=== PATIENT | female | born 1970 | race Caucasian/White ===

== ENCOUNTER 2018-08-24 10:31 | Inpatient (IN) | payer MEDICAID ==
[~2018-08-24] VITALS: Ht 177.8 cm; Wt 90.9 kg
[2018-08-24] MEDS ORDERED: normal saline 1000ML IV soln IV ONE (11:25)
[2018-08-24 11:52] LABS: BASOPHILS # (AUTO) 0.1 X10'3 (0-0.2); BASOPHILS % (AUTO) 0.5 % (0-1); EOSINOPHILS # (AUTO) 0.3 X10'3 (0-0.9); EOSINOPHILS % (AUTO) 2.5 % (0-6); HEMATOCRIT 35.4 % (35.0-45.0); HEMOGLOBIN 12.3 g/dl (12.0-16.0); LYMPHOCYTES # (AUTO) 1.5 X10'3 (1.1-4.8); LYMPHOCYTES % (AUTO) 12.2 % (21-51); MEAN CORPUSCULAR HGB CONC 34.7 % (33.0-36.5); MEAN CORPUSCULAR VOLUME 86.4 FL (78-98); MEAN PLATELET VOLUME 7.4 FL (7.4-10.4); MONOCYTES # (AUTO) 0.9 X10'3 (0-0.9); MONOCYTES % (AUTO) 6.9 % (2-12); NEUTROPHILS # (AUTO) 9.7 X10'3 (1.8-7.7); NEUTROPHILS % (AUTO) 77.9 % (42-75); PLATELET COUNT 533 X10'3 (140-440); RED CELL DISTRIBUTION WIDTH 14.8 % (11.5-14.5); WHITE BLOOD COUNT 12.5 X10'3 (4.5-11.0)
[2018-08-24 12:00] LABS: PARTIAL THROMBOPLASTIN TIME 27 SECONDS (22-32); PROTHROMBIN TIME 10.2 SECONDS (9.0-12.0)
[2018-08-24 13:20] LABS: ALANINE AMINOTRANSFERASE 30 U/L (12-78); ALBUMIN 2.4 G/DL (3.4-5.0); ALBUMIN/GLOBULIN RATIO 0.5 (1.1-1.5); ALKALINE PHOSPHATASE 98 IU/L (46-116); ANION GAP 7 (8-16); ASPARTATE AMINO TRANSFERASE 24 U/L (10-37); BILIRUBIN,TOTAL 0.3 MG/DL (0.1-1.0); BLOOD UREA NITROGEN 6 MG/DL (7-18); BUN/CREATININE RATIO 7.7 (6.6-38.0); CALCIUM 7.9 MG/DL (8.5-10.1); CHLORIDE 100 MMOL/L (99-107); CREATININE 0.78 MG/DL (0.40-0.90); GLUCOSE 79 MG/DL (70-104); MAGNESIUM 2.1 MG/DL (1.5-2.4); POTASSIUM 4.5 MMOL/L (3.5-5.1); SODIUM 137 MMOL/L (135-145); TOTAL CARBON DIOXIDE 29.6 MMOL/L (24-32); TOTAL PROTEIN 7.5 G/DL (6.4-8.2); eGFR 78 ML/MIN
[2018-08-24 13:34] LABS: CLARITY,URINE SLIGHTLY CLOUDY (Clear); COLOR,URINE STRAW (Yellow); GLUCOSE, URINE NEGATIVE (Neg); KETONES,URINE NEGATIVE (Neg); LEUKOCYTE ESTERASE ,URINE NEGATIVE (Neg); NITRITES, URINE NEGATIVE (Neg); OCCULT BLOOD,URINE NEGATIVE (Neg); PROTEIN,URINE NEGATIVE (Neg); UROBILINOGEN,URINE 0.2 E.U/dL (0.2-1.0)
[2018-08-24 13:38] LABS: URINE HCG NEGATIVE (NEG)
[2018-08-24 13:43] LABS: SQUAMOUS EPITHELIAL CELL,UR MANY /LPF (FEW); UA COLLECTION TYPE CLN CATCH MIDSTREAM
[2018-08-24 13:44] LABS: BACTERIA,URINE FEW /HPF (Neg); MUCUS STRANDS NONE SEEN /LPF (Neg); RBC,URINE 0-2 /HPF (0-2); WBC,URINE 0-4 /HPF (0-4); YEAST FEW /HPF (NEGATIVE)
[2018-08-24] MEDS ORDERED: CefTRIAXone 2gm/D5W 50ml 50 ML IV ONE (14:10)
[2018-08-24] MEDS ORDERED: magnesium Cl slow-release 64mg tablet PO PRN (15:20)
[2018-08-24] MEDS ORDERED: potassium Cl 20 mEq SR tablet PO PRN ×2 (15:20)
[2018-08-24] MEDS ORDERED: HYDROcodone/acetaminophen 5mg/325mg tablet PO PRN (15:20)
[2018-08-24] MEDS ORDERED: morphine 2 MG/ML inj. syringe IV PRN (15:20)
[2018-08-24] MEDS ORDERED: bisacodyl 10mg suppository rectal RC PRN (15:20)
[2018-08-24] MEDS ORDERED: ondansetron/PF 4mg/2ml inj IV PRN (15:20)
[2018-08-24] MEDS ORDERED: acetaminophen 325mg tablet PO PRN (15:20)
[2018-08-24] MEDS ORDERED: magnesium 4gm in 100ml NS 100 ML IV PRN (15:20)
[2018-08-24] MEDS ORDERED: magnesium 1gm/100ml D5W IVPB 100 ML IV PRN (15:20)
[2018-08-24] MEDS ORDERED: mag hydrox/Alum hydrox/simeth 30ml oral suspension PO PRN (15:20)
[2018-08-24] MEDS ORDERED: potassium Cl 40MEQ/NS 500ml 500 ML IV PRN ×2 (15:20)
[2018-08-24] MEDS ORDERED: magnesium hydroxide 30ml (MOM) UD suspension PO PRN (15:20)
[2018-08-24] MEDS ORDERED: magnesium 2GM in 50ml NS 50 ML IV PRN (15:29)
[2018-08-24] MEDS: linezolid 600mg/300ml PREMIX 300 ML IV SCH (15:47)
[2018-08-24] MEDS: normal saline 1000ml 1,000 ML IV SCH ×2 (16:02→20:30)
[2018-08-24] MEDS: aspirin 325mg tablet, delayed-release (Ecotrin) PO SCH (16:12)
[2018-08-24 20:00] VITALS: BP 133/65
[2018-08-24] MEDS: HYDROcodone/acetaminophen 10/325mg tab PO PRN (20:28)
[2018-08-24] MEDS: docusate sod 100mg capsule PO SCH (20:28)
[2018-08-24] MEDS: heparin, porcine 5000 units/ml vial SQ SCH (20:29)
[2018-08-24] MEDS ORDERED: pregabalin 25mg capsule PO SCH (21:00)
[2018-08-24] MEDS ORDERED: nicotine 21mg patch - 24 hr TD ONE (21:25)
[2018-08-24] MEDS: QUEtiapine 25mg tablet PO SCH (21:43)
[2018-08-24 23:00] VITALS: BP 113/60
[2018-08-25] MEDS: linezolid 600mg/300ml PREMIX 300 ML IV SCH ×2 (03:35→08:16)
[2018-08-25 05:29] LABS: BASOPHILS # (AUTO) 0.1 X10'3 (0-0.2); BASOPHILS % (AUTO) 0.7 % (0-1); EOSINOPHILS # (AUTO) 0.3 X10'3 (0-0.9); EOSINOPHILS % (AUTO) 3.3 % (0-6); HEMATOCRIT 33.6 % (35.0-45.0); HEMOGLOBIN 11.5 g/dl (12.0-16.0); LYMPHOCYTES # (AUTO) 1.7 X10'3 (1.1-4.8); LYMPHOCYTES % (AUTO) 22.6 % (21-51); MEAN CORPUSCULAR HEMOGLOBIN 29.9 PG (27.0-31.0); MEAN CORPUSCULAR HGB CONC 34.1 % (33.0-36.5); MEAN CORPUSCULAR VOLUME 87.8 FL (78-98); MEAN PLATELET VOLUME 7.6 FL (7.4-10.4); MONOCYTES # (AUTO) 0.5 X10'3 (0-0.9); MONOCYTES % (AUTO) 6.9 % (2-12); NEUTROPHILS # (AUTO) 5.1 X10'3 (1.8-7.7); NEUTROPHILS % (AUTO) 66.5 % (42-75); PLATELET COUNT 461 X10'3 (140-440); RED BLOOD COUNT 3.83 X10'6 (4.20-5.60); WHITE BLOOD COUNT 7.7 X10'3 (4.5-11.0)
[2018-08-25 05:36] LABS: ALBUMIN 1.9 G/DL (3.4-5.0); ANION GAP 3 (8-16); BLOOD UREA NITROGEN 7 MG/DL (7-18); BUN/CREATININE RATIO 8.9 (6.6-38.0); CHLORIDE 104 MMOL/L (99-107); CREATININE 0.79 MG/DL (0.40-0.90); GLUCOSE 84 MG/DL (70-104); MAGNESIUM 2.2 MG/DL (1.5-2.4); POTASSIUM 3.8 MMOL/L (3.5-5.1); SODIUM 137 MMOL/L (135-145); TOTAL CARBON DIOXIDE 29.8 MMOL/L (24-32); eGFR 77 ML/MIN
[2018-08-25 07:00] VITALS: BP 139/76
[2018-08-25] MEDS: K and/or MAG REPLACEMENT MC SCH (08:00)
[2018-08-25] MEDS: aspirin 325mg tablet, delayed-release (Ecotrin) PO SCH (08:15)
[2018-08-25] MEDS: docusate sod 100mg capsule PO SCH ×2 (08:15→20:00)
[2018-08-25] MEDS: heparin, porcine 5000 units/ml vial SQ SCH ×2 (08:16→20:01)
[2018-08-25] MEDS: nicotine 21mg patch - 24 hr TD SCH (08:16)
[2018-08-25] MEDS: HYDROcodone/acetaminophen 10/325mg tab PO PRN ×3 (08:21→19:58)
[2018-08-25] MEDS: morphine 2 MG/ML inj. syringe IV PRN (10:42)
[2018-08-25 11:11] VITALS: BP 152/72
[2018-08-25] MEDS ORDERED: PREG100C PO (11:53)
[2018-08-25] MEDS: CefTRIAXone/D5W-Rocephin 1gm 50 ML IV SCH (12:25)
[2018-08-25] MEDS ORDERED: lactose-reduced food (Ensure High Protein) 237ml bottle PO SCH (13:00)
[2018-08-25] MEDS ORDERED: pregabalin 75mg capsule PO SCH ×2 (14:55→21:00)
[2018-08-25] MEDS: pregabalin 75mg capsule PO SCH ×2 (15:24→21:40)
[2018-08-25] MEDS: pregabalin 25mg capsule PO SCH ×2 (15:24→21:40)
[2018-08-25] MEDS: normal saline 1000ml 1,000 ML IV SCH (16:19)
[2018-08-25 19:00] VITALS: BP 168/83
[2018-08-25] MEDS: linezolid 600mg tablet PO SCH (19:59)
[2018-08-25] MEDS: lactobacillus rhamnosus 10,000 MMU CELLS/CAPSULE PO SCH (19:59)
[2018-08-25] MEDS ORDERED: pregabalin 25mg capsule PO SCH (21:00)
[2018-08-25] MEDS: QUEtiapine 25mg tablet PO SCH (21:40)
[2018-08-25 23:00] VITALS: BP 148/73
[2018-08-26 03:28] LABS: ALBUMIN 2.2 G/DL (3.4-5.0); ANION GAP 9 (8-16); BLOOD UREA NITROGEN 9 MG/DL (7-18); CALCIUM 8.8 MG/DL (8.5-10.1); CHLORIDE 100 MMOL/L (99-107); CREATININE 0.75 MG/DL (0.40-0.90); GLUCOSE 86 MG/DL (70-104); MAGNESIUM 2.3 MG/DL (1.5-2.4); POTASSIUM 3.8 MMOL/L (3.5-5.1); SODIUM 138 MMOL/L (135-145); TOTAL CARBON DIOXIDE 29.1 MMOL/L (24-32); eGFR 82 ML/MIN
[2018-08-26] MEDS: normal saline 1000ml 1,000 ML IV SCH ×2 (05:28→17:01)
[2018-08-26 07:00] VITALS: BP 127/65
[2018-08-26] MEDS: heparin, porcine 5000 units/ml vial SQ SCH ×2 (07:03→20:31)
[2018-08-26] MEDS: K and/or MAG REPLACEMENT MC SCH (07:04)
[2018-08-26] MEDS: pregabalin 75mg capsule PO SCH ×3 (08:10→20:30)
[2018-08-26] MEDS: docusate sod 100mg capsule PO SCH ×2 (08:10→20:29)
[2018-08-26] MEDS: aspirin 325mg tablet, delayed-release (Ecotrin) PO SCH (08:10)
[2018-08-26] MEDS: CefTRIAXone/D5W-Rocephin 1gm 50 ML IV SCH (08:10)
[2018-08-26] MEDS: linezolid 600mg tablet PO SCH ×2 (08:10→20:35)
[2018-08-26] MEDS: pregabalin 25mg capsule PO SCH ×3 (08:10→20:30)
[2018-08-26] MEDS: lactobacillus rhamnosus 10,000 MMU CELLS/CAPSULE PO SCH ×2 (08:10→20:29)
[2018-08-26] MEDS: nicotine 21mg patch - 24 hr TD SCH (08:11)
[2018-08-26] MEDS: morphine 2 MG/ML inj. syringe IV PRN (11:43)
[2018-08-26 12:00] VITALS: BP 156/79
[2018-08-26 20:00] VITALS: BP 154/80
[2018-08-26] MEDS: QUEtiapine 25mg tablet PO SCH (20:29)
[2018-08-26] MEDS: HYDROcodone/acetaminophen 10/325mg tab PO PRN (23:31)
[2018-08-27] VITALS: BP 128/62
[2018-08-27 05:03] LABS: BASOPHILS # (AUTO) 0.1 X10'3 (0-0.2); BASOPHILS % (AUTO) 0.7 % (0-1); EOSINOPHILS # (AUTO) 0.3 X10'3 (0-0.9); EOSINOPHILS % (AUTO) 3.7 % (0-6); HEMATOCRIT 36.7 % (35.0-45.0); HEMOGLOBIN 12.4 g/dl (12.0-16.0); LYMPHOCYTES % (AUTO) 24.7 % (21-51); MEAN CORPUSCULAR HEMOGLOBIN 29.5 PG (27.0-31.0); MEAN CORPUSCULAR VOLUME 86.8 FL (78-98); MEAN PLATELET VOLUME 7.3 FL (7.4-10.4); MONOCYTES # (AUTO) 0.5 X10'3 (0-0.9); MONOCYTES % (AUTO) 6.7 % (2-12); NEUTROPHILS # (AUTO) 5.1 X10'3 (1.8-7.7); NEUTROPHILS % (AUTO) 64.2 % (42-75); PLATELET COUNT 548 X10'3 (140-440); RED BLOOD COUNT 4.22 X10'6 (4.20-5.60); RED CELL DISTRIBUTION WIDTH 14.8 % (11.5-14.5); WHITE BLOOD COUNT 7.9 X10'3 (4.5-11.0)
[2018-08-27] MEDS: normal saline 1000ml 1,000 ML IV SCH (05:11)
[2018-08-27 05:34] LABS: ALBUMIN 2.3 G/DL (3.4-5.0); ANION GAP 9 (8-16); BLOOD UREA NITROGEN 10 MG/DL (7-18); BUN/CREATININE RATIO 12.7 (6.6-38.0); CALCIUM 9.2 MG/DL (8.5-10.1); CHLORIDE 101 MMOL/L (99-107); CREATININE 0.79 MG/DL (0.40-0.90); GLUCOSE 76 MG/DL (70-104); MAGNESIUM 2.3 MG/DL (1.5-2.4); POTASSIUM 3.9 MMOL/L (3.5-5.1); SODIUM 139 MMOL/L (135-145); TOTAL CARBON DIOXIDE 28.6 MMOL/L (24-32); eGFR 77 ML/MIN
[2018-08-27 06:59] VITALS: BP 133/88
[2018-08-27] MEDS: pregabalin 75mg capsule PO SCH ×3 (07:20→20:23)
[2018-08-27] MEDS: docusate sod 100mg capsule PO SCH ×2 (07:20→20:23)
[2018-08-27] MEDS: lactobacillus rhamnosus 10,000 MMU CELLS/CAPSULE PO SCH ×2 (07:20→20:23)
[2018-08-27] MEDS: aspirin 325mg tablet, delayed-release (Ecotrin) PO SCH (07:20)
[2018-08-27] MEDS: linezolid 600mg tablet PO SCH (07:20)
[2018-08-27] MEDS: pregabalin 25mg capsule PO SCH ×3 (07:20→20:23)
[2018-08-27] MEDS: CefTRIAXone/D5W-Rocephin 1gm 50 ML IV SCH (07:21)
[2018-08-27] MEDS: nicotine 21mg patch - 24 hr TD SCH (07:21)
[2018-08-27] MEDS: heparin, porcine 5000 units/ml vial SQ SCH ×2 (07:22→20:24)
[2018-08-27] MEDS: K and/or MAG REPLACEMENT MC SCH (07:23)
[2018-08-27] MEDS ORDERED: LIDOcaine 1% (10mg/ml)w/preservative injection 20ml MDV SQ ONE (08:30)
[2018-08-27] MEDS ORDERED: LIDOcaine 2% 5ml jelly TOP ONE (08:30)
[2018-08-27] MEDS ORDERED: LIDOcaine 1% (10mg/ml) 2ml vial SQ ONE (08:45)
[2018-08-27] MEDS: HYDROcodone/acetaminophen 10/325mg tab PO PRN ×2 (10:12→20:28)
[2018-08-27] MEDS: morphine 2 MG/ML inj. syringe IV PRN (10:55)
[2018-08-27 12:00] VITALS: BP 142/77
[2018-08-27] MEDS: lactose-reduced food (Ensure High Protein) 237ml bottle PO SCH ×2 (13:00→18:13)
[2018-08-27 13:23] LABS: C-REACTIVE PROTEIN 2.79 MG/DL (0.0-0.5)
[2018-08-27 13:33] LABS: HEMOGLOBIN A1C 6.1 % (4.5-6.2)
[2018-08-27 14:25] LABS: HIV ANTIBODY 1&2 RAPID NON-REACTIVE (Neg)
[2018-08-27] MEDS: Potassium Cl inj 10 MEQ in normal saline 1000ml 1,000 ML IV SCH (16:36)
[2018-08-27] MEDS ORDERED: LORA10TA7 PO (17:03)
[2018-08-27] MEDS ORDERED: CLOP75TA15 PO (17:03)
[2018-08-27] MEDS ORDERED: METH-360 PO (17:06)
[2018-08-27 20:00] VITALS: BP 143/64
[2018-08-27] MEDS: QUEtiapine 25mg tablet PO SCH (20:23)
[2018-08-28] VITALS: BP 143/61
[2018-08-28] MEDS ORDERED: NIAC500T23 (05:22)
[2018-08-28] MEDS ORDERED: OMEP-50 (05:22)
[2018-08-28] MEDS ORDERED: QUET25TA PO (05:22)
[2018-08-28] MEDS ORDERED: ALBU8HFA PO (05:22)
[2018-08-28] MEDS ORDERED: OMEG1CAP2 (05:22)
[2018-08-28] MEDS ORDERED: SIMV10TA2 PO (05:22)
[2018-08-28 05:29] LABS: ALBUMIN 2.5 G/DL (3.4-5.0); ANION GAP 9 (8-16); CALCIUM 8.8 MG/DL (8.5-10.1); CHLORIDE 102 MMOL/L (99-107); CREATININE 0.73 MG/DL (0.40-0.90); GLUCOSE 79 MG/DL (70-104); MAGNESIUM 2.3 MG/DL (1.5-2.4); SODIUM 138 MMOL/L (135-145); TOTAL CARBON DIOXIDE 27.4 MMOL/L (24-32); eGFR 85 ML/MIN
[2018-08-28] MEDS: HYDROcodone/acetaminophen 10/325mg tab PO PRN ×2 (05:47→20:28)
[2018-08-28] MEDS: Potassium Cl inj 10 MEQ in normal saline 1000ml 1,000 ML IV SCH ×2 (05:47→20:32)
[2018-08-28 05:48] LABS: BLOOD UREA NITROGEN 12 MG/DL (7-18); BUN/CREATININE RATIO 16.4 (6.6-38.0)
[2018-08-28 07:39] VITALS: BP 141/77
[2018-08-28] MEDS: K and/or MAG REPLACEMENT MC SCH (07:41)
[2018-08-28] MEDS: morphine 2 MG/ML inj. syringe IV PRN (07:55)
[2018-08-28] MEDS: heparin, porcine 5000 units/ml vial SQ SCH ×2 (08:00→20:29)
[2018-08-28] MEDS: lactobacillus rhamnosus 10,000 MMU CELLS/CAPSULE PO SCH ×2 (08:23→20:28)
[2018-08-28] MEDS: aspirin 325mg tablet, delayed-release (Ecotrin) PO SCH (08:23)
[2018-08-28] MEDS: pregabalin 25mg capsule PO SCH ×3 (08:24→20:27)
[2018-08-28] MEDS: docusate sod 100mg capsule PO SCH ×2 (08:24→20:27)
[2018-08-28] MEDS: pregabalin 75mg capsule PO SCH ×3 (08:24→20:27)
[2018-08-28] MEDS: nicotine 21mg patch - 24 hr TD SCH (08:26)
[2018-08-28] MEDS: CefTRIAXone 2gm/D5W 50ml 50 ML IV SCH (08:27)
[2018-08-28] MEDS: lactose-reduced food (Ensure High Protein) 237ml bottle PO SCH ×3 (08:34→18:38)
[2018-08-28 11:44] VITALS: BP 143/76
[2018-08-28 20:00] VITALS: BP 154/79
[2018-08-28] MEDS: QUEtiapine 25mg tablet PO SCH (20:28)
[2018-08-29] VITALS: BP 148/65
[2018-08-29 05:03] LABS: BASOPHILS # (AUTO) 0.1 X10'3 (0-0.2); BASOPHILS % (AUTO) 0.7 % (0-1); EOSINOPHILS # (AUTO) 0.3 X10'3 (0-0.9); EOSINOPHILS % (AUTO) 3.1 % (0-6); HEMATOCRIT 40.2 % (35.0-45.0); HEMOGLOBIN 13.6 g/dl (12.0-16.0); LYMPHOCYTES # (AUTO) 2.1 X10'3 (1.1-4.8); LYMPHOCYTES % (AUTO) 23.2 % (21-51); MEAN CORPUSCULAR HEMOGLOBIN 29.1 PG (27.0-31.0); MEAN CORPUSCULAR HGB CONC 33.7 % (33.0-36.5); MEAN CORPUSCULAR VOLUME 86.4 FL (78-98); MEAN PLATELET VOLUME 7.1 FL (7.4-10.4); MONOCYTES # (AUTO) 0.4 X10'3 (0-0.9); MONOCYTES % (AUTO) 4.8 % (2-12); NEUTROPHILS # (AUTO) 6.2 X10'3 (1.8-7.7); NEUTROPHILS % (AUTO) 68.2 % (42-75); PLATELET COUNT 585 X10'3 (140-440); RED BLOOD COUNT 4.66 X10'6 (4.20-5.60); RED CELL DISTRIBUTION WIDTH 15.2 % (11.5-14.5)
[2018-08-29 05:15] LABS: ALBUMIN 2.7 G/DL (3.4-5.0); ANION GAP 9 (8-16); BLOOD UREA NITROGEN 16 MG/DL (7-18); BUN/CREATININE RATIO 21.6 (6.6-38.0); CALCIUM 8.9 MG/DL (8.5-10.1); CHLORIDE 100 MMOL/L (99-107); CREATININE 0.74 MG/DL (0.40-0.90); GLUCOSE 86 MG/DL (70-104); MAGNESIUM 2.3 MG/DL (1.5-2.4); POTASSIUM 4.3 MMOL/L (3.5-5.1); SODIUM 136 MMOL/L (135-145); TOTAL CARBON DIOXIDE 27.1 MMOL/L (24-32); eGFR 83 ML/MIN
[2018-08-29] MEDS: HYDROcodone/acetaminophen 10/325mg tab PO PRN ×3 (06:01→17:44)
[2018-08-29] MEDS: aspirin 325mg tablet, delayed-release (Ecotrin) PO SCH (07:48)
[2018-08-29] MEDS: pregabalin 75mg capsule PO SCH ×3 (07:48→20:43)
[2018-08-29] MEDS: pregabalin 25mg capsule PO SCH ×3 (07:48→20:42)
[2018-08-29] MEDS: lactobacillus rhamnosus 10,000 MMU CELLS/CAPSULE PO SCH ×2 (07:48→20:42)
[2018-08-29] MEDS: CefTRIAXone 2gm/D5W 50ml 50 ML IV SCH (07:48)
[2018-08-29] MEDS: docusate sod 100mg capsule PO SCH ×2 (07:48→20:42)
[2018-08-29] MEDS: heparin, porcine 5000 units/ml vial SQ SCH ×2 (07:49→20:42)
[2018-08-29] MEDS: nicotine 21mg patch - 24 hr TD SCH (07:50)
[2018-08-29] MEDS: lactose-reduced food (Ensure High Protein) 237ml bottle PO SCH ×4 (07:58→18:27)
[2018-08-29] MEDS: K and/or MAG REPLACEMENT MC SCH (07:59)
[2018-08-29 08:00] VITALS: BP 123/65
[2018-08-29] MEDS: Potassium Cl inj 10 MEQ in normal saline 1000ml 1,000 ML IV SCH (10:33)
[2018-08-29 11:53] VITALS: BP 110/61
[2018-08-29 20:00] VITALS: BP 144/76
[2018-08-29] MEDS: QUEtiapine 25mg tablet PO SCH (20:43)
[2018-08-30] VITALS: BP 110/54
[2018-08-30 07:07] VITALS: BP 129/73
[2018-08-30] MEDS: pregabalin 75mg capsule PO SCH ×3 (07:52→20:11)
[2018-08-30] MEDS: aspirin 325mg tablet, delayed-release (Ecotrin) PO SCH (07:52)
[2018-08-30] MEDS: nicotine 21mg patch - 24 hr TD SCH (07:52)
[2018-08-30] MEDS: pregabalin 25mg capsule PO SCH ×3 (07:52→20:11)
[2018-08-30] MEDS: lactobacillus rhamnosus 10,000 MMU CELLS/CAPSULE PO SCH ×2 (07:52→20:11)
[2018-08-30] MEDS: heparin, porcine 5000 units/ml vial SQ SCH ×2 (07:53→11:22)
[2018-08-30] MEDS: CefTRIAXone 2gm/D5W 50ml 50 ML IV SCH (07:53)
[2018-08-30] MEDS: docusate sod 100mg capsule PO SCH ×2 (08:00→20:11)
[2018-08-30] MEDS: K and/or MAG REPLACEMENT MC SCH (08:00)
[2018-08-30] MEDS: lactose-reduced food (Ensure High Protein) 237ml bottle PO SCH ×3 (08:02→18:00)
[2018-08-30 08:06] LABS: ALBUMIN 2.9 G/DL (3.4-5.0); ANION GAP 10 (8-16); BLOOD UREA NITROGEN 16 MG/DL (7-18); BUN/CREATININE RATIO 22.9 (6.6-38.0); CALCIUM 9.4 MG/DL (8.5-10.1); CHLORIDE 100 MMOL/L (99-107); GLUCOSE 88 MG/DL (70-104); MAGNESIUM 2.3 MG/DL (1.5-2.4); POTASSIUM 4.2 MMOL/L (3.5-5.1); SODIUM 137 MMOL/L (135-145); TOTAL CARBON DIOXIDE 26.6 MMOL/L (24-32); eGFR 89 ML/MIN
[2018-08-30] MEDS: HYDROcodone/acetaminophen 10/325mg tab PO PRN ×2 (08:25→20:13)
[2018-08-30 11:54] VITALS: BP 122/64
[2018-08-30 13:43] LABS: BASOPHILS % (AUTO) 0.4 % (0-1); EOSINOPHILS # (AUTO) 0.2 X10'3 (0-0.9); EOSINOPHILS % (AUTO) 2.2 % (0-6); LYMPHOCYTES # (AUTO) 1.6 X10'3 (1.1-4.8); LYMPHOCYTES % (AUTO) 14.4 % (21-51); MEAN CORPUSCULAR HEMOGLOBIN 29.4 PG (27.0-31.0); MEAN CORPUSCULAR HGB CONC 33.8 % (33.0-36.5); MEAN CORPUSCULAR VOLUME 86.9 FL (78-98); MEAN PLATELET VOLUME 7.1 FL (7.4-10.4); MONOCYTES # (AUTO) 0.3 X10'3 (0-0.9); MONOCYTES % (AUTO) 3.2 % (2-12); NEUTROPHILS # (AUTO) 8.6 X10'3 (1.8-7.7); NEUTROPHILS % (AUTO) 79.8 % (42-75); PRE OP HEMATOCRIT 40.1 % (35.0-45.0); PRE OP HEMOGLOBIN 13.6 g/dL (12.0-16.0); PRE OP PLATELET COUNT 564 X10'3 (140-440); RED BLOOD COUNT 4.62 X10'6 (4.20-5.60); RED CELL DISTRIBUTION WIDTH 15.5 % (11.5-14.5)
[2018-08-30 16:26] LABS: PRE OP PROTIME 10.1 SECONDS (9.0-12.0)
[2018-08-30 18:40] VITALS: BP 145/75
[2018-08-30] MEDS: QUEtiapine 25mg tablet PO SCH (21:23)
[2018-08-31] VITALS (18 sets, daily range): BP systolic 99–122; BP diastolic 47–73
[2018-08-31 07:01] LABS: ALBUMIN 3.2 G/DL (3.4-5.0); ANION GAP 8 (8-16); BLOOD UREA NITROGEN 18 MG/DL (7-18); BUN/CREATININE RATIO 21.4 (6.6-38.0); CALCIUM 9.7 MG/DL (8.5-10.1); CHLORIDE 98 MMOL/L (99-107); CREATININE 0.84 MG/DL (0.40-0.90); GLUCOSE 84 MG/DL (70-104); MAGNESIUM 2.4 MG/DL (1.5-2.4); SODIUM 138 MMOL/L (135-145); TOTAL CARBON DIOXIDE 32.1 MMOL/L (24-32); eGFR 72 ML/MIN
[2018-08-31] MEDS: nicotine 21mg patch - 24 hr TD SCH (08:00)
[2018-08-31] MEDS: lactobacillus rhamnosus 10,000 MMU CELLS/CAPSULE PO SCH ×2 (08:00→21:03)
[2018-08-31] MEDS: lactose-reduced food (Ensure High Protein) 237ml bottle PO SCH ×3 (08:00→18:00)
[2018-08-31] MEDS: pregabalin 25mg capsule PO SCH ×3 (08:00→21:03)
[2018-08-31] MEDS: K and/or MAG REPLACEMENT MC SCH (08:00)
[2018-08-31] MEDS: CefTRIAXone 2gm/D5W 50ml 50 ML IV SCH (08:00)
[2018-08-31] MEDS: docusate sod 100mg capsule PO SCH ×2 (08:00→20:00)
[2018-08-31] MEDS: pregabalin 75mg capsule PO SCH ×3 (08:00→21:03)
[2018-08-31] MEDS: aspirin 325mg tablet, delayed-release (Ecotrin) PO SCH (08:00)
[2018-08-31] MEDS: heparin, porcine 5000 units/ml vial SQ SCH ×2 (09:21→21:01)
[2018-08-31] MEDS: HYDROcodone/acetaminophen 10/325mg tab PO PRN ×2 (09:22→22:08)
[2018-08-31] MEDS ORDERED: BUPIVAcaine/PF 2.5mg/ml (0.25%) 10ml vial ONE (10:28)
[2018-08-31] MEDS ORDERED: bacitracin 15gm ointment TP ONE (10:30)
[2018-08-31] MEDS ORDERED: fentaNYL/PF 50MCG/1 ML 2ML syringe ONE (11:00)
[2018-08-31] MEDS ORDERED: BUPIVAcaine/PF 2.5 mg/ml (0.25%) 30ml vial ONE (11:00)
[2018-08-31] MEDS ORDERED: BUPIVAcaine/PF 7.5mg/ml (0.75%) 10ml vial ONE (11:00)
[2018-08-31] MEDS ORDERED: MIDAZolam 5mg/5ml vial ONE (11:00)
[2018-08-31] MEDS ORDERED: LIDOcaine 1%/PF 5ML 10 MG/ML VIAL ONE (11:00)
[2018-08-31] MEDS ORDERED: propofol 10mg/ml 20ml vial IV ONE (11:00)
[2018-08-31] MEDS ORDERED: povidone-iodine 10% topical ointment 28.4gm TP ONE (11:38)
[2018-08-31] MEDS ORDERED: meperidine/PF 25mg/ml syringe ONE (12:41)
[2018-08-31] MEDS ORDERED: meperidine/PF 25mg/ml syringe IV PRN ×3 (13:25)
[2018-08-31] MEDS ORDERED: ondansetron/PF 4mg/2ml inj IV PRN (13:25)
[2018-08-31] MEDS ORDERED: proCHLORperazine 10 MG/2 ml inj IV PRN (13:25)
[2018-08-31] MEDS ORDERED: ringers solution, lacted 1,000 ML IV SCH (13:25)
[2018-08-31] MEDS ORDERED: morphine 4 MG/ML inj SYRINge IV PRN ×2 (13:25)
[2018-08-31] MEDS ORDERED: normal saline 1000ml 1,000 ML IV SCH (16:06)
[2018-08-31] MEDS: NYSTATIN CREAM - 30GM TUBE TP SCH (20:00)
[2018-08-31] MEDS: QUEtiapine 25mg tablet PO SCH (21:03)
[2018-09-01] VITALS: BP 102/59
[2018-09-01 05:12] LABS: BASOPHILS # (AUTO) 0.1 X10'3 (0-0.2); BASOPHILS % (AUTO) 0.5 % (0-1); EOSINOPHILS # (AUTO) 0.4 X10'3 (0-0.9); HEMATOCRIT 34.2 % (35.0-45.0); HEMOGLOBIN 11.8 g/dl (12.0-16.0); LYMPHOCYTES # (AUTO) 1.4 X10'3 (1.1-4.8); LYMPHOCYTES % (AUTO) 11.8 % (21-51); MEAN CORPUSCULAR HEMOGLOBIN 29.9 PG (27.0-31.0); MEAN CORPUSCULAR HGB CONC 34.3 % (33.0-36.5); MEAN CORPUSCULAR VOLUME 87.2 FL (78-98); MEAN PLATELET VOLUME 7.3 FL (7.4-10.4); MONOCYTES # (AUTO) 0.8 X10'3 (0-0.9); MONOCYTES % (AUTO) 6.5 % (2-12); NEUTROPHILS # (AUTO) 9.5 X10'3 (1.8-7.7); NEUTROPHILS % (AUTO) 78.2 % (42-75); PLATELET COUNT 450 X10'3 (140-440); RED BLOOD COUNT 3.93 X10'6 (4.20-5.60); RED CELL DISTRIBUTION WIDTH 15.2 % (11.5-14.5); WHITE BLOOD COUNT 12.1 X10'3 (4.5-11.0)
[2018-09-01 05:32] LABS: ALBUMIN 2.8 G/DL (3.4-5.0); ANION GAP 11 (8-16); BLOOD UREA NITROGEN 19 MG/DL (7-18); BUN/CREATININE RATIO 22.4 (6.6-38.0); CALCIUM 9.3 MG/DL (8.5-10.1); CHLORIDE 97 MMOL/L (99-107); CREATININE 0.85 MG/DL (0.40-0.90); GLUCOSE 86 MG/DL (70-104); POTASSIUM 4.3 MMOL/L (3.5-5.1); SODIUM 135 MMOL/L (135-145); TOTAL CARBON DIOXIDE 27.5 MMOL/L (24-32); eGFR 71 ML/MIN
[2018-09-01 07:07] VITALS: BP 106/60
[2018-09-01] MEDS: CefTRIAXone 2gm/D5W 50ml 50 ML IV SCH (07:34)
[2018-09-01] MEDS: lactobacillus rhamnosus 10,000 MMU CELLS/CAPSULE PO SCH ×2 (07:34→19:08)
[2018-09-01] MEDS: pregabalin 25mg capsule PO SCH ×3 (07:34→21:13)
[2018-09-01] MEDS: aspirin 325mg tablet, delayed-release (Ecotrin) PO SCH (07:34)
[2018-09-01] MEDS: pregabalin 75mg capsule PO SCH ×3 (07:34→21:14)
[2018-09-01] MEDS: docusate sod 100mg capsule PO SCH ×2 (07:35→19:08)
[2018-09-01] MEDS: HYDROcodone/acetaminophen 10/325mg tab PO PRN ×3 (07:35→21:14)
[2018-09-01] MEDS: lactose-reduced food (Ensure High Protein) 237ml bottle PO SCH ×3 (07:36→18:00)
[2018-09-01] MEDS: nicotine 21mg patch - 24 hr TD SCH (07:36)
[2018-09-01] MEDS: K and/or MAG REPLACEMENT MC SCH (08:00)
[2018-09-01] MEDS: NYSTATIN CREAM - 30GM TUBE TP SCH (08:00)
[2018-09-01 12:12] VITALS: BP 99/64
[2018-09-01] MEDS: heparin, porcine 5000 units/ml vial SQ SCH (19:09)
[2018-09-01] MEDS: morphine 2 MG/ML inj. syringe IV PRN (19:09)
[2018-09-01 20:00] VITALS: BP 105/59
[2018-09-01] MEDS: QUEtiapine 25mg tablet PO SCH (21:14)
[2018-09-01] MEDS: clotrimazole 1% vaginal cream 45gm VG SCH (21:15)
[2018-09-02] VITALS: BP 99/58
[2018-09-02 04:53] LABS: ALBUMIN 2.7 G/DL (3.4-5.0); ANION GAP 8 (8-16); BLOOD UREA NITROGEN 17 MG/DL (7-18); BUN/CREATININE RATIO 22.7 (6.6-38.0); CALCIUM 9.1 MG/DL (8.5-10.1); CHLORIDE 99 MMOL/L (99-107); CREATININE 0.75 MG/DL (0.40-0.90); GLUCOSE 85 MG/DL (70-104); POTASSIUM 3.9 MMOL/L (3.5-5.1); SODIUM 136 MMOL/L (135-145); TOTAL CARBON DIOXIDE 28.6 MMOL/L (24-32); eGFR 82 ML/MIN
[2018-09-02 07:15] VITALS: BP 100/66
[2018-09-02] MEDS: CefTRIAXone 2gm/D5W 50ml 50 ML IV SCH (07:36)
[2018-09-02] MEDS: pregabalin 25mg capsule PO SCH ×3 (07:37→20:56)
[2018-09-02] MEDS: pregabalin 75mg capsule PO SCH ×3 (07:37→20:57)
[2018-09-02] MEDS: heparin, porcine 5000 units/ml vial SQ SCH ×2 (07:37→19:14)
[2018-09-02] MEDS: aspirin 325mg tablet, delayed-release (Ecotrin) PO SCH (07:37)
[2018-09-02] MEDS: HYDROcodone/acetaminophen 10/325mg tab PO PRN ×3 (07:38→20:57)
[2018-09-02] MEDS: lactobacillus rhamnosus 10,000 MMU CELLS/CAPSULE PO SCH ×2 (07:38→19:14)
[2018-09-02] MEDS: docusate sod 100mg capsule PO SCH ×2 (07:38→19:14)
[2018-09-02] MEDS: nicotine 21mg patch - 24 hr TD SCH (07:39)
[2018-09-02] MEDS: K and/or MAG REPLACEMENT MC SCH (08:00)
[2018-09-02] MEDS: lactose-reduced food (Ensure High Protein) 237ml bottle PO SCH ×3 (08:14→18:00)
[2018-09-02 10:56] VITALS: BP 84/59
[2018-09-02 18:00] VITALS: BP 120/58
[2018-09-02] MEDS: QUEtiapine 25mg tablet PO SCH (20:57)
[2018-09-02] MEDS: clotrimazole 1% vaginal cream 45gm VG SCH (20:58)
[2018-09-03] VITALS: BP 105/59
[2018-09-03] MEDS: HYDROcodone/acetaminophen 10/325mg tab PO PRN ×2 (01:24→12:49)
[2018-09-03 05:57] LABS: ALBUMIN 2.7 G/DL (3.4-5.0); ANION GAP 7 (8-16); BLOOD UREA NITROGEN 16 MG/DL (7-18); BUN/CREATININE RATIO 22.9 (6.6-38.0); CALCIUM 8.9 MG/DL (8.5-10.1); CHLORIDE 101 MMOL/L (99-107); GLUCOSE 80 MG/DL (70-104); POTASSIUM 4.1 MMOL/L (3.5-5.1); SODIUM 139 MMOL/L (135-145); TOTAL CARBON DIOXIDE 31.1 MMOL/L (24-32); eGFR 89 ML/MIN
[2018-09-03 07:00] VITALS: BP 112/58
[2018-09-03] MEDS: docusate sod 100mg capsule PO SCH ×2 (08:00→20:20)
[2018-09-03] MEDS: K and/or MAG REPLACEMENT MC SCH (08:00)
[2018-09-03] MEDS: heparin, porcine 5000 units/ml vial SQ SCH ×2 (08:09→20:21)
[2018-09-03] MEDS: aspirin 325mg tablet, delayed-release (Ecotrin) PO SCH (08:09)
[2018-09-03] MEDS: pregabalin 75mg capsule PO SCH ×3 (08:09→20:19)
[2018-09-03] MEDS: pregabalin 25mg capsule PO SCH ×3 (08:09→20:19)
[2018-09-03] MEDS: lactobacillus rhamnosus 10,000 MMU CELLS/CAPSULE PO SCH ×2 (08:09→20:20)
[2018-09-03] MEDS: nicotine 21mg patch - 24 hr TD SCH (08:10)
[2018-09-03] MEDS: CefTRIAXone 2gm/D5W 50ml 50 ML IV SCH (08:10)
[2018-09-03] MEDS: lactose-reduced food (Ensure High Protein) 237ml bottle PO SCH ×3 (08:11→18:08)
[2018-09-03 11:00] VITALS: BP 122/68
[2018-09-03 18:00] VITALS: BP 117/60
[2018-09-03] MEDS: QUEtiapine 25mg tablet PO SCH (20:20)
[2018-09-03] MEDS: clotrimazole 1% vaginal cream 45gm VG SCH (20:27)
[2018-09-04] VITALS: BP 103/53
[2018-09-04 05:47] LABS: BASOPHILS # (AUTO) 0.1 X10'3 (0-0.2); BASOPHILS % (AUTO) 0.9 % (0-1); EOSINOPHILS # (AUTO) 0.3 X10'3 (0-0.9); HEMATOCRIT 32.3 % (35.0-45.0); HEMOGLOBIN 11.4 g/dl (12.0-16.0); LYMPHOCYTES # (AUTO) 2.1 X10'3 (1.1-4.8); LYMPHOCYTES % (AUTO) 23.1 % (21-51); MEAN CORPUSCULAR HEMOGLOBIN 30.6 PG (27.0-31.0); MEAN CORPUSCULAR HGB CONC 35.2 % (33.0-36.5); MEAN CORPUSCULAR VOLUME 87.1 FL (78-98); MEAN PLATELET VOLUME 8.6 FL (7.4-10.4); MONOCYTES # (AUTO) 0.7 X10'3 (0-0.9); MONOCYTES % (AUTO) 7.4 % (2-12); NEUTROPHILS # (AUTO) 5.9 X10'3 (1.8-7.7); NEUTROPHILS % (AUTO) 65.6 % (42-75); PLATELET COUNT 386 X10'3 (140-440); RED CELL DISTRIBUTION WIDTH 15.3 % (11.5-14.5); WHITE BLOOD COUNT 9.1 X10'3 (4.5-11.0)
[2018-09-04 05:59] LABS: ALANINE AMINOTRANSFERASE 50 U/L (12-78); ALBUMIN 2.7 G/DL (3.4-5.0); ALBUMIN/GLOBULIN RATIO 0.6 (1.1-1.5); ALKALINE PHOSPHATASE 75 IU/L (46-116); ANION GAP 9 (8-16); ASPARTATE AMINO TRANSFERASE 36 U/L (10-37); BILIRUBIN,TOTAL 0.2 MG/DL (0.1-1.0); BLOOD UREA NITROGEN 17 MG/DL (7-18); BUN/CREATININE RATIO 24.6 (6.6-38.0); CALCIUM 8.8 MG/DL (8.5-10.1); CHLORIDE 99 MMOL/L (99-107); CREATININE 0.69 MG/DL (0.40-0.90); GLUCOSE 86 MG/DL (70-104); PHOSPHORUS 3.5 MG/DL (2.3-4.5); SODIUM 137 MMOL/L (135-145); TOTAL CARBON DIOXIDE 29.2 MMOL/L (24-32); TOTAL PROTEIN 7.5 G/DL (6.4-8.2); eGFR 90 ML/MIN
[2018-09-04 07:00] VITALS: BP 116/64
[2018-09-04] MEDS: lactose-reduced food (Ensure High Protein) 237ml bottle PO SCH ×3 (08:00→18:00)
[2018-09-04] MEDS: CefTRIAXone 2gm/D5W 50ml 50 ML IV SCH (08:00)
[2018-09-04] MEDS: heparin, porcine 5000 units/ml vial SQ SCH ×2 (08:00→20:21)
[2018-09-04] MEDS: pregabalin 75mg capsule PO SCH ×3 (08:00→20:21)
[2018-09-04] MEDS: nicotine 21mg patch - 24 hr TD SCH (08:00)
[2018-09-04] MEDS: aspirin 325mg tablet, delayed-release (Ecotrin) PO SCH (08:00)
[2018-09-04] MEDS: lactobacillus rhamnosus 10,000 MMU CELLS/CAPSULE PO SCH ×2 (08:00→20:21)
[2018-09-04] MEDS: pregabalin 25mg capsule PO SCH ×3 (08:00→20:22)
[2018-09-04] MEDS: docusate sod 100mg capsule PO SCH ×2 (08:00→20:21)
[2018-09-04] MEDS: K and/or MAG REPLACEMENT MC SCH (08:00)
[2018-09-04] MEDS: HYDROcodone/acetaminophen 10/325mg tab PO PRN ×2 (11:04→20:22)
[2018-09-04 11:57] VITALS: BP 97/64
[2018-09-04 20:00] VITALS: BP 130/62
[2018-09-04] MEDS: clotrimazole 1% vaginal cream 45gm VG SCH (20:22)
[2018-09-04] MEDS: QUEtiapine 25mg tablet PO SCH (20:22)
[2018-09-05] VITALS: BP 122/82
[2018-09-05 04:09] LABS: BASOPHILS # (AUTO) 0.1 X10'3 (0-0.2); EOSINOPHILS # (AUTO) 0.3 X10'3 (0-0.9); MONOCYTES # (AUTO) 0.7 X10'3 (0-0.9); NEUTROPHILS # (AUTO) 5.6 X10'3 (1.8-7.7)
[2018-09-05 04:12] LABS: ALANINE AMINOTRANSFERASE 52 U/L (12-78); ALBUMIN 2.8 G/DL (3.4-5.0); ALBUMIN/GLOBULIN RATIO 0.6 (1.1-1.5); ALKALINE PHOSPHATASE 73 IU/L (46-116); ANION GAP 7 (8-16); ASPARTATE AMINO TRANSFERASE 31 U/L (10-37); BILIRUBIN,TOTAL 0.2 MG/DL (0.1-1.0); BLOOD UREA NITROGEN 18 MG/DL (7-18); BUN/CREATININE RATIO 23.4 (6.6-38.0); CHLORIDE 98 MMOL/L (99-107); CREATININE 0.77 MG/DL (0.40-0.90); GLUCOSE 103 MG/DL (70-104); PHOSPHORUS 3.9 MG/DL (2.3-4.5); POTASSIUM 3.8 MMOL/L (3.5-5.1); SODIUM 136 MMOL/L (135-145); TOTAL CARBON DIOXIDE 30.6 MMOL/L (24-32); TOTAL PROTEIN 7.5 G/DL (6.4-8.2); eGFR 80 ML/MIN
[2018-09-05 04:21] LABS: BASOPHILS % (AUTO) 0.9 % (0-1); HEMATOCRIT 32.1 % (35.0-45.0); HEMOGLOBIN 11.3 g/dl (12.0-16.0); LYMPHOCYTES # (AUTO) 2.7 X10'3 (1.1-4.8); LYMPHOCYTES % (AUTO) 28.2 % (21-51); MEAN CORPUSCULAR HEMOGLOBIN 30.6 PG (27.0-31.0); MEAN CORPUSCULAR HGB CONC 35.1 % (33.0-36.5); MEAN PLATELET VOLUME 8.4 FL (7.4-10.4); MONOCYTES % (AUTO) 7.3 % (2-12); NEUTROPHILS % (AUTO) 60.6 % (42-75); PLATELET COUNT 412 X10'3 (140-440); RED BLOOD COUNT 3.69 X10'6 (4.20-5.60); RED CELL DISTRIBUTION WIDTH 15.2 % (11.5-14.5); WHITE BLOOD COUNT 9.4 X10'3 (4.5-11.0)
[2018-09-05 08:00] VITALS: BP 102/64
[2018-09-05] MEDS: lactobacillus rhamnosus 10,000 MMU CELLS/CAPSULE PO SCH ×2 (08:17→19:34)
[2018-09-05] MEDS: pregabalin 75mg capsule PO SCH ×3 (08:18→19:35)
[2018-09-05] MEDS: pregabalin 25mg capsule PO SCH ×3 (08:18→19:35)
[2018-09-05] MEDS: aspirin 325mg tablet, delayed-release (Ecotrin) PO SCH (08:18)
[2018-09-05] MEDS: nicotine 21mg patch - 24 hr TD SCH (08:19)
[2018-09-05] MEDS: CefTRIAXone 2gm/D5W 50ml 50 ML IV SCH (08:21)
[2018-09-05] MEDS: heparin, porcine 5000 units/ml vial SQ SCH ×2 (08:21→19:35)
[2018-09-05] MEDS: docusate sod 100mg capsule PO SCH ×2 (08:22→19:34)
[2018-09-05] MEDS: HYDROcodone/acetaminophen 10/325mg tab PO PRN ×3 (08:42→23:55)
[2018-09-05] MEDS: lactose-reduced food (Ensure High Protein) 237ml bottle PO SCH ×3 (08:44→17:43)
[2018-09-05] MEDS: K and/or MAG REPLACEMENT MC SCH (08:48)
[2018-09-05 12:21] VITALS: BP 94/76
[2018-09-05 19:35] VITALS: BP 137/83
[2018-09-05] MEDS: clotrimazole 1% vaginal cream 45gm VG SCH (19:36)
[2018-09-05] MEDS: QUEtiapine 25mg tablet PO SCH (19:45)
[2018-09-06] VITALS: BP 109/58
[2018-09-06] MEDS: HYDROcodone/acetaminophen 10/325mg tab PO PRN ×3 (05:00→19:55)
[2018-09-06 05:25] LABS: ALANINE AMINOTRANSFERASE 65 U/L (12-78); ALBUMIN 2.9 G/DL (3.4-5.0); ALBUMIN/GLOBULIN RATIO 0.6 (1.1-1.5); ALKALINE PHOSPHATASE 81 IU/L (46-116); ANION GAP 5 (8-16); ASPARTATE AMINO TRANSFERASE 34 U/L (10-37); BILIRUBIN,TOTAL 0.2 MG/DL (0.1-1.0); BLOOD UREA NITROGEN 17 MG/DL (7-18); BUN/CREATININE RATIO 28.3 (6.6-38.0); CALCIUM 9.1 MG/DL (8.5-10.1); CHLORIDE 98 MMOL/L (99-107); GLUCOSE 103 MG/DL (70-104); MAGNESIUM 2.1 MG/DL (1.5-2.4); PHOSPHORUS 3.9 MG/DL (2.3-4.5); POTASSIUM 4.2 MMOL/L (3.5-5.1); SODIUM 136 MMOL/L (135-145); TOTAL CARBON DIOXIDE 32.8 MMOL/L (24-32); TOTAL PROTEIN 7.8 G/DL (6.4-8.2); eGFR > 90 ML/MIN
[2018-09-06 05:49] LABS: BASOPHILS # (AUTO) 0.1 X10'3 (0-0.2); EOSINOPHILS # (AUTO) 0.3 X10'3 (0-0.9); EOSINOPHILS % (AUTO) 3.5 % (0-6); HEMATOCRIT 33.5 % (35.0-45.0); HEMOGLOBIN 11.9 g/dl (12.0-16.0); LYMPHOCYTES # (AUTO) 2.4 X10'3 (1.1-4.8); LYMPHOCYTES % (AUTO) 28.6 % (21-51); MEAN CORPUSCULAR HEMOGLOBIN 30.8 PG (27.0-31.0); MEAN CORPUSCULAR HGB CONC 35.4 % (33.0-36.5); MEAN CORPUSCULAR VOLUME 86.9 FL (78-98); MEAN PLATELET VOLUME 8.4 FL (7.4-10.4); MONOCYTES # (AUTO) 0.7 X10'3 (0-0.9); NEUTROPHILS # (AUTO) 4.8 X10'3 (1.8-7.7); NEUTROPHILS % (AUTO) 58.9 % (42-75); PLATELET COUNT 393 X10'3 (140-440); RED BLOOD COUNT 3.86 X10'6 (4.20-5.60); RED CELL DISTRIBUTION WIDTH 14.9 % (11.5-14.5); WHITE BLOOD COUNT 8.3 X10'3 (4.5-11.0)
[2018-09-06 07:10] VITALS: BP 102/63
[2018-09-06] MEDS: lactose-reduced food (Ensure High Protein) 237ml bottle PO SCH ×3 (08:00→18:21)
[2018-09-06] MEDS: K and/or MAG REPLACEMENT MC SCH (08:00)
[2018-09-06] MEDS: heparin, porcine 5000 units/ml vial SQ SCH ×2 (09:09→19:54)
[2018-09-06] MEDS: pregabalin 25mg capsule PO SCH ×3 (09:10→21:37)
[2018-09-06] MEDS: nicotine 21mg patch - 24 hr TD SCH (09:10)
[2018-09-06] MEDS: lactobacillus rhamnosus 10,000 MMU CELLS/CAPSULE PO SCH ×2 (09:11→19:55)
[2018-09-06] MEDS: aspirin 325mg tablet, delayed-release (Ecotrin) PO SCH (09:11)
[2018-09-06] MEDS: pregabalin 75mg capsule PO SCH ×3 (09:11→21:37)
[2018-09-06] MEDS: docusate sod 100mg capsule PO SCH ×2 (09:12→19:55)
[2018-09-06 11:13] VITALS: BP 112/67
[2018-09-06] MEDS ORDERED: CefTRIAXone 2gm/D5W 50ml 50 ML IV ONE (12:55)
[2018-09-06] MEDS ORDERED: albuterol 2.5 MG/3 ML nebule NEB PRN (15:55)
[2018-09-06] MEDS ORDERED: pregabalin 25mg capsule PO SCH (16:00)
[2018-09-06] MEDS: clopidogrel 75mg tablet PO SCH (16:23)
[2018-09-06] MEDS: cyclobenzaprine 10mg tablet PO SCH (16:23)
[2018-09-06 20:00] VITALS: BP 122/59
[2018-09-06] MEDS: QUEtiapine 25mg tablet PO SCH (21:00)
[2018-09-06] MEDS ORDERED: QUEtiapine 25mg tablet PO SCH (21:00)
[2018-09-06] MEDS: clotrimazole 1% vaginal cream 45gm VG SCH (21:00)
[2018-09-06] MEDS ORDERED: atorvastatin 10mg tablet PO SCH (21:00)
[2018-09-07 00:07] VITALS: BP 88/51
[2018-09-07] MEDS: cyclobenzaprine 10mg tablet PO SCH ×2 (00:19→07:26)
[2018-09-07 05:19] LABS: BASOPHILS # (AUTO) 0.1 X10'3 (0-0.2); EOSINOPHILS # (AUTO) 0.3 X10'3 (0-0.9); EOSINOPHILS % (AUTO) 3.3 % (0-6); HEMOGLOBIN 11.1 g/dl (12.0-16.0); LYMPHOCYTES # (AUTO) 2.3 X10'3 (1.1-4.8); LYMPHOCYTES % (AUTO) 27.6 % (21-51); MEAN CORPUSCULAR HEMOGLOBIN 31.1 PG (27.0-31.0); MEAN CORPUSCULAR HGB CONC 35.7 % (33.0-36.5); MEAN CORPUSCULAR VOLUME 87.1 FL (78-98); MEAN PLATELET VOLUME 8.1 FL (7.4-10.4); MONOCYTES # (AUTO) 0.7 X10'3 (0-0.9); MONOCYTES % (AUTO) 8.6 % (2-12); NEUTROPHILS # (AUTO) 4.9 X10'3 (1.8-7.7); NEUTROPHILS % (AUTO) 59.5 % (42-75); PLATELET COUNT 367 X10'3 (140-440); RED BLOOD COUNT 3.56 X10'6 (4.20-5.60); WHITE BLOOD COUNT 8.3 X10'3 (4.5-11.0)
[2018-09-07 05:26] LABS: ALANINE AMINOTRANSFERASE 53 U/L (12-78); ALBUMIN 2.8 G/DL (3.4-5.0); ALBUMIN/GLOBULIN RATIO 0.6 (1.1-1.5); ALKALINE PHOSPHATASE 80 IU/L (46-116); ANION GAP 4 (8-16); ASPARTATE AMINO TRANSFERASE 24 U/L (10-37); BILIRUBIN,TOTAL 0.2 MG/DL (0.1-1.0); BLOOD UREA NITROGEN 18 MG/DL (7-18); BUN/CREATININE RATIO 23.7 (6.6-38.0); CALCIUM 8.9 MG/DL (8.5-10.1); CHLORIDE 98 MMOL/L (99-107); CREATININE 0.76 MG/DL (0.40-0.90); GLUCOSE 97 MG/DL (70-104); PHOSPHORUS 3.8 MG/DL (2.3-4.5); POTASSIUM 4.2 MMOL/L (3.5-5.1); SODIUM 136 MMOL/L (135-145); TOTAL PROTEIN 7.4 G/DL (6.4-8.2); eGFR 81 ML/MIN
[2018-09-07] MEDS: docusate sod 100mg capsule PO SCH (07:26)
[2018-09-07] MEDS: aspirin 325mg tablet, delayed-release (Ecotrin) PO SCH (07:26)
[2018-09-07] MEDS: pregabalin 75mg capsule PO SCH ×2 (07:26→13:34)
[2018-09-07] MEDS: lactobacillus rhamnosus 10,000 MMU CELLS/CAPSULE PO SCH (07:26)
[2018-09-07] MEDS: clopidogrel 75mg tablet PO SCH (07:26)
[2018-09-07] MEDS: pregabalin 25mg capsule PO SCH ×2 (07:26→13:34)
[2018-09-07] MEDS: nicotine 21mg patch - 24 hr TD SCH (07:29)
[2018-09-07] MEDS: heparin, porcine 5000 units/ml vial SQ SCH (07:30)
[2018-09-07] MEDS: K and/or MAG REPLACEMENT MC SCH (07:42)
[2018-09-07 07:50] VITALS: BP 93/51
[2018-09-07] MEDS ORDERED: loratadine 10mg tablet PO SCH (08:00)
[2018-09-07] MEDS ORDERED: CefTRIAXone 2gm/D5W 50ml 50 ML IV SCH (08:00)
[2018-09-07] MEDS: lactose-reduced food (Ensure High Protein) 237ml bottle PO SCH ×2 (08:33→13:34)
[2018-09-07 11:30] VITALS: BP 106/66
[2018-09-07] MEDS ORDERED: LACT1CAP26 PO (12:18)
[2018-09-07] MEDS ORDERED: COL100C PO (12:18)
[2018-09-07] MEDS ORDERED: NICO-687 TD (12:18)
[2018-09-07] MEDS ORDERED: CLOT45CR8 VG (12:18)
[2018-09-07] MEDS ORDERED: ASPI-1265 PO (12:18)
[2018-09-07] MEDS ORDERED: LACT-228 PO (12:18)
[2018-09-18] MEDS ORDERED: CEFP100T7 PO (11:50)
[2018-09-18] MEDS ORDERED: METR500T4 PO (11:50)
== END 2018-09-07 13:30 | disposition home or self-care (01) | DRG 305 ==
LOC: ER 10:31 → ED HOLD 15:19 → SUR 3N 18:51
PROVIDERS: ADMIT Internal Medicine; ATTEND Internal Medicine
PROC: 0JBR0ZZ Excision of Left Foot Subcutaneous Tissue and Fascia, Open Approach (ICD-10-PCS; 2018-08-24)
PROC: 0JBQ0ZZ Excision of Right Foot Subcutaneous Tissue and Fascia, Open Approach (ICD-10-PCS; 2018-08-24)
PROC: 0Y6M0Z9 Detachment at Right Foot, Partial 1st Ray, Open Approach (ICD-10-PCS; principal; 2018-08-31 10:58)
DX: T87.44 Infection of amputation stump, left lower extremity (principal); G61.0 Guillain-Barre syndrome; L89.894 Pressure ulcer of other site, stage 4; L03.116 Cellulitis of left lower limb; M86.8X8 Other osteomyelitis, other site; I73.9 Peripheral vascular disease, unspecified; I77.1 Stricture of artery; F32.9 Major depressive disorder, single episode, unspecified; F41.9 Anxiety disorder, unspecified; F17.210 Nicotine dependence, cigarettes, uncomplicated; D72.829 Elevated white blood cell count, unspecified; B95.61 Methicillin susceptible Staphylococcus aureus infection as the cause of diseases classified elsewhere; L02.611 Cutaneous abscess of right foot; Z59.0 Homelessness; Z87.442 Personal history of urinary calculi; Z88.8 Allergy status to other drugs, medicaments and biological substances; Z88.0 Allergy status to penicillin; Z99.3 Dependence on wheelchair; Z79.82 Long term (current) use of aspirin; Z71.6 Tobacco abuse counseling; Z89.422 Acquired absence of other left toe(s); Z89.421 Acquired absence of other right toe(s)
CPT/HCPCS: 36415; 71045; 73718; 80048; 80053; 81001; 81025; 83036; 83605; 83735; 84100; 84145; 85025; 85610; 85651; 85730; 86140; 86703; 87040; 87070; 87075; 87077; 87102; 87186; 93005; 93922; 93925; 96361; 96365; 97110; 97116; 97161; 97530; 99285; A6196; A6209; A6212; A6213; A6253; A6266; A6446; A6449; A7000; G0378; J0696; J1644; J2001; J2020; J2175; J2250; J2270; J2704; J3010; J3480; J3490; J7030; J7120

== ENCOUNTER 2018-09-10 09:28 | Day surgery (SDC) | payer MEDICAID ==
[~2018-09-10 09:28] MED LIST: ALBU8HFA PO; ASPI-1265 PO; CLOP75TA15 PO; CLOT45CR8 VG; COL100C PO; LACT-228 PO; LACT1CAP26 PO; LORA10TA7 PO; METH-360 PO; NICO-687 TD; OMEG1CAP2; OMEP-50; PREG100C PO; QUET25TA PO; SIMV10TA2 PO
[2018-09-10] MEDS ORDERED: LIDOcaine/PRILOcaine 5gm cream TP ONE ×2 (11:29→13:00)
[2018-09-10] MEDS ORDERED: LIDOcaine 1%/PF 5ML 10 MG/ML VIAL ONE (11:52)
== END 2018-09-10 13:15 | disposition home or self-care (01) ==
LOC: WOUND CARE 09:28
PROVIDERS: ATTEND Surgery
DX: T87.89 Other complications of amputation stump (principal); L97.511 Non-pressure chronic ulcer of other part of right foot limited to breakdown of skin; L97.521 Non-pressure chronic ulcer of other part of left foot limited to breakdown of skin; Y83.5 Amputation of limb(s) as the cause of abnormal reaction of the patient, or of later complication, without mention of misadventure at the time of the procedure
CPT/HCPCS: 11042; 97597; A6209; A6266; A6446; J2001

== ENCOUNTER 2018-09-14 09:20 | Day surgery (SDC) | payer MEDICAID ==
[~2018-09-14 09:20] MED LIST changes: -NICO-687 TD
== END 2018-09-14 11:48 | disposition home or self-care (01) ==
LOC: WOUND CARE 09:20
PROVIDERS: ATTEND Surgery
DX: T87.89 Other complications of amputation stump (principal); L97.522 Non-pressure chronic ulcer of other part of left foot with fat layer exposed; L97.512 Non-pressure chronic ulcer of other part of right foot with fat layer exposed; Y83.5 Amputation of limb(s) as the cause of abnormal reaction of the patient, or of later complication, without mention of misadventure at the time of the procedure
CPT/HCPCS: 11042; 97597; A6266; A6446; A6449

== ENCOUNTER 2018-09-23 08:37 | Day surgery (SDC) | payer MEDICAID ==
[~2018-09-23 08:37] MED LIST changes: +CEFP100T7 PO; -CLOT45CR8 VG; -COL100C PO; +METR500T4 PO
== END 2018-09-23 11:01 | disposition home or self-care (01) ==
LOC: WOUND CARE 08:37
PROVIDERS: ATTEND Surgery
DX: T87.89 Other complications of amputation stump (principal); L97.522 Non-pressure chronic ulcer of other part of left foot with fat layer exposed; L97.512 Non-pressure chronic ulcer of other part of right foot with fat layer exposed; E78.5 Hyperlipidemia, unspecified; E66.9 Obesity, unspecified; G62.9 Polyneuropathy, unspecified; F41.9 Anxiety disorder, unspecified; F32.9 Major depressive disorder, single episode, unspecified; F17.210 Nicotine dependence, cigarettes, uncomplicated; Z68.30 Body mass index [BMI] 30.0-30.9, adult; Z79.02 Long term (current) use of antithrombotics/antiplatelets; Z79.82 Long term (current) use of aspirin; Z79.899 Other long term (current) drug therapy; Z87.440 Personal history of urinary (tract) infections; Z87.442 Personal history of urinary calculi; Y83.5 Amputation of limb(s) as the cause of abnormal reaction of the patient, or of later complication, without mention of misadventure at the time of the procedure
CPT/HCPCS: 11042; 97597; A6209; A6266; A6446

== ENCOUNTER 2018-09-25 08:57 | Day surgery (SDC) | payer MEDICAID ==
[~2018-09-25 08:57] MED LIST changes: +CLOT45CR8 VG; +COL100C PO; +NIAC500T23; +NICO-687 TD
== END 2018-09-25 10:55 | disposition home or self-care (01) ==
LOC: WOUND CARE 08:57
PROVIDERS: ATTEND Surgery
DX: T87.89 Other complications of amputation stump (principal); L97.522 Non-pressure chronic ulcer of other part of left foot with fat layer exposed; L97.514 Non-pressure chronic ulcer of other part of right foot with necrosis of bone; E78.5 Hyperlipidemia, unspecified; E66.9 Obesity, unspecified; G62.9 Polyneuropathy, unspecified; F41.9 Anxiety disorder, unspecified; F32.9 Major depressive disorder, single episode, unspecified; F17.210 Nicotine dependence, cigarettes, uncomplicated; Z68.30 Body mass index [BMI] 30.0-30.9, adult; Z79.02 Long term (current) use of antithrombotics/antiplatelets; Z79.82 Long term (current) use of aspirin; Z79.899 Other long term (current) drug therapy; Z87.440 Personal history of urinary (tract) infections; Z87.442 Personal history of urinary calculi; Y83.5 Amputation of limb(s) as the cause of abnormal reaction of the patient, or of later complication, without mention of misadventure at the time of the procedure
CPT/HCPCS: 11042; 97597; A6209; A6266

== ENCOUNTER 2018-09-28 08:37 | Outpatient (CLI) | payer MEDICAID ==
[~2018-09-28 08:37] MED LIST changes: -CLOT45CR8 VG; -COL100C PO; +LIDOcaine/PRILOcaine 5gm cream TP ONE; -NIAC500T23; -NICO-687 TD
== END 2018-09-28 11:11 | disposition home or self-care (01) ==
LOC: WOUND CARE 08:37 → EDSTATUS 09:00 → WOUND CARE 11:11
PROVIDERS: ATTEND Surgery
DX: T87.89 Other complications of amputation stump (principal); L97.522 Non-pressure chronic ulcer of other part of left foot with fat layer exposed; L97.514 Non-pressure chronic ulcer of other part of right foot with necrosis of bone; E78.5 Hyperlipidemia, unspecified; E66.9 Obesity, unspecified; G62.9 Polyneuropathy, unspecified; F41.9 Anxiety disorder, unspecified; F32.9 Major depressive disorder, single episode, unspecified; F17.210 Nicotine dependence, cigarettes, uncomplicated; Z68.30 Body mass index [BMI] 30.0-30.9, adult; Z79.02 Long term (current) use of antithrombotics/antiplatelets; Z79.82 Long term (current) use of aspirin; Z79.899 Other long term (current) drug therapy; Z87.440 Personal history of urinary (tract) infections; Z87.442 Personal history of urinary calculi; Y83.5 Amputation of limb(s) as the cause of abnormal reaction of the patient, or of later complication, without mention of misadventure at the time of the procedure
CPT/HCPCS: 99211; A6209; A6266; A6446

== ENCOUNTER 2018-10-05 08:45 | Day surgery (SDC) | payer MEDICAID ==
[2018-10-05] MEDS ORDERED: LIDOcaine/PRILOcaine 5gm cream TP ONE (11:08)
== END 2018-10-05 12:15 | disposition home or self-care (01) ==
LOC: WOUND CARE 08:45
PROVIDERS: ATTEND Surgery
DX: T87.89 Other complications of amputation stump (principal); L97.522 Non-pressure chronic ulcer of other part of left foot with fat layer exposed; L97.514 Non-pressure chronic ulcer of other part of right foot with necrosis of bone; E78.5 Hyperlipidemia, unspecified; E66.9 Obesity, unspecified; G62.9 Polyneuropathy, unspecified; F41.9 Anxiety disorder, unspecified; F32.9 Major depressive disorder, single episode, unspecified; F17.210 Nicotine dependence, cigarettes, uncomplicated; Z68.30 Body mass index [BMI] 30.0-30.9, adult; Z79.02 Long term (current) use of antithrombotics/antiplatelets; Z79.82 Long term (current) use of aspirin; Z79.899 Other long term (current) drug therapy; Z87.440 Personal history of urinary (tract) infections; Z87.442 Personal history of urinary calculi; Y83.5 Amputation of limb(s) as the cause of abnormal reaction of the patient, or of later complication, without mention of misadventure at the time of the procedure
CPT/HCPCS: A6021; A6206; A6212

== ENCOUNTER 2018-10-14 09:57 | Day surgery (SDC) | payer MEDICAID ==
[~2018-10-14 09:57] MED LIST changes: -ASPI-1265 PO; -LIDOcaine/PRILOcaine 5gm cream TP ONE; -METR500T4 PO
== END 2018-10-14 11:55 | disposition home or self-care (01) ==
LOC: WOUND CARE 09:57
PROVIDERS: ATTEND Surgery
DX: T81.89XD Other complications of procedures, not elsewhere classified, subsequent encounter (principal); L97.522 Non-pressure chronic ulcer of other part of left foot with fat layer exposed; L97.514 Non-pressure chronic ulcer of other part of right foot with necrosis of bone; E78.5 Hyperlipidemia, unspecified; E66.9 Obesity, unspecified; G62.9 Polyneuropathy, unspecified; F41.9 Anxiety disorder, unspecified; F32.9 Major depressive disorder, single episode, unspecified; F17.210 Nicotine dependence, cigarettes, uncomplicated; Z68.30 Body mass index [BMI] 30.0-30.9, adult; Z79.02 Long term (current) use of antithrombotics/antiplatelets; Z79.82 Long term (current) use of aspirin; Z79.899 Other long term (current) drug therapy; Z87.440 Personal history of urinary (tract) infections; Z87.442 Personal history of urinary calculi; Z89.422 Acquired absence of other left toe(s); Z89.421 Acquired absence of other right toe(s); Y83.8 Other surgical procedures as the cause of abnormal reaction of the patient, or of later complication, without mention of misadventure at the time of the procedure
CPT/HCPCS: 97597; A6209; A6206; A6446

== ENCOUNTER 2018-10-26 09:20 | Day surgery (SDC) | payer MEDICAID ==
[2018-10-26] MEDS ORDERED: LEVO750T21 PO (15:25)
== END 2018-10-26 12:22 | disposition home or self-care (01) ==
LOC: WOUND CARE 09:20
PROVIDERS: ATTEND Surgery
DX: T81.89XD Other complications of procedures, not elsewhere classified, subsequent encounter (principal); L97.522 Non-pressure chronic ulcer of other part of left foot with fat layer exposed; L97.514 Non-pressure chronic ulcer of other part of right foot with necrosis of bone; E78.5 Hyperlipidemia, unspecified; E66.9 Obesity, unspecified; G62.9 Polyneuropathy, unspecified; F41.9 Anxiety disorder, unspecified; F32.9 Major depressive disorder, single episode, unspecified; F17.210 Nicotine dependence, cigarettes, uncomplicated; Z68.30 Body mass index [BMI] 30.0-30.9, adult; Z79.02 Long term (current) use of antithrombotics/antiplatelets; Z79.82 Long term (current) use of aspirin; Z79.899 Other long term (current) drug therapy; Z87.440 Personal history of urinary (tract) infections; Z87.442 Personal history of urinary calculi; Z89.422 Acquired absence of other left toe(s); Z89.421 Acquired absence of other right toe(s); Y83.8 Other surgical procedures as the cause of abnormal reaction of the patient, or of later complication, without mention of misadventure at the time of the procedure
CPT/HCPCS: 11042; 87070; 87075; 87102; 87186; 97597; A6209; A6266; 87077; A6021; A6206; A6446

== ENCOUNTER 2018-10-29 09:27 | Outpatient (CLI) | payer MEDICAID ==
[~2018-10-29 09:27] MED LIST changes: +LEVO750T21 PO
== END 2018-10-29 11:58 | disposition home or self-care (01) ==
LOC: WOUND CARE 09:27 → EDSTATUS 10:00 → WOUND CARE 11:58
PROVIDERS: ATTEND Surgery
DX: T81.89XD Other complications of procedures, not elsewhere classified, subsequent encounter (principal); L97.522 Non-pressure chronic ulcer of other part of left foot with fat layer exposed; L97.514 Non-pressure chronic ulcer of other part of right foot with necrosis of bone; E78.5 Hyperlipidemia, unspecified; E66.9 Obesity, unspecified; G62.9 Polyneuropathy, unspecified; F41.9 Anxiety disorder, unspecified; F32.9 Major depressive disorder, single episode, unspecified; F17.210 Nicotine dependence, cigarettes, uncomplicated; Z68.30 Body mass index [BMI] 30.0-30.9, adult; Z79.02 Long term (current) use of antithrombotics/antiplatelets; Z79.82 Long term (current) use of aspirin; Z79.899 Other long term (current) drug therapy; Z87.440 Personal history of urinary (tract) infections; Z87.442 Personal history of urinary calculi; Z89.422 Acquired absence of other left toe(s); Z89.421 Acquired absence of other right toe(s); Y83.8 Other surgical procedures as the cause of abnormal reaction of the patient, or of later complication, without mention of misadventure at the time of the procedure
CPT/HCPCS: 99215; A6209; A6266; A6021; A6206; A6446

== ENCOUNTER 2018-11-02 07:22 | Emergency (ER) | payer MEDICAID ==
[~2018-11-02] VITALS: Ht 177.8 cm; Wt 90.7 kg
[2018-11-02] MEDS ORDERED: normal saline 1000ML IV soln IV ONE (07:55)
[2018-11-02] MEDS ORDERED: levoFLOXACIN-Levaquin 750MG/D5 150 ML IV ONE (07:55)
[2018-11-02] MEDS ORDERED: normal saline 1000ML IV soln IVB ONE (08:35)
[2018-11-02 08:41] LABS: BASOPHILS # (AUTO) 0.1 X10'3 (0-0.2); BASOPHILS % (AUTO) 0.7 % (0-1); EOSINOPHILS % (AUTO) 0.3 % (0-6); HEMATOCRIT 32.9 % (35.0-45.0); LYMPHOCYTES # (AUTO) 1.1 X10'3 (1.1-4.8); LYMPHOCYTES % (AUTO) 10.1 % (21-51); MEAN CORPUSCULAR HEMOGLOBIN 27.3 PG (27.0-31.0); MEAN CORPUSCULAR HGB CONC 33.4 % (33.0-36.5); MEAN CORPUSCULAR VOLUME 81.7 FL (78-98); MEAN PLATELET VOLUME 7.6 FL (7.4-10.4); MONOCYTES # (AUTO) 0.8 X10'3 (0-0.9); MONOCYTES % (AUTO) 7.6 % (2-12); NEUTROPHILS # (AUTO) 8.9 X10'3 (1.8-7.7); NEUTROPHILS % (AUTO) 81.3 % (42-75); PLATELET COUNT 610 X10'3 (140-440); RED BLOOD COUNT 4.03 X10'6 (4.20-5.60); RED CELL DISTRIBUTION WIDTH 16.1 % (11.5-14.5)
[2018-11-02 09:05] LABS: ALANINE AMINOTRANSFERASE 21 U/L (12-78); ALBUMIN/GLOBULIN RATIO 0.6 (1.1-1.5); ALKALINE PHOSPHATASE 114 IU/L (46-116); ANION GAP 11 (8-16); ASPARTATE AMINO TRANSFERASE 17 U/L (10-37); BILIRUBIN,TOTAL 0.4 MG/DL (0.1-1.0); BLOOD UREA NITROGEN 5 MG/DL (7-18); BUN/CREATININE RATIO 5.3 (6.6-38.0); CALCIUM 9.3 MG/DL (8.5-10.1); CHLORIDE 94 MMOL/L (99-107); CREATININE 0.94 MG/DL (0.40-0.90); GLUCOSE 114 MG/DL (70-104); MAGNESIUM 1.9 MG/DL (1.5-2.4); SODIUM 131 MMOL/L (135-145); TOTAL CARBON DIOXIDE 26.2 MMOL/L (24-32); TOTAL PROTEIN 8.3 G/DL (6.4-8.2); eGFR 63 ML/MIN
[2018-11-02 09:21] LABS: CLARITY,URINE CLEAR (Clear); COLOR,URINE YELLOW (Yellow); GLUCOSE, URINE NEGATIVE (Neg); KETONES,URINE NEGATIVE (Neg); LEUKOCYTE ESTERASE ,URINE NEGATIVE (Neg); NITRITES, URINE NEGATIVE (Neg); OCCULT BLOOD,URINE NEGATIVE (Neg); PH,URINE 6.5 (4.8-8.0); PROTEIN,URINE NEGATIVE (Neg); UROBILINOGEN,URINE 0.2 E.U/dL (0.2-1.0)
[2018-11-02 09:22] LABS: UA COLLECTION TYPE CLN CATCH MIDSTREAM
[2018-11-02] MEDS ORDERED: HYDR-4353 PO (09:44)
[2018-11-02] MEDS ORDERED: LEVO750T21 PO (09:44)
[2018-11-02 10:21] VITALS: BP 129/67
== END 2018-11-02 10:23 | disposition home or self-care (01) ==
LOC: ER 07:23
DX: L03.116 Cellulitis of left lower limb (principal); T81.49XA Infection following a procedure, other surgical site, initial encounter; Z87.891 Personal history of nicotine dependence; Z86.718 Personal history of other venous thrombosis and embolism; Z98.890 Other specified postprocedural states; Z88.0 Allergy status to penicillin; Z88.2 Allergy status to sulfonamides; Z88.1 Allergy status to other antibiotic agents; Z79.899 Other long term (current) drug therapy; Z89.432 Acquired absence of left foot; Y92.9 Unspecified place or not applicable
CPT/HCPCS: 36415; 71045; 80053; 81003; 83605; 83735; 84145; 85025; 87040; 93005; 96365; 99284; J1956; J7030

== ENCOUNTER 2018-11-20 08:49 | Day surgery (SDC) | payer MEDICAID ==
[~2018-11-20 08:49] MED LIST changes: +HYDR-4353 PO
[2018-11-20] MEDS ORDERED: LIDOcaine 2% 5ml jelly MM ONE (14:10)
== END 2018-11-20 10:19 | disposition home or self-care (01) ==
LOC: WOUND CARE 08:49
PROVIDERS: ATTEND Surgery
DX: T81.89XD Other complications of procedures, not elsewhere classified, subsequent encounter (principal); L97.522 Non-pressure chronic ulcer of other part of left foot with fat layer exposed; L97.514 Non-pressure chronic ulcer of other part of right foot with necrosis of bone; E78.5 Hyperlipidemia, unspecified; E66.9 Obesity, unspecified; G62.9 Polyneuropathy, unspecified; F41.9 Anxiety disorder, unspecified; F32.9 Major depressive disorder, single episode, unspecified; F17.210 Nicotine dependence, cigarettes, uncomplicated; Z68.30 Body mass index [BMI] 30.0-30.9, adult; Z79.02 Long term (current) use of antithrombotics/antiplatelets; Z79.82 Long term (current) use of aspirin; Z79.899 Other long term (current) drug therapy; Z87.440 Personal history of urinary (tract) infections; Z87.442 Personal history of urinary calculi; Z89.422 Acquired absence of other left toe(s); Z89.421 Acquired absence of other right toe(s); Y83.8 Other surgical procedures as the cause of abnormal reaction of the patient, or of later complication, without mention of misadventure at the time of the procedure
CPT/HCPCS: 11042; A6209; A6021; A6206; A6446

== ENCOUNTER 2018-11-27 08:56 | Day surgery (SDC) | payer MEDICAID ==
--- NOTE | 2018-11-27 13:56 | NUR ---
0900 Patient brought safely into [facility] via W/C by [employer]. Patient admitted to outpatient wound care clinic for follow-up visit with physician. Dressing removed, wound cleansed. Patient assessed for changes in conditions, medications and medical history. Patient showed no s/s of distress at time of assessment. 1030 at bedside accompanied by RN. Wounds assessed, time out performed and debridement done today as detailed in the physician progress/procedure note. Plan of care discussed with patient. Primary Dressings placed by MD. Dressings placed as ordered. Patient instructed on the signs and symptoms of infection and to call the Wound Center if any occur or to go to the ED if we are closed: Increased pain in wound Increase in drainage from the wound Redness in the skin surrounding the wound Bleeding from the wound Temperature of 101 or greater Patient instructed that the weight of their body puts a large amount of pressure on their wounds. This pressure keeps the new tissue from growing and inhibits new blood vessels from forming. Explained that, if they continue to bear weight on a body part that has a wound, the time it takes to heal the wound increases, the wound may get worse or the wound may not heal at all. Patient verbalized understanding of all discharge instructions and plan of care. Patient ambulated independently out to [facility] and is in stable condition with no sign or symptom of distress at time of discharge.
== END 2018-11-27 11:03 | disposition home or self-care (01) ==
LOC: WOUND CARE 08:56
PROVIDERS: ATTEND Surgery
DX: T81.89XD Other complications of procedures, not elsewhere classified, subsequent encounter (principal); L97.522 Non-pressure chronic ulcer of other part of left foot with fat layer exposed; E78.5 Hyperlipidemia, unspecified; E66.9 Obesity, unspecified; G62.9 Polyneuropathy, unspecified; F41.9 Anxiety disorder, unspecified; F32.9 Major depressive disorder, single episode, unspecified; F17.210 Nicotine dependence, cigarettes, uncomplicated; Z68.30 Body mass index [BMI] 30.0-30.9, adult; Z79.02 Long term (current) use of antithrombotics/antiplatelets; Z79.82 Long term (current) use of aspirin; Z79.899 Other long term (current) drug therapy; Z87.440 Personal history of urinary (tract) infections; Z87.442 Personal history of urinary calculi; Z89.422 Acquired absence of other left toe(s); Z89.421 Acquired absence of other right toe(s); Y83.8 Other surgical procedures as the cause of abnormal reaction of the patient, or of later complication, without mention of misadventure at the time of the procedure
CPT/HCPCS: 11042; A6209; A6222; A6021; A6446

== ENCOUNTER 2018-12-09 09:54 | Day surgery (SDC) | payer MEDICAID ==
[~2018-12-09 09:54] MED LIST changes: -HYDR-4353 PO
--- NOTE | 2018-12-09 12:14 | NUR ---
Patient ambulated independently from [facility] and was admitted to outpatient wound care for physician visit. Dressing removed, wound cleansed and lidocaine applied per order. Patient assessed for changes in conditions, medications and medical history. Dr. Carrillo at bedside accompanied by RN. Wound assessed, time out performed by MD/RN. Wound debrided as detailed in the physician progress/procedure note. Plan of care discussed with patient. Dressings placed per MD orders. Patient instructed on the signs and symptoms of infection and to call the Wound Center if any occur or to go to the ED if we are closed: Increased pain in wound Increase in drainage from the wound Redness in the skin surrounding the wound Bleeding from the wound Temperature of 101 or greater Patient instructed that the weight of their body puts a large amount of pressure on their wounds. This pressure keeps the new tissue from growing and inhibits new blood vessels from forming. Explained that, if they continue to bear weight on a body part that has a wound, the time it takes to heal the wound increases, the wound may get worse or the wound may not heal at all. Patient verbalized understanding of all discharge instructions and plan of care and ambulated independently out to [facility] in stable condition with no sign or symptom of distress at time of discharge. Addendum: 12/09/18 at 1215 by Ana Francisco RN Amended: Links added.
[2018-12-09] MEDS ORDERED: LIDOcaine 2% 5ml jelly MM ONE (12:15)
== END 2018-12-09 10:56 | disposition home or self-care (01) ==
LOC: WOUND CARE 09:54
PROVIDERS: ATTEND Surgery
DX: T81.89XD Other complications of procedures, not elsewhere classified, subsequent encounter (principal); L97.522 Non-pressure chronic ulcer of other part of left foot with fat layer exposed; E78.5 Hyperlipidemia, unspecified; G62.9 Polyneuropathy, unspecified; E66.9 Obesity, unspecified; F41.9 Anxiety disorder, unspecified; F32.9 Major depressive disorder, single episode, unspecified; F17.210 Nicotine dependence, cigarettes, uncomplicated; Z68.30 Body mass index [BMI] 30.0-30.9, adult; Z79.02 Long term (current) use of antithrombotics/antiplatelets; Z79.82 Long term (current) use of aspirin; Z79.899 Other long term (current) drug therapy; Z87.440 Personal history of urinary (tract) infections; Z87.442 Personal history of urinary calculi; Z89.422 Acquired absence of other left toe(s); Z89.421 Acquired absence of other right toe(s); Y83.8 Other surgical procedures as the cause of abnormal reaction of the patient, or of later complication, without mention of misadventure at the time of the procedure
CPT/HCPCS: 11042; A6209; A6021; A6206; A6446

== ENCOUNTER 2021-01-23 06:46 | Inpatient (IN) | payer MEDICAID ==
[~2021-01-23] VITALS: Ht 175.3 cm; Wt 109.1 kg
[~2021-01-23 06:46] MED LIST changes: -OMEG1CAP2; +OMEG1CAP2 PO; -OMEP-50; +OMEP-50 PO
[2021-01-23] MEDS ORDERED: dexamethasone sod phosphate 10mg/ml inj IV STA (06:53)
[2021-01-23] MEDS ORDERED: normal saline 1000ML IV soln IV ONE (07:00)
--- NOTE | 2021-01-23 08:37 | NUR ---
Pt's daughter called seeking update, which was provided after pt gave verbal consent. Addendum: 01/23/21 at 0838 by LETICIA Donna Ashford, daughter (&CG),
[2021-01-23 08:38] LABS: ABG BASE EXCESS 2.8 mmol/L (-2.0-2.0); ABG OXYGEN SATURATION 95.7 % (94-97); ABG PCO2 (T) 35.5 mmHg (32.0-45.0); ABG PO2 (T) 79.2 mmHg (75.0-100.0); ALLEN'S TEST POSITIVE; FCOHb 1.5 % (0.0-3.9); FLOW 5 L/min; FMetHb 0.4 % (0.0-1.5); FO2Hb 93.9 % (94-97); TOTAL HEMOGLOBIN 12.7 G/dl (12.0-16.0)
[2021-01-23 08:54] LABS: ALANINE AMINOTRANSFERASE 27 U/L (12-78); ALBUMIN 2.2 G/DL (3.4-5.0); ALBUMIN/GLOBULIN RATIO 0.4 (1.1-1.5); ALKALINE PHOSPHATASE 74 IU/L (46-116); ANION GAP 8 (8-16); ASPARTATE AMINO TRANSFERASE 52 U/L (10-37); BILIRUBIN,TOTAL 0.6 MG/DL (0.1-1.0); BLOOD UREA NITROGEN 24 MG/DL (7-18); BUN/CREATININE RATIO 15.8 (6.6-38.0); C-REACTIVE PROTEIN 21.48 MG/DL (0.0-0.5); CALCIUM 8.6 MG/DL (8.5-10.1); CHLORIDE 92 MMOL/L (99-107); CREATININE 1.52 MG/DL (0.40-0.90); FERRITIN 411 NG/ML (8-252); GLUCOSE 111 MG/DL (70-104); LACTATE DEHYDROGENASE 224 U/L (81-234); SODIUM 130 MMOL/L (135-145); TOTAL CARBON DIOXIDE 29.6 MMOL/L (24-32); TOTAL PROTEIN 7.1 G/DL (6.4-8.2); eGFR 36 ML/MIN
[2021-01-23 08:55] LABS: POTASSIUM 2.4 MMOL/L (3.5-5.1)
[2021-01-23] MEDS ORDERED: potassium Cl 20 mEq SR tablet PO ONE (09:10)
[2021-01-23 09:24] LABS: BASOPHILS % (AUTO) 0.2 % (0-1); EOSINOPHILS % (AUTO) 0.3 % (0-6); HEMATOCRIT 32.4 % (35.0-45.0); HEMOGLOBIN 10.8 g/dl (12.0-16.0); LYMPHOCYTES % (AUTO) 6.2 % (21-51); MEAN CORPUSCULAR HEMOGLOBIN 28.5 PG (27.0-31.0); MEAN CORPUSCULAR HGB CONC 33.4 g/dL (33.0-36.5); MEAN CORPUSCULAR VOLUME 85.5 FL (78-98); MEAN PLATELET VOLUME 8.3 FL (7.4-10.4); MONOCYTES % (AUTO) 5.9 % (2-12); NEUTROPHILS # (AUTO) 14.4 X10'3 (1.8-7.7); NEUTROPHILS % (AUTO) 87.4 % (42-75); PLATELET COUNT 253 X10'3 (140-440); RED BLOOD COUNT 3.79 X10'6 (4.20-5.60); RED CELL DISTRIBUTION WIDTH 16.2 % (11.5-14.5); WHITE BLOOD COUNT 16.5 X10'3 (4.5-11.0)
[2021-01-23 09:45] LABS: D-DIMER 5.18 MG/L FEU (0-0.50)
[2021-01-23] MEDS: magnesium 2GM in 50ml NS 50 ML IV SCH ×2 (09:45→10:49)
[2021-01-23] MEDS: potassium Cl 10 mEq/100mL bag IV SCH ×2 (09:45→11:02)
[2021-01-23 09:57] LABS: TOTAL CELLS COUNTED 100
[2021-01-23 09:59] LABS: TOXIC VACUOLATION 1+
[2021-01-23 10:00] LABS: TOXIC GRANULATION 2+
[2021-01-23 10:02] LABS: PLATELET ESTIMATE NORMAL
[2021-01-23 10:04] LABS: ANISOCYTOSIS 1+
[2021-01-23 10:06] LABS: LARGE PLATELETS FEW
[2021-01-23 10:10] LABS: CLARITY,URINE SLIGHTLY CLOUDY (Clear); COLOR,URINE YELLOW (Yellow); GLUCOSE, URINE NEGATIVE (Neg); KETONES,URINE NEGATIVE (Neg); LEUKOCYTE ESTERASE ,URINE NEGATIVE (Neg); OCCULT BLOOD,URINE SMALL (Neg); PROTEIN,URINE TRACE mg/dl (Neg); UROBILINOGEN,URINE 0.2 E.U/dL (0.2-1.0)
[2021-01-23 10:15] LABS: UA COLLECTION TYPE FOLEY CATH
[2021-01-23 10:16] LABS: NITRITES, URINE NEGATIVE (Neg)
[2021-01-23 10:18] LABS: BACTERIA,URINE 4+ /HPF (Neg); MUCUS STRANDS NONE SEEN /LPF (Neg); RBC,URINE 0-2 /HPF (0-2); SQUAMOUS EPITHELIAL CELL,UR FEW /LPF (FEW); WBC,URINE 50-100 /HPF (0-4)
[2021-01-23] MEDS ORDERED: enoxaparin 100mg/ml syringe SUBCUT ONE (10:20)
[2021-01-23] MEDS ORDERED: CefTRIAXone 2gm/D5W 50ml BAG 50 ML IV ONE (10:20)
[2021-01-23] MEDS ORDERED: magnesium hydroxide 30ml (MOM) UD suspension PO PRN (11:30)
[2021-01-23] MEDS ORDERED: ondansetron/PF 4mg/2ml inj IV PRN (11:30)
[2021-01-23] MEDS ORDERED: acetaminophen 325mg tablet PO PRN (11:30)
[2021-01-23] MEDS ORDERED: mag hydrox/Alum hydrox/simeth 30ml oral suspension PO PRN (11:30)
[2021-01-23] MEDS ORDERED: iohexol 300mg/ml 100ml inj. ONE (11:57)
[2021-01-23] MEDS ORDERED: iohexol 350MG/ML 100ml bottle IV ONE (12:00)
[2021-01-23] MEDS ORDERED: SIMV-45 PO (12:18)
[2021-01-23] MEDS ORDERED: PREG150C46 PO (12:18)
[2021-01-23] MEDS ORDERED: BACL20TA2 PO (12:18)
[2021-01-23] MEDS ORDERED: LISI1TAB29 PO (12:18)
[2021-01-23] MEDS ORDERED: METF-950 PO (12:18)
[2021-01-23] MEDS ORDERED: METH-798 PO (12:18)
[2021-01-23] MEDS ORDERED: QUET200T30 PO (12:28)
[2021-01-23] MEDS: normal saline 1000ml 1,000 ML IV SCH ×3 (13:18→23:05)
[2021-01-23] MEDS ORDERED: albuterol 2.5 MG/3 ML nebule NEB PRN (14:00)
[2021-01-23] MEDS ORDERED: ALBUTEROL INHALER 1 PUFF/90 MCG INHALER IH PRN (14:00)
[2021-01-23] MEDS: dexamethasone inj 6 MG in normal saline 50ml IV soln 50 ML IV SCH ×2 (14:46→21:37)
[2021-01-23] MEDS: ceFAZolin/D5W- 1GM premix 50 ML IV SCH ×2 (17:29→23:06)
--- NOTE | 2021-01-23 19:46 | NUR ---
Received report from STORY TELLERGARIMA James. Patient to follow shortly.
--- NOTE | 2021-01-23 20:00 | NUR ---
Patient arrived to floor from Er . Charge nurse settled patient in.
[2021-01-23] MEDS ORDERED: dextrose ORAL solution 15 GM/59 ML bottle PO PRN ×2 (21:25)
[2021-01-23] MEDS ORDERED: glucagon, human recombinant 1mg kit SUBCUT PRN (21:25)
[2021-01-23] MEDS ORDERED: MESSAGE TO PHARMACY PO ONE (21:25)
[2021-01-23] MEDS ORDERED: dextrose 50%-water 50ml dispensing syringe IV PRN ×2 (21:25)
[2021-01-23] MEDS: enoxaparin 80mg/0.8ml syringe SUBCUT SCH (21:46)
[2021-01-23] MEDS: enoxaparin 30mg/0.3ml syringe SUBCUT SCH (21:47)
[2021-01-23] MEDS: quetiapine 100mg tablet PO SCH (21:48)
[2021-01-23] MEDS: pregabalin 75mg capsule PO SCH (21:48)
[2021-01-23 23:21] VITALS: BP 122/65
[2021-01-24] MEDS: HYDROcodone/acetaminophen 5mg/325mg tablet PO PRN ×5 (00:18→17:38)
[2021-01-24 04:00] VITALS: BP 127/61
[2021-01-24 06:26] LABS: ALANINE AMINOTRANSFERASE 29 U/L (12-78); ALBUMIN 2.1 G/DL (3.4-5.0); ALBUMIN/GLOBULIN RATIO 0.4 (1.1-1.5); ALKALINE PHOSPHATASE 79 IU/L (46-116); ANION GAP 9 (8-16); ASPARTATE AMINO TRANSFERASE 58 U/L (10-37); BILIRUBIN,TOTAL 0.4 MG/DL (0.1-1.0); BLOOD UREA NITROGEN 18 MG/DL (7-18); BUN/CREATININE RATIO 21.4 (6.6-38.0); CALCIUM 8.5 MG/DL (8.5-10.1); CHLORIDE 95 MMOL/L (99-107); CREATININE 0.84 MG/DL (0.40-0.90); GLUCOSE 147 MG/DL (70-104); SODIUM 133 MMOL/L (135-145); TOTAL CARBON DIOXIDE 28.8 MMOL/L (24-32); TOTAL PROTEIN 7.2 G/DL (6.4-8.2); eGFR 71 ML/MIN
[2021-01-24 06:28] LABS: POTASSIUM 2.9 MMOL/L (3.5-5.1)
[2021-01-24] MEDS ORDERED: magnesium 2GM in 50ml NS 50 ML IV PRN (06:30)
[2021-01-24] MEDS ORDERED: magnesium 4gm in 100ml NS 100 ML IV PRN (06:30)
[2021-01-24] MEDS ORDERED: potassium Cl 20 mEq SR tablet PO PRN (06:30)
[2021-01-24] MEDS ORDERED: potassium CL 10mEq/100ml bag 100 ML IV PRN (06:30)
[2021-01-24] MEDS ORDERED: potassium Cl 20mEq/100mL bag 100 ML IV PRN (06:30)
[2021-01-24] MEDS ORDERED: potassium Cl 40MEQ/1/2NS 520ml 520 ML IV PRN (06:30)
[2021-01-24 06:35] LABS: BASOPHILS % (AUTO) 0.1 % (0-1); EOSINOPHILS % (AUTO) 0 % (0-6); HEMATOCRIT 32.8 % (35.0-45.0); LYMPHOCYTES # (AUTO) 1.1 X10'3 (1.1-4.8); LYMPHOCYTES % (AUTO) 5.3 % (21-51); MEAN CORPUSCULAR HEMOGLOBIN 28.4 PG (27.0-31.0); MEAN CORPUSCULAR HGB CONC 33.6 g/dL (33.0-36.5); MEAN CORPUSCULAR VOLUME 84.6 FL (78-98); MEAN PLATELET VOLUME 8.8 FL (7.4-10.4); MONOCYTES # (AUTO) 0.8 X10'3 (0-0.9); MONOCYTES % (AUTO) 3.8 % (2-12); NEUTROPHILS % (AUTO) 90.8 % (42-75); PLATELET COUNT 312 X10'3 (140-440); RED BLOOD COUNT 3.88 X10'6 (4.20-5.60); RED CELL DISTRIBUTION WIDTH 15.9 % (11.5-14.5); WHITE BLOOD COUNT 19.9 X10'3 (4.5-11.0)
--- NOTE | 2021-01-24 06:53 | NUR ---
Patient in room PCU 3019. I have received report from GARIMA Velez and had the opportunity to ask questions and assume patient care.
--- NOTE | 2021-01-24 06:53 | NUR ---
5Problems reprioritized. Patient report given, questions answered & plan of care reviewed with Leti PAINTING.
[2021-01-24 07:00] VITALS: BP 132/75
[2021-01-24 07:55] LABS: TOTAL CELLS COUNTED 100
[2021-01-24 07:56] LABS: ANISOCYTOSIS 1+; PLATELET ESTIMATE NORMAL
[2021-01-24 07:57] LABS: TOXIC GRANULATION 2+
--- NOTE | 2021-01-24 09:03 | NUR ---
Paged Dr Tovar regarding positive blood cultures PAGER ID: [phone] MESSAGE: Seble Dowling Rm 3019 Gram Positive cocci & clusters blood culture from central line at 22.40hrs. Please advise. Thank you Nasima Vargas [phone]
[2021-01-24] MEDS: dexamethasone inj 6 MG in normal saline 50ml IV soln 50 ML IV SCH (09:18)
[2021-01-24] MEDS: ceFAZolin/D5W- 1GM premix 50 ML IV SCH (09:19)
[2021-01-24] MEDS: pregabalin 75mg capsule PO SCH ×3 (09:19→22:05)
[2021-01-24] MEDS: lisinopril 20mg tablet PO SCH (09:21)
[2021-01-24] MEDS: HYDROchlorothiazide 25mg tablet PO SCH (09:22)
[2021-01-24] MEDS: atorvastatin 20mg tablet PO SCH (09:22)
[2021-01-24] MEDS: loratadine 10mg tablet PO SCH (09:22)
[2021-01-24] MEDS: clopidogrel 75mg tablet PO SCH (09:22)
[2021-01-24] MEDS: potassium Cl 20 mEq SR tablet PO PRN ×3 (09:23→17:37)
[2021-01-24] MEDS: enoxaparin 80mg/0.8ml syringe SUBCUT SCH (09:24)
[2021-01-24] MEDS: enoxaparin 30mg/0.3ml syringe SUBCUT SCH ×2 (09:24→22:06)
[2021-01-24] MEDS: pantoprazole 40mg Tablet.DR PO SCH (09:30)
[2021-01-24] MEDS ORDERED: linezolid 600mg/300ml PREMIX 300 ML IV SCH (10:05)
--- NOTE | 2021-01-24 10:07 | NUR ---
Relieving primary nurse. Orders for zyvox put in per Dr. Tovar and D/C vancomycin per Dr. Tovar.
[2021-01-24 11:00] VITALS: BP 149/70
[2021-01-24] MEDS ORDERED: albuterol 2.5 MG/3 ML nebule NEB PRN (13:05)
[2021-01-24] MEDS: CefTRIAXone 2gm/D5W 50ml BAG 50 ML IV SCH (13:11)
[2021-01-24] MEDS: insulin Lispro (HumaLOG) vial - multi-dose SQ SCH (13:12)
[2021-01-24 15:00] VITALS: BP 136/74
--- NOTE | 2021-01-24 15:43 | NUR ---
Initial: Pt c/o SOB prior to ED. Pt presented with bilateral pneumonia, cellulitis of R leg and sepsis with hypotension per MD notes. Noted, pt currently on covid19 precautions d/t suspicions of covid19 infection. Pt has R anterior leg venous ulcer, L plantar foot diabetic ulcer,and R lower calf wound per [facility] notes. Pt consumed 100% of breakfast today, receiving carb-controlled diet. Pt may benefit from receiving double eggs for breakfast and double meat with meals LD to promote wound healing, d/w dietary. Pt last bm 01/23, pt receiving bowel care as needed. Will continue to monitor for further nutrition intervention. Recs: 1. Continue carb-controlled diet 2. Double eggs for breakfast double meat with LD, d/w dietary 2. Bowel care as needed 3. Scaled weight per rx Addendum: 01/24/21 at 1543 by Zhao [address]IC INTERN RD Amended: Links added. Addendum: 01/24/21 at [address] RD agree with copywriting intern note
[2021-01-24] MEDS: CLINDAMYCIN/D5W 900mg/50ml 50 ML IV SCH (17:37)
[2021-01-24 18:00] VITALS: BP 136/70
--- NOTE | 2021-01-24 18:28 | NUR ---
Problems reprioritized. Patient report given, questions answered & plan of care reviewed with GARIMA Marin.
[2021-01-24] MEDS: lactobacillus rhamnosus 10,000 MMU CELLS/CAPSULE PO SCH (20:00)
[2021-01-24 22:00] VITALS: BP 142/68
[2021-01-24] MEDS: quetiapine 100mg tablet PO SCH (22:05)
[2021-01-24] MEDS: normal saline 1000ml 1,000 ML IV SCH (22:07)
[2021-01-24] MEDS: insulin glargine (Lantus) pen - multi-dose SQ SCH (22:52)
[2021-01-25] MEDS: CLINDAMYCIN/D5W 900mg/50ml 50 ML IV SCH ×2 (01:37→10:06)
[2021-01-25 02:00] VITALS: BP 138/74
--- NOTE | 2021-01-25 06:34 | NUR ---
Patient in room PCU 3019. I have received report from Tomas PAINTING and had the opportunity to ask questions and assume patient care.
[2021-01-25 07:00] VITALS: BP 165/77
[2021-01-25] MEDS: enoxaparin 30mg/0.3ml syringe SUBCUT SCH ×2 (08:33→20:00)
[2021-01-25] MEDS: CefTRIAXone 2gm/D5W 50ml BAG 50 ML IV SCH (08:33)
[2021-01-25] MEDS: lactobacillus rhamnosus 10,000 MMU CELLS/CAPSULE PO SCH ×2 (08:34→22:08)
[2021-01-25] MEDS: lisinopril 20mg tablet PO SCH (08:34)
[2021-01-25] MEDS: HYDROchlorothiazide 25mg tablet PO SCH (08:34)
[2021-01-25] MEDS: atorvastatin 20mg tablet PO SCH (08:34)
[2021-01-25] MEDS: pantoprazole 40mg Tablet.DR PO SCH (08:35)
[2021-01-25] MEDS: clopidogrel 75mg tablet PO SCH (08:35)
[2021-01-25] MEDS: loratadine 10mg tablet PO SCH (08:35)
[2021-01-25] MEDS: pregabalin 75mg capsule PO SCH ×3 (08:35→22:08)
[2021-01-25 08:58] LABS: BASOPHILS # (AUTO) 0.1 X10'3 (0-0.2); BASOPHILS % (AUTO) 0.4 % (0-1); EOSINOPHILS % (AUTO) 0 % (0-6); HEMATOCRIT 36.4 % (35.0-45.0); HEMOGLOBIN 12.2 g/dl (12.0-16.0); LYMPHOCYTES # (AUTO) 1.5 X10'3 (1.1-4.8); LYMPHOCYTES % (AUTO) 7.5 % (21-51); MEAN CORPUSCULAR HEMOGLOBIN 28.6 PG (27.0-31.0); MEAN CORPUSCULAR HGB CONC 33.5 g/dL (33.0-36.5); MEAN CORPUSCULAR VOLUME 85.5 FL (78-98); MEAN PLATELET VOLUME 8.3 FL (7.4-10.4); MONOCYTES # (AUTO) 1.1 X10'3 (0-0.9); MONOCYTES % (AUTO) 5.2 % (2-12); NEUTROPHILS # (AUTO) 17.8 X10'3 (1.8-7.7); NEUTROPHILS % (AUTO) 86.9 % (42-75); PLATELET COUNT 423 X10'3 (140-440); RED BLOOD COUNT 4.25 X10'6 (4.20-5.60); RED CELL DISTRIBUTION WIDTH 16.1 % (11.5-14.5); WHITE BLOOD COUNT 20.5 X10'3 (4.5-11.0)
[2021-01-25 09:25] LABS: ALANINE AMINOTRANSFERASE 33 U/L (12-78); ALBUMIN 2.2 G/DL (3.4-5.0); ALBUMIN/GLOBULIN RATIO 0.4 (1.1-1.5); ALKALINE PHOSPHATASE 75 IU/L (46-116); ANION GAP 5 (8-16); ASPARTATE AMINO TRANSFERASE 44 U/L (10-37); BILIRUBIN,TOTAL 0.3 MG/DL (0.1-1.0); BLOOD UREA NITROGEN 14 MG/DL (7-18); BUN/CREATININE RATIO 18.2 (6.6-38.0); CALCIUM 9.1 MG/DL (8.5-10.1); CHLORIDE 99 MMOL/L (99-107); CREATININE 0.77 MG/DL (0.40-0.90); GLUCOSE 114 MG/DL (70-104); SODIUM 134 MMOL/L (135-145); TOTAL CARBON DIOXIDE 29.6 MMOL/L (24-32); TOTAL PROTEIN 7.4 G/DL (6.4-8.2); eGFR 79 ML/MIN
[2021-01-25] MEDS ORDERED: NORMAL SALINE IV SCH (10:15)
[2021-01-25] MEDS ORDERED: DAPTOMYCIN IV SCH (10:15)
[2021-01-25 11:00] VITALS: BP 150/75
[2021-01-25 11:09] LABS: TOTAL CELLS COUNTED 100
[2021-01-25 11:17] LABS: ANISOCYTOSIS 1+; LARGE PLATELETS FEW; PLATELET ESTIMATE NORMAL
[2021-01-25 11:27] LABS: TOXIC GRANULATION 1+
[2021-01-25] MEDS: normal saline 1000ml 1,000 ML IV SCH (13:26)
[2021-01-25 15:00] VITALS: BP 136/66
[2021-01-25 18:00] VITALS: BP 174/83
--- NOTE | 2021-01-25 18:17 | NUR ---
Problems reprioritized. Patient report given, questions answered & plan of care reviewed with Nesha PAINTING.
--- NOTE | 2021-01-25 18:21 | NUR ---
Problems reprioritized. Patient report given, questions answered & plan of care reviewed with Tomas PAINTING.
[2021-01-25] MEDS: HYDROcodone/acetaminophen 5mg/325mg tablet PO PRN (18:40)
[2021-01-25 22:00] VITALS: BP 136/66
[2021-01-25] MEDS: quetiapine 100mg tablet PO SCH (22:09)
[2021-01-25] MEDS: insulin glargine (Lantus) pen - multi-dose SQ SCH (22:22)
[2021-01-26] MEDS: normal saline 1000ml 1,000 ML IV SCH (05:48)
--- NOTE | 2021-01-26 06:40 | NUR ---
Problems reprioritized. Patient report given, questions answered & plan of care reviewed with Bruce.
[2021-01-26 07:00] VITALS: BP 130/55
--- NOTE | 2021-01-26 07:12 | NUR ---
Patient in room PCU 3019. I have received report from Sandor PAINTING and had the opportunity to ask questions and assume patient care.
[2021-01-26 07:21] LABS: BASOPHILS # (AUTO) 0.1 X10'3 (0-0.2); BASOPHILS % (AUTO) 0.7 % (0-1); EOSINOPHILS # (AUTO) 0.2 X10'3 (0-0.9); EOSINOPHILS % (AUTO) 1.3 % (0-6); HEMOGLOBIN 12.1 g/dl (12.0-16.0); LYMPHOCYTES # (AUTO) 2.5 X10'3 (1.1-4.8); MEAN CORPUSCULAR HEMOGLOBIN 28.5 PG (27.0-31.0); MEAN CORPUSCULAR HGB CONC 33.5 g/dL (33.0-36.5); MEAN CORPUSCULAR VOLUME 85.1 FL (78-98); MONOCYTES # (AUTO) 0.9 X10'3 (0-0.9); MONOCYTES % (AUTO) 5.4 % (2-12); NEUTROPHILS # (AUTO) 12.1 X10'3 (1.8-7.7); NEUTROPHILS % (AUTO) 76.6 % (42-75); PLATELET COUNT 436 X10'3 (140-440); RED BLOOD COUNT 4.24 X10'6 (4.20-5.60); RED CELL DISTRIBUTION WIDTH 16.6 % (11.5-14.5); WHITE BLOOD COUNT 15.8 X10'3 (4.5-11.0)
[2021-01-26 07:58] LABS: ALANINE AMINOTRANSFERASE 35 U/L (12-78); ALBUMIN 2.2 G/DL (3.4-5.0); ALBUMIN/GLOBULIN RATIO 0.4 (1.1-1.5); ALKALINE PHOSPHATASE 72 IU/L (46-116); ANION GAP 6 (8-16); ASPARTATE AMINO TRANSFERASE 48 U/L (10-37); BILIRUBIN,TOTAL 0.3 MG/DL (0.1-1.0); BLOOD UREA NITROGEN 15 MG/DL (7-18); BUN/CREATININE RATIO 20.3 (6.6-38.0); CHLORIDE 98 MMOL/L (99-107); CREATININE 0.74 MG/DL (0.40-0.90); GLUCOSE 98 MG/DL (70-104); POTASSIUM 4.1 MMOL/L (3.5-5.1); SODIUM 134 MMOL/L (135-145); TOTAL PROTEIN 7.3 G/DL (6.4-8.2); eGFR 83 ML/MIN
[2021-01-26 08:19] LABS: ANISOCYTOSIS 1+; NUCLEATED RED BLOOD CELLS 1 /100WBC (0-0); PLATELET ESTIMATE NORMAL; TOTAL CELLS COUNTED 100; TOXIC GRANULATION 3+; TOXIC VACUOLATION 1+
[2021-01-26] MEDS: lactobacillus rhamnosus 10,000 MMU CELLS/CAPSULE PO SCH ×2 (08:25→20:30)
[2021-01-26] MEDS: enoxaparin 30mg/0.3ml syringe SUBCUT SCH ×2 (08:25→20:32)
[2021-01-26] MEDS: atorvastatin 20mg tablet PO SCH (08:25)
[2021-01-26] MEDS: HYDROcodone/acetaminophen 5mg/325mg tablet PO PRN ×2 (08:26→20:31)
[2021-01-26] MEDS: lisinopril 20mg tablet PO SCH (08:26)
[2021-01-26] MEDS: HYDROchlorothiazide 25mg tablet PO SCH (08:26)
[2021-01-26] MEDS: pregabalin 75mg capsule PO SCH ×3 (08:27→20:30)
[2021-01-26] MEDS: pantoprazole 40mg Tablet.DR PO SCH (08:27)
[2021-01-26] MEDS: loratadine 10mg tablet PO SCH (08:27)
[2021-01-26] MEDS: clopidogrel 75mg tablet PO SCH (08:27)
[2021-01-26] MEDS: insulin Lispro (HumaLOG) vial - multi-dose SQ SCH ×2 (08:43→13:50)
[2021-01-26 11:00] VITALS: BP 152/80
[2021-01-26] MEDS: CefTRIAXone 2gm/D5W 50ml BAG 50 ML IV SCH (11:22)
[2021-01-26 15:50] VITALS: BP 148/83
[2021-01-26 18:00] VITALS: BP 152/72
--- NOTE | 2021-01-26 18:11 | NUR ---
Problems reprioritized. Patient report given, questions answered & plan of care reviewed with Sandor PAINTING.
[2021-01-26] MEDS: quetiapine 100mg tablet PO SCH (20:30)
[2021-01-26] MEDS: insulin glargine (Lantus) pen - multi-dose SQ SCH (21:00)
[2021-01-26 22:00] VITALS: BP 110/66
[2021-01-27] VITALS (7 sets, daily range): BP systolic 104–179; BP diastolic 43–96
[2021-01-27] MEDS: normal saline 1000ml 1,000 ML IV SCH
--- NOTE | 2021-01-27 06:13 | NUR ---
Problems reprioritized. Patient report given, questions answered & plan of care reviewed with Roberta.
--- NOTE | 2021-01-27 06:16 | NUR ---
Problems reprioritized. Patient report given, questions answered & plan of care reviewed with Marlon.
--- NOTE | 2021-01-27 06:54 | NUR ---
Patient in room PCU 3019. I have received report from Sandor PAINTING and had the opportunity to ask questions and assume patient care.
[2021-01-27] MEDS: CefTRIAXone 2gm/D5W 50ml BAG 50 ML IV SCH (08:24)
[2021-01-27] MEDS: clopidogrel 75mg tablet PO SCH (08:25)
[2021-01-27] MEDS: atorvastatin 20mg tablet PO SCH (08:25)
[2021-01-27] MEDS: lactobacillus rhamnosus 10,000 MMU CELLS/CAPSULE PO SCH ×2 (08:25→21:09)
[2021-01-27] MEDS: HYDROchlorothiazide 25mg tablet PO SCH (08:25)
[2021-01-27] MEDS: enoxaparin 30mg/0.3ml syringe SUBCUT SCH ×2 (08:25→21:09)
[2021-01-27] MEDS: loratadine 10mg tablet PO SCH (08:26)
[2021-01-27] MEDS: lisinopril 20mg tablet PO SCH (08:26)
[2021-01-27] MEDS: pantoprazole 40mg Tablet.DR PO SCH (08:26)
[2021-01-27] MEDS: pregabalin 75mg capsule PO SCH ×3 (08:26→21:08)
[2021-01-27] MEDS: insulin Lispro (HumaLOG) vial - multi-dose SQ SCH ×2 (08:36→13:14)
[2021-01-27 09:13] LABS: BASOPHILS # (AUTO) 0.1 X10'3 (0-0.2); BASOPHILS % (AUTO) 0.4 % (0-1); EOSINOPHILS # (AUTO) 0.1 X10'3 (0-0.9); EOSINOPHILS % (AUTO) 0.7 % (0-6); HEMATOCRIT 36.6 % (35.0-45.0); HEMOGLOBIN 12.5 g/dl (12.0-16.0); LYMPHOCYTES # (AUTO) 2.2 X10'3 (1.1-4.8); LYMPHOCYTES % (AUTO) 13.5 % (21-51); MEAN CORPUSCULAR HEMOGLOBIN 29.1 PG (27.0-31.0); MEAN CORPUSCULAR HGB CONC 34.2 g/dL (33.0-36.5); MEAN CORPUSCULAR VOLUME 85.2 FL (78-98); MEAN PLATELET VOLUME 7.9 FL (7.4-10.4); MONOCYTES # (AUTO) 0.6 X10'3 (0-0.9); MONOCYTES % (AUTO) 3.9 % (2-12); NEUTROPHILS # (AUTO) 13.5 X10'3 (1.8-7.7); NEUTROPHILS % (AUTO) 81.5 % (42-75); PLATELET COUNT 428 X10'3 (140-440); RED BLOOD COUNT 4.29 X10'6 (4.20-5.60); RED CELL DISTRIBUTION WIDTH 17.1 % (11.5-14.5); WHITE BLOOD COUNT 16.5 X10'3 (4.5-11.0)
[2021-01-27 09:28] LABS: ALANINE AMINOTRANSFERASE 29 U/L (12-78); ALBUMIN 2.3 G/DL (3.4-5.0); ALBUMIN/GLOBULIN RATIO 0.4 (1.1-1.5); ALKALINE PHOSPHATASE 73 IU/L (46-116); ANION GAP 5 (8-16); ASPARTATE AMINO TRANSFERASE 34 U/L (10-37); BILIRUBIN,TOTAL 0.4 MG/DL (0.1-1.0); BLOOD UREA NITROGEN 13 MG/DL (7-18); BUN/CREATININE RATIO 17.3 (6.6-38.0); CALCIUM 8.7 MG/DL (8.5-10.1); CHLORIDE 97 MMOL/L (99-107); CREATININE 0.75 MG/DL (0.40-0.90); GLUCOSE 169 MG/DL (70-104); POTASSIUM 4.6 MMOL/L (3.5-5.1); SODIUM 133 MMOL/L (135-145); TOTAL CARBON DIOXIDE 31.4 MMOL/L (24-32); TOTAL PROTEIN 7.5 G/DL (6.4-8.2); eGFR 81 ML/MIN
[2021-01-27 10:04] LABS: ANISOCYTOSIS 1+; NUCLEATED RED BLOOD CELLS 2 /100WBC (0-0); PLATELET ESTIMATE NORMAL; TOTAL CELLS COUNTED 100
[2021-01-27 10:05] LABS: TOXIC GRANULATION 2+; TOXIC VACUOLATION 1+
--- NOTE | 2021-01-27 18:23 | NUR ---
Problems reprioritized. Patient report given, questions answered & plan of care reviewed with Sandor PAINTING.
[2021-01-27] MEDS: insulin glargine (Lantus) pen - multi-dose SQ SCH (21:00)
[2021-01-27] MEDS: HYDROcodone/acetaminophen 5mg/325mg tablet PO PRN (21:08)
[2021-01-27] MEDS: quetiapine 100mg tablet PO SCH (21:09)
[2021-01-28 02:00] VITALS: BP 105/58
[2021-01-28 04:47] LABS: ALANINE AMINOTRANSFERASE 26 U/L (12-78); ALBUMIN 2.4 G/DL (3.4-5.0); ALBUMIN/GLOBULIN RATIO 0.5 (1.1-1.5); ALKALINE PHOSPHATASE 72 IU/L (46-116); ANION GAP 7 (8-16); ASPARTATE AMINO TRANSFERASE 27 U/L (10-37); BILIRUBIN,TOTAL 0.3 MG/DL (0.1-1.0); BLOOD UREA NITROGEN 15 MG/DL (7-18); BUN/CREATININE RATIO 18.8 (6.6-38.0); CHLORIDE 97 MMOL/L (99-107); GLUCOSE 102 MG/DL (70-104); POTASSIUM 4.4 MMOL/L (3.5-5.1); SODIUM 134 MMOL/L (135-145); TOTAL CARBON DIOXIDE 30.2 MMOL/L (24-32); TOTAL PROTEIN 7.6 G/DL (6.4-8.2); eGFR 76 ML/MIN
[2021-01-28 05:17] LABS: BASOPHILS # (AUTO) 0.1 X10'3 (0-0.2); BASOPHILS % (AUTO) 0.7 % (0-1); EOSINOPHILS # (AUTO) 0.1 X10'3 (0-0.9); EOSINOPHILS % (AUTO) 0.9 % (0-6); HEMATOCRIT 36.4 % (35.0-45.0); HEMOGLOBIN 12.2 g/dl (12.0-16.0); LYMPHOCYTES # (AUTO) 2.2 X10'3 (1.1-4.8); LYMPHOCYTES % (AUTO) 14.1 % (21-51); MEAN CORPUSCULAR HEMOGLOBIN 28.8 PG (27.0-31.0); MEAN CORPUSCULAR HGB CONC 33.5 g/dL (33.0-36.5); MONOCYTES # (AUTO) 0.6 X10'3 (0-0.9); MONOCYTES % (AUTO) 3.7 % (2-12); NEUTROPHILS # (AUTO) 12.4 X10'3 (1.8-7.7); NEUTROPHILS % (AUTO) 80.6 % (42-75); PLATELET COUNT 423 X10'3 (140-440); RED BLOOD COUNT 4.24 X10'6 (4.20-5.60); RED CELL DISTRIBUTION WIDTH 16.5 % (11.5-14.5); WHITE BLOOD COUNT 15.4 X10'3 (4.5-11.0)
[2021-01-28 06:00] VITALS: BP 115/57
--- NOTE | 2021-01-28 06:59 | NUR ---
Patient in room PCU 3019. I have received report from Sandor PAINTING and had the opportunity to ask questions and assume patient care.
[2021-01-28] MEDS: enoxaparin 30mg/0.3ml syringe SUBCUT SCH ×2 (08:49→20:23)
[2021-01-28] MEDS: CefTRIAXone 2gm/D5W 50ml BAG 50 ML IV SCH (08:49)
[2021-01-28] MEDS: clopidogrel 75mg tablet PO SCH (08:50)
[2021-01-28] MEDS: lactobacillus rhamnosus 10,000 MMU CELLS/CAPSULE PO SCH ×2 (08:50→20:22)
[2021-01-28] MEDS: pantoprazole 40mg Tablet.DR PO SCH (08:50)
[2021-01-28] MEDS: lisinopril 20mg tablet PO SCH (08:50)
[2021-01-28] MEDS: HYDROchlorothiazide 25mg tablet PO SCH (08:50)
[2021-01-28] MEDS: atorvastatin 20mg tablet PO SCH (08:50)
[2021-01-28] MEDS: loratadine 10mg tablet PO SCH (08:50)
[2021-01-28] MEDS: pregabalin 75mg capsule PO SCH ×3 (08:50→20:22)
[2021-01-28 11:00] VITALS: BP 121/58
[2021-01-28 15:00] VITALS: BP 121/63
--- NOTE | 2021-01-28 18:03 | NUR ---
Problems reprioritized. Patient report given, questions answered & plan of care reviewed with Franki.
--- NOTE | 2021-01-28 18:17 | NUR ---
Problems reprioritized. Patient report given, questions answered & plan of care reviewed with Constance PAINTING.
[2021-01-28 19:16] VITALS: BP 141/76
[2021-01-28] MEDS: quetiapine 100mg tablet PO SCH (20:22)
[2021-01-28] MEDS: insulin glargine (Lantus) pen - multi-dose SQ SCH (20:24)
[2021-01-28 22:00] VITALS: BP 135/83
[2021-01-29 02:00] VITALS: BP 131/67
--- NOTE | 2021-01-29 06:13 | NUR ---
Problems reprioritized. Patient report given, questions answered & plan of care reviewed with Misti.
[2021-01-29 07:36] VITALS: BP 131/72
[2021-01-29] MEDS: atorvastatin 20mg tablet PO SCH (08:02)
[2021-01-29] MEDS: clopidogrel 75mg tablet PO SCH (08:04)
[2021-01-29] MEDS: lisinopril 20mg tablet PO SCH (08:04)
[2021-01-29] MEDS: lactobacillus rhamnosus 10,000 MMU CELLS/CAPSULE PO SCH (08:05)
[2021-01-29] MEDS: enoxaparin 30mg/0.3ml syringe SUBCUT SCH (08:05)
[2021-01-29] MEDS: CefTRIAXone 2gm/D5W 50ml BAG 50 ML IV SCH (08:06)
[2021-01-29] MEDS: HYDROchlorothiazide 25mg tablet PO SCH (08:06)
[2021-01-29] MEDS: loratadine 10mg tablet PO SCH (08:10)
[2021-01-29] MEDS: pantoprazole 40mg Tablet.DR PO SCH (08:11)
[2021-01-29] MEDS: pregabalin 75mg capsule PO SCH ×2 (08:11→13:12)
[2021-01-29 08:16] LABS: BASOPHILS # (AUTO) 0.1 X10'3 (0-0.2); BASOPHILS % (AUTO) 0.4 % (0-1); EOSINOPHILS # (AUTO) 0.1 X10'3 (0-0.9); EOSINOPHILS % (AUTO) 0.6 % (0-6); HEMATOCRIT 39.6 % (35.0-45.0); HEMOGLOBIN 13.2 g/dl (12.0-16.0); LYMPHOCYTES # (AUTO) 1.9 X10'3 (1.1-4.8); LYMPHOCYTES % (AUTO) 11.9 % (21-51); MEAN CORPUSCULAR HEMOGLOBIN 28.7 PG (27.0-31.0); MEAN CORPUSCULAR HGB CONC 33.3 g/dL (33.0-36.5); MEAN CORPUSCULAR VOLUME 86.3 FL (78-98); MEAN PLATELET VOLUME 7.9 FL (7.4-10.4); MONOCYTES # (AUTO) 0.8 X10'3 (0-0.9); MONOCYTES % (AUTO) 5.3 % (2-12); NEUTROPHILS # (AUTO) 12.9 X10'3 (1.8-7.7); NEUTROPHILS % (AUTO) 81.8 % (42-75); PLATELET COUNT 466 X10'3 (140-440); RED BLOOD COUNT 4.59 X10'6 (4.20-5.60); RED CELL DISTRIBUTION WIDTH 16.8 % (11.5-14.5); WHITE BLOOD COUNT 15.8 X10'3 (4.5-11.0)
[2021-01-29 08:26] LABS: ALANINE AMINOTRANSFERASE 29 U/L (12-78); ALBUMIN 2.9 G/DL (3.4-5.0); ALBUMIN/GLOBULIN RATIO 0.5 (1.1-1.5); ALKALINE PHOSPHATASE 71 IU/L (46-116); ANION GAP 6 (8-16); ASPARTATE AMINO TRANSFERASE 26 U/L (10-37); BILIRUBIN,TOTAL 0.3 MG/DL (0.1-1.0); BLOOD UREA NITROGEN 17 MG/DL (7-18); BUN/CREATININE RATIO 21.5 (6.6-38.0); CALCIUM 9.6 MG/DL (8.5-10.1); CHLORIDE 95 MMOL/L (99-107); CREATININE 0.79 MG/DL (0.40-0.90); GLUCOSE 138 MG/DL (70-104); POTASSIUM 4.6 MMOL/L (3.5-5.1); SODIUM 131 MMOL/L (135-145); TOTAL PROTEIN 8.8 G/DL (6.4-8.2); eGFR 77 ML/MIN
[2021-01-29 11:00] VITALS: BP 136/78
[2021-01-29 15:00] VITALS: BP 136/82
--- NOTE | 2021-01-29 15:56 | NUR ---
Patient will be transfered to [facility] . Report called in to RN .
--- NOTE | 2021-01-29 17:24 | NUR ---
Patient was transferred at 1713 to [facility]. Patient was to have PIV remain. Patient belongings were sent with patient. Patient was transferred via [facility]an cargo, stable at transfer.
== END 2021-01-29 17:13 | DRG 720 ==
LOC: ER 06:46 → ED HOLD 11:26 → PCU 3S 20:00
PROVIDERS: ADMIT Family Medicine; ATTEND Family Medicine
PROC: 02HV33Z Insertion of Infusion Device into Superior Vena Cava, Percutaneous Approach (ICD-10-PCS; principal; 2021-01-23)
PROC: B548ZZA Ultrasonography of Superior Vena Cava, Guidance (ICD-10-PCS; 2021-01-23)
PROC: B32T1ZZ Computerized Tomography (CT Scan) of Left Pulmonary Artery using Low Osmolar Contrast (ICD-10-PCS; 2021-01-23)
PROC: B3201ZZ Computerized Tomography (CT Scan) of Thoracic Aorta using Low Osmolar Contrast (ICD-10-PCS; 2021-01-23)
PROC: B32S1ZZ Computerized Tomography (CT Scan) of Right Pulmonary Artery using Low Osmolar Contrast (ICD-10-PCS; 2021-01-23)
DX: A41.9 Sepsis, unspecified organism (principal); N17.9 Acute kidney failure, unspecified; J18.9 Pneumonia, unspecified organism; E11.51 Type 2 diabetes mellitus with diabetic peripheral angiopathy without gangrene; E11.621 Type 2 diabetes mellitus with foot ulcer; E78.00 Pure hypercholesterolemia, unspecified; E78.5 Hyperlipidemia, unspecified; E87.1 Hypo-osmolality and hyponatremia; E87.6 Hypokalemia; F17.210 Nicotine dependence, cigarettes, uncomplicated; G89.4 Chronic pain syndrome; I10 Essential (primary) hypertension; L03.115 Cellulitis of right lower limb; F32.9 Major depressive disorder, single episode, unspecified; Z20.822 Contact with and (suspected) exposure to COVID-19; F41.9 Anxiety disorder, unspecified; G61.0 Guillain-Barre syndrome; N39.0 Urinary tract infection, site not specified; I95.9 Hypotension, unspecified; R06.03 Acute respiratory distress; L97.529 Non-pressure chronic ulcer of other part of left foot with unspecified severity; L97.919 Non-pressure chronic ulcer of unspecified part of right lower leg with unspecified severity; Z86.718 Personal history of other venous thrombosis and embolism; Z87.442 Personal history of urinary calculi; Z88.0 Allergy status to penicillin; Z88.2 Allergy status to sulfonamides; Z88.8 Allergy status to other drugs, medicaments and biological substances; Z71.6 Tobacco abuse counseling
CPT/HCPCS: 36415; 36600; 71045; 71275; 80053; 81001; 82728; 82803; 82948; 83036; 83605; 83615; 83880; 84145; 84484; 85007; 85018; 85025; 85379; 85384; 86140; 87040; 87077; 87081; 87088; 87186; 87502; 87503; 87635; 93005; 93306; 93970; 94640; 94760; 96361; 96365; 96366; 96368; 96372; 96375; 97110; 97112; 97116; 97161; 97530; 97535; 99291; C9803; G0378; J0690; J0696; J0878; J1100; J1650; J1815; J2020; J3475; J3480; J3490; J7030; Q9967

== ENCOUNTER 2022-08-21 08:07 | Inpatient (IN) | payer MEDICAID ==
[~2022-08-21] VITALS: Ht 177.8 cm; Wt 115.0 kg
[~2022-08-21 08:07] MED LIST changes: +BACL20TA2 PO; -CEFP100T7 PO; -LACT-228 PO; -LACT1CAP26 PO; -LEVO750T21 PO; +LISI1TAB53 PO; +METF-1203 PO; -METH-360 PO; +METH-798 PO; -OMEG1CAP2 PO; -OMEP-50 PO; +OMEP20CA16 PO; -PREG100C PO; +PREG150C46 PO; +QUET200T31 PO; -QUET25TA PO; +SIMV-45 PO; -SIMV10TA2 PO
[2022-08-21 09:11] LABS: BASOPHILS # (AUTO) 0.1 X10'3 (0-0.2); BASOPHILS % (AUTO) 0.4 % (0-1); EOSINOPHILS % (AUTO) 0.2 % (0-6); HEMATOCRIT 35.4 % (35.0-45.0); HEMOGLOBIN 12.4 g/dl (12.0-16.0); LYMPHOCYTES # (AUTO) 0.8 X10'3 (1.1-4.8); LYMPHOCYTES % (AUTO) 5.2 % (21-51); MEAN CORPUSCULAR VOLUME 85.6 FL (78-98); MEAN PLATELET VOLUME 7.2 FL (7.4-10.4); MONOCYTES # (AUTO) 1.2 X10'3 (0-0.9); MONOCYTES % (AUTO) 7.8 % (2-12); NEUTROPHILS # (AUTO) 13.1 X10'3 (1.8-7.7); NEUTROPHILS % (AUTO) 86.4 % (42-75); PLATELET COUNT 390 X10'3 (140-440); RED BLOOD COUNT 4.14 X10'6 (4.20-5.60); RED CELL DISTRIBUTION WIDTH 14.9 % (11.5-14.5); WHITE BLOOD COUNT 15.1 X10'3 (4.5-11.0)
[2022-08-21 09:23] LABS: ALANINE AMINOTRANSFERASE 40 U/L (12-78); ALBUMIN 3.2 G/DL (3.4-5.0); ALBUMIN/GLOBULIN RATIO 0.6 (1.1-1.5); ALKALINE PHOSPHATASE 110 IU/L (46-116); ANION GAP 7 (8-16); ASPARTATE AMINO TRANSFERASE 35 U/L (10-37); BILIRUBIN,TOTAL 0.8 MG/DL (0.1-1.0); BLOOD UREA NITROGEN 10 MG/DL (7-18); BUN/CREATININE RATIO 8.5 (6.6-38.0); CHLORIDE 86 MMOL/L (99-107); CREATININE 1.18 MG/DL (0.40-0.90); GLUCOSE 139 MG/DL (70-104); POTASSIUM 3.4 MMOL/L (3.5-5.1); SODIUM 124 MMOL/L (135-145); TOTAL CARBON DIOXIDE 31.4 MMOL/L (24-32); TOTAL PROTEIN 8.6 G/DL (6.4-8.2); eGFR 48 ML/MIN
[2022-08-21] MEDS ORDERED: levoFLOXACIN-Levaquin 750MG/D5 150 ML IV ONE (09:40)
[2022-08-21] MEDS ORDERED: HYDROcodone/acetaminophen 10/325mg tab PO ONE (11:00)
[2022-08-21 11:25] LABS: GLUCOSE, URINE NEGATIVE (Neg); KETONES,URINE NEGATIVE (Neg); LEUKOCYTE ESTERASE ,URINE LARGE (Neg); NITRITES, URINE POSITIVE (Neg); OCCULT BLOOD,URINE TRACE-INTACT (Neg); PH,URINE 6.5 (4.8-8.0); PROTEIN,URINE TRACE mg/dl (Neg)
[2022-08-21 11:56] LABS: CLARITY,URINE CLOUDY (Clear); COLOR,URINE AMBER (Yellow); UA COLLECTION TYPE CLN CATCH MIDSTREAM
[2022-08-21 11:59] LABS: WBC,URINE TNTC /HPF (0-4)
[2022-08-21 12:00] LABS: BACTERIA,URINE 4+ /HPF (Neg); SQUAMOUS EPITHELIAL CELL,UR FEW /LPF (FEW)
[2022-08-21] MEDS ORDERED: MESSAGE TO PHARMACY PO ONE (12:05)
[2022-08-21] MEDS ORDERED: linezolid 600mg/300ml PREMIX 300 ML IV SCH ×2 (12:05→23:37)
[2022-08-21] MEDS ORDERED: DEXTROSE 15 GM of carb/4 tabs (each vial/BOTTLE has 4 tablets) PO PRN ×2 (12:05)
[2022-08-21] MEDS ORDERED: diphenhydrAMINE 25mg capsule PO PRN (12:05)
[2022-08-21] MEDS ORDERED: magnesium Cl slow-release 64mg tablet PO PRN (12:05)
[2022-08-21] MEDS ORDERED: ondansetron/PF 4mg/2ml inj IV PRN (12:05)
[2022-08-21] MEDS ORDERED: magnesium 4gm in 100ml NS 100 ML IV PRN (12:05)
[2022-08-21] MEDS ORDERED: glucagon, human recombinant 1mg kit SUBCUT PRN (12:05)
[2022-08-21] MEDS ORDERED: dextrose 50%-water 50ml dispensing syringe IV PRN ×2 (12:05)
[2022-08-21] MEDS ORDERED: magnesium hydroxide 30ml (MOM) UD suspension PO PRN (12:05)
[2022-08-21] MEDS ORDERED: morphine 2 MG/ML inj. syringe IV PRN (12:05)
[2022-08-21] MEDS ORDERED: acetaminophen 325mg tablet PO PRN ×2 (12:05)
[2022-08-21] MEDS ORDERED: insulin Lispro (HumaLOG) vial - multi-dose SQ SCH (12:05)
[2022-08-21] MEDS ORDERED: potassium CL 10mEq/100ml bag 100 ML IV PRN (12:05)
[2022-08-21] MEDS ORDERED: POTASSIUM BICARB 20meq eff tab 20 MEQ TABLET.EFF PO PRN (12:05)
[2022-08-21] MEDS ORDERED: acetaminophen 650mg rectal suppository RC PRN (12:05)
[2022-08-21] MEDS ORDERED: bisacodyl 10mg suppository rectal RC PRN (12:05)
[2022-08-21] MEDS ORDERED: HYDROcodone/acetaminophen 5mg/325mg tablet PO PRN (12:05)
[2022-08-21] MEDS ORDERED: mag hydrox/Alum hydrox/simeth 30ml oral suspension PO PRN (12:05)
[2022-08-21] MEDS: normal saline 1000ml 1,000 ML IV SCH (12:05)
[2022-08-21] MEDS ORDERED: magnesium 2GM in 50ml NS 50 ML IV PRN (12:05)
[2022-08-21 13:05] LABS: HEMOGLOBIN A1C 6.6 % (4.5-6.2)
--- NOTE | 2022-08-21 14:16 | NUR ---
Report given to GARIMA Rojas in PCU.
[2022-08-21] MEDS ORDERED: LISI1TAB51 PO (14:37)
[2022-08-21 15:33] VITALS: BP 113/58
--- NOTE | 2022-08-21 16:57 | NUR ---
patient oriented to room and call light - given IS and educated on use Qhr while awake
[2022-08-21 18:00] VITALS: BP 126/69
--- NOTE | 2022-08-21 18:24 | NUR ---
Problems reprioritized. Patient report given, questions answered & plan of care reviewed with Erna PAINTING. Patient resting in bed in no acute distress.
[2022-08-21] MEDS: HYDROcodone/acetaminophen 10/325mg tab PO PRN (19:49)
[2022-08-21] MEDS: POTASSIUM BICARB 20meq eff tab 20 MEQ TABLET.EFF PO PRN ×2 (19:49→23:26)
[2022-08-21] MEDS ORDERED: enoxaparin 40mg/0.4ml syringe SUBCUT ONE (20:00)
[2022-08-21] MEDS: K and/or MAG REPLACEMENT MC SCH (20:00)
[2022-08-21] MEDS: docusate sod 100mg capsule PO SCH (20:01)
[2022-08-21] MEDS: CefTRIAXone/D5W-Rocephin 1gm 50 ML IV SCH (20:02)
[2022-08-21] MEDS: insulin glargine (Lantus) pen - multi-dose SQ SCH (21:00)
[2022-08-22 02:00] VITALS: BP 132/64
[2022-08-22 06:00] VITALS: BP 149/79
[2022-08-22 06:08] LABS: BASOPHILS # (AUTO) 0.1 X10'3 (0-0.2); BASOPHILS % (AUTO) 0.7 % (0-1); EOSINOPHILS # (AUTO) 0.1 X10'3 (0-0.9); EOSINOPHILS % (AUTO) 1.2 % (0-6); HEMATOCRIT 32.5 % (35.0-45.0); HEMOGLOBIN 11.5 g/dl (12.0-16.0); LYMPHOCYTES # (AUTO) 1.1 X10'3 (1.1-4.8); MEAN CORPUSCULAR HEMOGLOBIN 29.9 PG (27.0-31.0); MEAN CORPUSCULAR HGB CONC 35.5 g/dL (33.0-36.5); MEAN CORPUSCULAR VOLUME 84.3 FL (78-98); MEAN PLATELET VOLUME 7.3 FL (7.4-10.4); MONOCYTES # (AUTO) 1.2 X10'3 (0-0.9); MONOCYTES % (AUTO) 11.5 % (2-12); NEUTROPHILS # (AUTO) 8.2 X10'3 (1.8-7.7); NEUTROPHILS % (AUTO) 76.6 % (42-75); PLATELET COUNT 372 X10'3 (140-440); RED BLOOD COUNT 3.85 X10'6 (4.20-5.60); RED CELL DISTRIBUTION WIDTH 14.6 % (11.5-14.5); WHITE BLOOD COUNT 10.7 X10'3 (4.5-11.0)
[2022-08-22] MEDS: normal saline 1000ml 1,000 ML IV SCH ×2 (06:17→14:45)
[2022-08-22 06:27] LABS: ALANINE AMINOTRANSFERASE 32 U/L (12-78); ALBUMIN 2.4 G/DL (3.4-5.0); ALBUMIN/GLOBULIN RATIO 0.5 (1.1-1.5); ALKALINE PHOSPHATASE 97 IU/L (46-116); ANION GAP 3 (8-16); ASPARTATE AMINO TRANSFERASE 39 U/L (10-37); BILIRUBIN,TOTAL 0.6 MG/DL (0.1-1.0); BLOOD UREA NITROGEN 8 MG/DL (7-18); BUN/CREATININE RATIO 10.8 (6.6-38.0); CHLORIDE 93 MMOL/L (99-107); CHOL/HDL RATIO 4.7 (0.00-4.99); CHOLESTEROL 103 MG/DL (0-200); CREATININE 0.74 MG/DL (0.40-0.90); GLUCOSE 142 MG/DL (70-104); HDL CHOLESTEROL 22 MG/DL (35-60); LDL CHOLESTEROL 59 MG/DL (50-100); MAGNESIUM 1.7 MG/DL (1.5-2.4); PHOSPHORUS 2.4 MG/DL (2.3-4.5); POTASSIUM 3.7 MMOL/L (3.5-5.1); SODIUM 127 MMOL/L (135-145); TOTAL CARBON DIOXIDE 30.8 MMOL/L (24-32); TOTAL PROTEIN 7.1 G/DL (6.4-8.2); TRIGLYCERIDES 124 MG/DL (20-135); eGFR 82 ML/MIN
[2022-08-22] MEDS: CefTRIAXone/D5W-Rocephin 1gm 50 ML IV SCH (07:59)
[2022-08-22] MEDS: enoxaparin 40mg/0.4ml syringe SUBCUT SCH (08:00)
[2022-08-22] MEDS: docusate sod 100mg capsule PO SCH ×2 (08:00→20:14)
[2022-08-22] MEDS: K and/or MAG REPLACEMENT MC SCH ×2 (08:00→20:00)
[2022-08-22] MEDS: HYDROcodone/acetaminophen 10/325mg tab PO PRN ×2 (10:48→19:52)
[2022-08-22 12:23] VITALS: BP 132/75
--- NOTE | 2022-08-22 13:47 | NUR ---
Initial: Pt admit for nonhealing diabetic foot wound with cellulitis. Per wound care note wound to left foot is full thickness. Noted pt receiving routine Zyvox. Pt seen at bedside for written and verbal high protein and low tyramine nutrition therapy educations. Pt reports appetite has been low since admit, currently documented with average 75% PO intake of first two meals however lunch tray present during RD visit and pt had hardly eaten any of it and stated she was done eating. Pt denies food preferences or difficulty swallowing though does report difficulty chewing and agrees to soft to chew chop all food, d/w dietary. Pt denies food allergies or constipation/diarrhea. Pt provided with RD contact information and encouraged to reach out if needed. Will continue to follow closely and monitor need for nutrition intervention pending trends in PO intake following texture modification. Recommendations: 1) Continue CHO controlled diet; liberalize to regular diet if PO intake is poor and/or BG levels are well controlled 2) Soft to chew chop all food per pt preference 3) Monitor need for ONS/additional protein 4) Routine bowel care 5) Scaled weight this admit; subsequent weekly scaled weights Addendum: 08/22/22 at [address] Amended: Links added.
[2022-08-22 15:00] VITALS: BP 135/77
[2022-08-22 18:00] VITALS: BP 137/74
[2022-08-22] MEDS: linezolid 600mg tablet PO SCH (20:14)
[2022-08-22] MEDS: insulin glargine (Lantus) pen - multi-dose SQ SCH (21:00)
--- NOTE | 2022-08-22 21:04 | NUR ---
I spoke with Dr. Fine the night hospitalist; and she gave me order for inhaler but not any of the other home Meds and wants the day shift to ask the admitting doctor to go over the list in the am.
[2022-08-22] MEDS ORDERED: ALBUTEROL INHALER 1 PUFF/90 MCG INHALation IH PRN (21:05)
[2022-08-22] MEDS: morphine 2 MG/ML inj. syringe IV PRN (21:36)
[2022-08-22 22:00] VITALS: BP 154/81
[2022-08-23] MEDS: HYDROcodone/acetaminophen 10/325mg tab PO PRN ×4 (00:07→20:24)
[2022-08-23 02:00] VITALS: BP 144/82
[2022-08-23] MEDS ORDERED: cyclobenzaprine 10mg tablet PO PRN (02:35)
[2022-08-23] MEDS ORDERED: albuterol 2.5 MG/3 ML nebule NEB PRN (02:35)
[2022-08-23] MEDS: normal saline 1000ml 1,000 ML IV SCH ×3 (04:05→08:27)
[2022-08-23] MEDS: morphine 2 MG/ML inj. syringe IV PRN ×2 (04:49→09:36)
--- NOTE | 2022-08-23 06:06 | NUR ---
1800 Report given to this RN by GARIMA Amos. Estuardo verified. Pt resting in bed. Pt having intermittent generalized pain. She got [place] and morphine. Dressing remains intact. Addendum: 08/23/22 at 0702 by Alise Mayen RN 0600 Report given to GARIMA Amos at bedside. Estuardo verified. Pt in no acute distress at time of handoff.
[2022-08-23 06:18] LABS: BASOPHILS % (AUTO) 0.3 % (0-1); EOSINOPHILS # (AUTO) 0.1 X10'3 (0-0.9); EOSINOPHILS % (AUTO) 0.9 % (0-6); HEMATOCRIT 36.7 % (35.0-45.0); HEMOGLOBIN 13.1 g/dl (12.0-16.0); LYMPHOCYTES # (AUTO) 0.7 X10'3 (1.1-4.8); LYMPHOCYTES % (AUTO) 6.6 % (21-51); MEAN CORPUSCULAR HEMOGLOBIN 30.3 PG (27.0-31.0); MEAN CORPUSCULAR HGB CONC 35.7 g/dL (33.0-36.5); MEAN PLATELET VOLUME 7.4 FL (7.4-10.4); MONOCYTES # (AUTO) 0.9 X10'3 (0-0.9); MONOCYTES % (AUTO) 7.8 % (2-12); NEUTROPHILS # (AUTO) 9.2 X10'3 (1.8-7.7); NEUTROPHILS % (AUTO) 84.4 % (42-75); PLATELET COUNT 451 X10'3 (140-440); RED BLOOD COUNT 4.32 X10'6 (4.20-5.60); RED CELL DISTRIBUTION WIDTH 14.5 % (11.5-14.5)
[2022-08-23 06:44] LABS: ALANINE AMINOTRANSFERASE 31 U/L (12-78); ALBUMIN 2.5 G/DL (3.4-5.0); ALBUMIN/GLOBULIN RATIO 0.5 (1.1-1.5); ALKALINE PHOSPHATASE 109 IU/L (46-116); ANION GAP 10 (8-16); ASPARTATE AMINO TRANSFERASE 28 U/L (10-37); BILIRUBIN,TOTAL 0.4 MG/DL (0.1-1.0); BLOOD UREA NITROGEN 6 MG/DL (7-18); BUN/CREATININE RATIO 9.1 (6.6-38.0); CALCIUM 9.1 MG/DL (8.5-10.1); CHLORIDE 92 MMOL/L (99-107); CREATININE 0.66 MG/DL (0.40-0.90); GLUCOSE 164 MG/DL (70-104); MAGNESIUM 1.8 MG/DL (1.5-2.4); PHOSPHORUS 2.9 MG/DL (2.3-4.5); POTASSIUM 3.8 MMOL/L (3.5-5.1); SODIUM 131 MMOL/L (135-145); TOTAL CARBON DIOXIDE 29.1 MMOL/L (24-32); TOTAL PROTEIN 7.8 G/DL (6.4-8.2); eGFR > 90 ML/MIN
[2022-08-23 07:24] VITALS: BP 173/94
[2022-08-23] MEDS ORDERED: non-formulary drug (Methocarbamol 2 TAB) PO SCH (08:00)
[2022-08-23] MEDS: K and/or MAG REPLACEMENT MC SCH ×2 (08:00→20:00)
[2022-08-23] MEDS: enoxaparin 40mg/0.4ml syringe SUBCUT SCH (08:05)
[2022-08-23] MEDS: lisinopril 20mg tablet PO SCH ×2 (08:05→20:22)
[2022-08-23] MEDS: docusate sod 100mg capsule PO SCH ×2 (08:06→20:24)
[2022-08-23] MEDS: clopidogrel 75mg tablet PO SCH (08:06)
[2022-08-23] MEDS: HYDROchlorothiazide 12.5mg capsule PO SCH ×2 (08:06→20:24)
[2022-08-23] MEDS: loratadine 10mg tablet PO SCH (08:06)
[2022-08-23] MEDS: pregabalin 75mg capsule PO SCH ×3 (08:06→20:24)
[2022-08-23] MEDS: linezolid 600mg tablet PO SCH ×2 (08:06→20:23)
[2022-08-23] MEDS ORDERED: metroNIDAZOLE-Flagyl 500mg/NS 100 ML IV SCH (08:25)
[2022-08-23] MEDS: CefTRIAXone/D5W-Rocephin 1gm 50 ML IV SCH (08:27)
[2022-08-23 12:13] VITALS: BP 140/78
[2022-08-23] MEDS: metroNIDAZOLE 500mg tablet PO SCH ×2 (13:00→20:23)
--- NOTE | 2022-08-23 14:05 | NUR ---
Called pharmacy about Flagyl. AM dose finished infusing @1030 new PO order due @1300. Pharmacist advised to skip 1300 dose adn resume schedule with 2100
[2022-08-23 15:00] VITALS: BP 145/78
[2022-08-23 18:00] VITALS: BP 131/65
--- NOTE | 2022-08-23 18:32 | NUR ---
Patient in room U 3028. I have received report from GARIMA GENAO and had the opportunity to ask questions and assume patient care. Addendum: 08/23/22 at 1834 by Shayna Breaux RN Amended: Links added.
[2022-08-23] MEDS: quetiapine 100mg tablet PO SCH (20:22)
[2022-08-23] MEDS: atorvastatin 20mg tablet PO SCH (20:30)
[2022-08-23] MEDS: insulin glargine (Lantus) pen - multi-dose SQ SCH (21:00)
[2022-08-23 22:00] VITALS: BP 90/41
--- NOTE | 2022-08-23 22:58 | NUR ---
incontinent skin care done complete lien change and bed. pure wick applied.
[2022-08-24 02:00] VITALS: BP 106/63
[2022-08-24] MEDS: normal saline 1000ml 1,000 ML IV SCH ×2 (03:20→20:54)
[2022-08-24 06:00] VITALS: BP 146/82
[2022-08-24 06:35] LABS: BASOPHILS # (AUTO) 0.1 X10'3 (0-0.2); BASOPHILS % (AUTO) 0.7 % (0-1); EOSINOPHILS # (AUTO) 0.1 X10'3 (0-0.9); EOSINOPHILS % (AUTO) 1.4 % (0-6); HEMATOCRIT 32.8 % (35.0-45.0); HEMOGLOBIN 11.3 g/dl (12.0-16.0); LYMPHOCYTES % (AUTO) 11.6 % (21-51); MEAN CORPUSCULAR HEMOGLOBIN 29.6 PG (27.0-31.0); MEAN CORPUSCULAR HGB CONC 34.5 g/dL (33.0-36.5); MEAN CORPUSCULAR VOLUME 85.9 FL (78-98); MEAN PLATELET VOLUME 7.1 FL (7.4-10.4); MONOCYTES # (AUTO) 0.8 X10'3 (0-0.9); MONOCYTES % (AUTO) 9.6 % (2-12); NEUTROPHILS # (AUTO) 6.7 X10'3 (1.8-7.7); NEUTROPHILS % (AUTO) 76.7 % (42-75); PLATELET COUNT 450 X10'3 (140-440); RED BLOOD COUNT 3.82 X10'6 (4.20-5.60); RED CELL DISTRIBUTION WIDTH 14.8 % (11.5-14.5); WHITE BLOOD COUNT 8.8 X10'3 (4.5-11.0)
--- NOTE | 2022-08-24 06:58 | NUR ---
Problems reprioritized. Patient report given, questions answered & plan of care reviewed with GARIMA CHÁVEZ. Addendum: 08/24/22 at 0659 by Shayna Breaux RN Amended: Links added.
[2022-08-24 07:01] LABS: ALANINE AMINOTRANSFERASE 27 U/L (12-78); ALBUMIN 2.2 G/DL (3.4-5.0); ALBUMIN/GLOBULIN RATIO 0.5 (1.1-1.5); ALKALINE PHOSPHATASE 96 IU/L (46-116); ANION GAP 9 (8-16); ASPARTATE AMINO TRANSFERASE 27 U/L (10-37); BILIRUBIN,TOTAL 0.4 MG/DL (0.1-1.0); BLOOD UREA NITROGEN 9 MG/DL (7-18); BUN/CREATININE RATIO 13.8 (6.6-38.0); CALCIUM 8.2 MG/DL (8.5-10.1); CHLORIDE 94 MMOL/L (99-107); CREATININE 0.65 MG/DL (0.40-0.90); GLUCOSE 129 MG/DL (70-104); MAGNESIUM 1.5 MG/DL (1.5-2.4); PHOSPHORUS 3.7 MG/DL (2.3-4.5); POTASSIUM 3.9 MMOL/L (3.5-5.1); SODIUM 131 MMOL/L (135-145); TOTAL CARBON DIOXIDE 28.3 MMOL/L (24-32); eGFR > 90 ML/MIN
--- NOTE | 2022-08-24 07:15 | NUR ---
Patient in room PCU 3028. I have received report from GARIMA Corral and had the opportunity to ask questions and assume patient care.
[2022-08-24] MEDS: K and/or MAG REPLACEMENT MC SCH ×2 (09:12→20:00)
[2022-08-24] MEDS: CefTRIAXone 2gm/D5W 50ml BAG 50 ML IV SCH (10:33)
[2022-08-24] MEDS ORDERED: ringers solution, lacted 1,000 ML IV ONE (10:35)
[2022-08-24] MEDS: clopidogrel 75mg tablet PO SCH ×2 (10:36→19:05)
[2022-08-24] MEDS: pregabalin 75mg capsule PO SCH ×3 (10:36→20:57)
[2022-08-24] MEDS: lisinopril 20mg tablet PO SCH ×2 (10:36→20:56)
[2022-08-24] MEDS: enoxaparin 40mg/0.4ml syringe SUBCUT SCH ×2 (10:36→19:06)
[2022-08-24] MEDS: docusate sod 100mg capsule PO SCH ×2 (10:36→20:57)
[2022-08-24] MEDS: loratadine 10mg tablet PO SCH (10:36)
[2022-08-24] MEDS: HYDROchlorothiazide 12.5mg capsule PO SCH ×2 (10:36→20:55)
[2022-08-24] MEDS: metroNIDAZOLE 500mg tablet PO SCH ×3 (10:37→20:56)
[2022-08-24] MEDS: linezolid 600mg tablet PO SCH ×2 (10:37→20:57)
[2022-08-24 11:00] VITALS: BP 154/70
[2022-08-24] MEDS: HYDROcodone/acetaminophen 10/325mg tab PO PRN ×2 (12:49→17:47)
[2022-08-24 15:00] VITALS: BP 141/78
[2022-08-24 18:00] VITALS: BP 137/67
--- NOTE | 2022-08-24 19:00 | NUR ---
Problems reprioritized. Patient report given, questions answered & plan of care reviewed with GARIMA Corral.
--- NOTE | 2022-08-24 19:19 | NUR ---
Patient in room U 3028. I have received report from GARIMA CHÁVEZ and had the opportunity to ask questions and assume patient care. Addendum: 08/24/22 at 1920 by Shayna Breaux RN Amended: Links added.
[2022-08-24] MEDS: atorvastatin 20mg tablet PO SCH (20:56)
[2022-08-24] MEDS: quetiapine 100mg tablet PO SCH (20:57)
[2022-08-24] MEDS: insulin glargine (Lantus) pen - multi-dose SQ SCH (21:00)
[2022-08-24 22:00] VITALS: BP 128/68
[2022-08-25] VITALS (18 sets, daily range): BP systolic 115–152; BP diastolic 59–80
--- NOTE | 2022-08-25 05:35 | NUR ---
WITH SMALL SIP OF WATER PRO OP PEPCID GIVEN ORDERED.
[2022-08-25] MEDS ORDERED: famotidine 20mg tablet PO ONE (06:00)
--- NOTE | 2022-08-25 06:50 | NUR ---
Patient in room PCU 3028. I have received report from GARIMA Corral and had the opportunity to ask questions and assume patient care.
--- NOTE | 2022-08-25 06:53 | NUR ---
Problems reprioritized. Patient report given, questions answered & plan of care reviewed with GARIMA CHÁVEZ. Addendum: 08/25/22 at 0653 by Shayna Breaux RN Amended: Links added.
[2022-08-25] MEDS ORDERED: sevoflurane 250ml liquid IH ONE (08:10)
[2022-08-25 08:14] LABS: BASOPHILS # (AUTO) 0.1 X10'3 (0-0.2); BASOPHILS % (AUTO) 0.9 % (0-1); EOSINOPHILS # (AUTO) 0.2 X10'3 (0-0.9); HEMATOCRIT 34.2 % (35.0-45.0); HEMOGLOBIN 11.9 g/dl (12.0-16.0); LYMPHOCYTES # (AUTO) 0.9 X10'3 (1.1-4.8); LYMPHOCYTES % (AUTO) 11.1 % (21-51); MEAN CORPUSCULAR HEMOGLOBIN 29.4 PG (27.0-31.0); MEAN CORPUSCULAR HGB CONC 34.8 g/dL (33.0-36.5); MEAN CORPUSCULAR VOLUME 84.7 FL (78-98); MEAN PLATELET VOLUME 6.7 FL (7.4-10.4); MONOCYTES # (AUTO) 0.6 X10'3 (0-0.9); MONOCYTES % (AUTO) 7.5 % (2-12); NEUTROPHILS # (AUTO) 6.5 X10'3 (1.8-7.7); NEUTROPHILS % (AUTO) 78.5 % (42-75); PLATELET COUNT 510 X10'3 (140-440); RED BLOOD COUNT 4.04 X10'6 (4.20-5.60); RED CELL DISTRIBUTION WIDTH 14.5 % (11.5-14.5); WHITE BLOOD COUNT 8.3 X10'3 (4.5-11.0)
[2022-08-25] MEDS: CefTRIAXone 2gm/D5W 50ml BAG 50 ML IV SCH ×2 (08:15→08:19)
[2022-08-25 08:28] LABS: ALANINE AMINOTRANSFERASE 24 U/L (12-78); ALBUMIN 2.3 G/DL (3.4-5.0); ALBUMIN/GLOBULIN RATIO 0.5 (1.1-1.5); ALKALINE PHOSPHATASE 91 IU/L (46-116); ANION GAP 6 (8-16); ASPARTATE AMINO TRANSFERASE 26 U/L (10-37); BILIRUBIN,TOTAL 0.3 MG/DL (0.1-1.0); BLOOD UREA NITROGEN 9 MG/DL (7-18); BUN/CREATININE RATIO 13.2 (6.6-38.0); CALCIUM 8.8 MG/DL (8.5-10.1); CHLORIDE 97 MMOL/L (99-107); CREATININE 0.68 MG/DL (0.40-0.90); GLUCOSE 114 MG/DL (70-104); MAGNESIUM 1.9 MG/DL (1.5-2.4); PHOSPHORUS 3.6 MG/DL (2.3-4.5); POTASSIUM 4.3 MMOL/L (3.5-5.1); SODIUM 131 MMOL/L (135-145); TOTAL CARBON DIOXIDE 27.8 MMOL/L (24-32); TOTAL PROTEIN 7.4 G/DL (6.4-8.2); eGFR > 90 ML/MIN
[2022-08-25] MEDS ORDERED: midazolam 1 mg/ML 2ml injection ONE (08:31)
[2022-08-25] MEDS ORDERED: fentaNYL/PF 50MCG/1 ML 2ML syringe ONE (08:31)
[2022-08-25] MEDS ORDERED: LIDOcaine 1%/PF 5ML 10 MG/ML VIAL ONE (08:38)
[2022-08-25] MEDS ORDERED: propofol inj 20 ML IV ONE (08:38)
[2022-08-25] MEDS ORDERED: proCHLORperazine 10 MG/2 ml inj IV PRN (08:55)
[2022-08-25] MEDS ORDERED: morphine 2 MG/ML inj. syringe IV PRN (08:55)
[2022-08-25] MEDS ORDERED: ringers solution, lacted 1,000 ML IV SCH (08:55)
[2022-08-25] MEDS ORDERED: morphine 4 MG/ML inj SYRINge IV PRN (08:55)
[2022-08-25] MEDS ORDERED: ondansetron/PF 4mg/2ml inj IV PRN (08:55)
[2022-08-25] MEDS ORDERED: meperidine/PF 25mg/ml syringe IV PRN ×3 (08:55)
--- NOTE | 2022-08-25 08:55 | NUR ---
Received from OR via HOSPITAL BED, accompanied by Anesthesiologist DR NOBLES and report given by Anesthesiolgist. PT IS GROGGY BUT RESPONDS TO VERBAL STIMULI. PT PLACED ON BEDSIDE MONITOR, VSS. PT IN SR WITH RATE IN 90'S. PT RECEIVING 8L O2 TO MASK AND TOLERATING WELL WITH O2 SAT > 95%. WILL TITRATE DOWN PT TOLERATES. PT HAS 22G PIV TO LEFT FA WITH LR INFUSING ORDERED. BLOOD SUGAR IS 152, MD AWARE. PT HAS GAUZE TO ANTERIOR FOOT THAT IS WRAPPED IN KAT WRAP. SANGUINEOUS DRAINAGE NOTED AND HAS BEEN MARKED. PT DENIES PAIN AT THIS TIME AND IS RESTING COMFORTABLY. WILL CONTINUE TO ASSESS.
[2022-08-25 09:10] LABS: PRE OP PARTIAL THROMB. TIME 30 SECONDS (22-32)
--- NOTE | 2022-08-25 09:29 | NUR ---
Reassessment; Pt continues on Carb control diet w/ avg intake 65% of meals since admit, though up to 100% last 2 meals. It pt continues w/ 100% intake of meals likely no nutrition intervention needed. Pt scheduled for I&D of foot today per MD note. LBM 08/20 receiving routine and PRN bowel care. Will continue to monitor. Recommendations: 1) Continue CHO controlled diet; liberalize to regular diet if PO intake is poor and/or BG levels are well controlled 2) Soft to chew chop all food per pt preference 3) Monitor need for ONS/additional protein 4) Routine bowel care 5) Scaled weight this admit; subsequent weekly scaled weights Addendum: 08/25/22 at [address] Amended: Links added.
--- NOTE | 2022-08-25 09:44 | NUR ---
PATIENT HAS MET ALL CRITERIA FOR TRANSFER TO THE PCU FLOOR. VSS. DRESSINGS INTACT. BED LOW, CALL LIGHT PRESENT AND 2 RAILS UP. RN PRESENT TO ACCEPT CARE OF PATIENT AND REPORT HAS BEEN CALLED TO SAIRA RN. ALL QUESTIONS ANSWERED TO ACCEPTING RN.
[2022-08-25] MEDS: K and/or MAG REPLACEMENT MC SCH ×2 (11:11→20:00)
[2022-08-25] MEDS: docusate sod 100mg capsule PO SCH ×2 (11:45→20:25)
[2022-08-25] MEDS: linezolid 600mg tablet PO SCH ×2 (11:45→20:25)
[2022-08-25] MEDS: loratadine 10mg tablet PO SCH (11:46)
[2022-08-25] MEDS: lisinopril 20mg tablet PO SCH ×2 (11:46→20:24)
[2022-08-25] MEDS: metroNIDAZOLE 500mg tablet PO SCH ×3 (11:46→20:25)
[2022-08-25] MEDS: pregabalin 75mg capsule PO SCH ×3 (11:46→20:22)
[2022-08-25] MEDS: HYDROchlorothiazide 12.5mg capsule PO SCH ×2 (11:46→20:22)
[2022-08-25] MEDS: HYDROcodone/acetaminophen 10/325mg tab PO PRN ×3 (11:47→20:47)
--- NOTE | 2022-08-25 18:40 | NUR ---
Patient in room U 3028. I have received report from GARIMA CHÁVEZ and had the opportunity to ask questions and assume patient care. Addendum: 08/25/22 at 1840 by Shayna Breaux RN Amended: Links added.
[2022-08-25] MEDS: normal saline 1000ml 1,000 ML IV SCH (18:45)
--- NOTE | 2022-08-25 18:50 | NUR ---
Problems reprioritized. Patient report given, questions answered & plan of care reviewed with GARIMA Corral.
[2022-08-25] MEDS: quetiapine 100mg tablet PO SCH (20:25)
[2022-08-25] MEDS: atorvastatin 20mg tablet PO SCH (20:25)
[2022-08-25] MEDS: insulin glargine (Lantus) pen - multi-dose SQ SCH (21:00)
[2022-08-26 02:00] VITALS: BP 120/67
[2022-08-26] MEDS: normal saline 1000ml 1,000 ML IV SCH ×2 (04:35→18:47)
--- NOTE | 2022-08-26 05:27 | NUR ---
awoke skin care done repositioning and scant amt urine in inc of. barrier crean to renetta area for protection. pt tolerated well. used is with encouragement.
[2022-08-26 06:00] VITALS: BP 138/80
--- NOTE | 2022-08-26 06:23 | NUR ---
Problems reprioritized. Patient report given, questions answered & plan of care reviewed with Christiano Loredo. Addendum: 08/26/22 at 0624 by Shayna Breaux RN Amended: Links added.
[2022-08-26 06:28] LABS: ALANINE AMINOTRANSFERASE 19 U/L (12-78); ALBUMIN 2.4 G/DL (3.4-5.0); ALBUMIN/GLOBULIN RATIO 0.5 (1.1-1.5); ALKALINE PHOSPHATASE 89 IU/L (46-116); ANION GAP 7 (8-16); ASPARTATE AMINO TRANSFERASE 20 U/L (10-37); BILIRUBIN,TOTAL 0.3 MG/DL (0.1-1.0); BLOOD UREA NITROGEN 11 MG/DL (7-18); BUN/CREATININE RATIO 16.7 (6.6-38.0); CHLORIDE 97 MMOL/L (99-107); CREATININE 0.66 MG/DL (0.40-0.90); GLUCOSE 101 MG/DL (70-104); MAGNESIUM 1.7 MG/DL (1.5-2.4); PHOSPHORUS 4.2 MG/DL (2.3-4.5); POTASSIUM 4.2 MMOL/L (3.5-5.1); SODIUM 132 MMOL/L (135-145); TOTAL CARBON DIOXIDE 28.4 MMOL/L (24-32); TOTAL PROTEIN 7.5 G/DL (6.4-8.2); eGFR > 90 ML/MIN
[2022-08-26 07:53] LABS: BASOPHILS # (AUTO) 0.1 X10'3 (0-0.2); EOSINOPHILS # (AUTO) 0.2 X10'3 (0-0.9); EOSINOPHILS % (AUTO) 2.1 % (0-6); HEMATOCRIT 34.1 % (35.0-45.0); HEMOGLOBIN 11.9 g/dl (12.0-16.0); LYMPHOCYTES % (AUTO) 11.5 % (21-51); MEAN CORPUSCULAR HEMOGLOBIN 29.9 PG (27.0-31.0); MEAN CORPUSCULAR HGB CONC 34.8 g/dL (33.0-36.5); MEAN CORPUSCULAR VOLUME 85.7 FL (78-98); MEAN PLATELET VOLUME 6.5 FL (7.4-10.4); MONOCYTES # (AUTO) 0.7 X10'3 (0-0.9); MONOCYTES % (AUTO) 7.7 % (2-12); NEUTROPHILS # (AUTO) 7.1 X10'3 (1.8-7.7); NEUTROPHILS % (AUTO) 77.7 % (42-75); PLATELET COUNT 526 X10'3 (140-440); RED BLOOD COUNT 3.98 X10'6 (4.20-5.60); RED CELL DISTRIBUTION WIDTH 14.8 % (11.5-14.5); WHITE BLOOD COUNT 9.1 X10'3 (4.5-11.0)
[2022-08-26] MEDS: K and/or MAG REPLACEMENT MC SCH ×2 (08:00→20:00)
[2022-08-26] MEDS: CefTRIAXone 2gm/D5W 50ml BAG 50 ML IV SCH (08:35)
[2022-08-26] MEDS: enoxaparin 40mg/0.4ml syringe SUBCUT SCH (08:36)
[2022-08-26] MEDS: clopidogrel 75mg tablet PO SCH (08:36)
[2022-08-26] MEDS: linezolid 600mg tablet PO SCH (08:37)
[2022-08-26] MEDS: loratadine 10mg tablet PO SCH (08:37)
[2022-08-26] MEDS: lisinopril 20mg tablet PO SCH ×2 (08:37→21:40)
[2022-08-26] MEDS: HYDROchlorothiazide 12.5mg capsule PO SCH ×2 (08:37→21:41)
[2022-08-26] MEDS: docusate sod 100mg capsule PO SCH ×2 (08:38→21:41)
[2022-08-26] MEDS: pregabalin 75mg capsule PO SCH ×3 (08:38→21:42)
[2022-08-26] MEDS: metroNIDAZOLE 500mg tablet PO SCH ×3 (08:38→21:41)
[2022-08-26] MEDS: HYDROcodone/acetaminophen 10/325mg tab PO PRN ×3 (08:39→18:47)
[2022-08-26 11:00] VITALS: BP 128/64
[2022-08-26] MEDS: DAPTOmycin inj. 700 MG in normal saline 100ml IV soln 100 ML IV SCH (14:26)
[2022-08-26 15:00] VITALS: BP 147/79
[2022-08-26 18:00] VITALS: BP 130/74
--- NOTE | 2022-08-26 18:50 | NUR ---
Patient in room U 3028. I have received report from GARIMA COLEMAN and had the opportunity to ask questions and assume patient care. Addendum: 08/26/22 at 1850 by Shayna Breaux RN Amended: Links added.
[2022-08-26] MEDS: insulin glargine (Lantus) pen - multi-dose SQ SCH (21:00)
[2022-08-26] MEDS: atorvastatin 20mg tablet PO SCH (21:41)
[2022-08-26] MEDS: quetiapine 100mg tablet PO SCH (21:41)
[2022-08-26 22:00] VITALS: BP 146/67
--- NOTE | 2022-08-27 | NUR ---
pt appears comfortable resting without s&S of distress at this time.
[2022-08-27 02:20] VITALS: BP 119/61
[2022-08-27] MEDS: normal saline 1000ml 1,000 ML IV SCH (04:16)
--- NOTE | 2022-08-27 06:15 | NUR ---
SATS 88% PT PUT ON1 LN/C ENCOURAGED COUGHING DEEP BREATHING AND IS USE.
--- NOTE | 2022-08-27 06:52 | NUR ---
Problems reprioritized. Patient report given, questions answered & plan of care reviewed with GARIMA LOREDO. Addendum: 08/27/22 at 0652 by Shayna Breaux RN Amended: Links added.
[2022-08-27 06:56] VITALS: BP 120/57
[2022-08-27] MEDS: K and/or MAG REPLACEMENT MC SCH (07:35)
[2022-08-27] MEDS: pregabalin 75mg capsule PO SCH ×2 (07:41→13:08)
[2022-08-27] MEDS: HYDROchlorothiazide 12.5mg capsule PO SCH (07:41)
[2022-08-27] MEDS: docusate sod 100mg capsule PO SCH (07:41)
[2022-08-27] MEDS: loratadine 10mg tablet PO SCH (07:41)
[2022-08-27] MEDS: clopidogrel 75mg tablet PO SCH (07:41)
[2022-08-27] MEDS: metroNIDAZOLE 500mg tablet PO SCH ×2 (07:41→13:07)
[2022-08-27] MEDS: DAPTOmycin inj. 700 MG in normal saline 100ml IV soln 100 ML IV SCH (07:41)
[2022-08-27] MEDS: lisinopril 20mg tablet PO SCH (07:41)
[2022-08-27] MEDS: enoxaparin 40mg/0.4ml syringe SUBCUT SCH (07:42)
[2022-08-27] MEDS: CefTRIAXone 2gm/D5W 50ml BAG 50 ML IV SCH (10:08)
[2022-08-27 13:00] VITALS: BP 151/80
[2022-08-27] MEDS: HYDROcodone/acetaminophen 10/325mg tab PO PRN (13:10)
--- NOTE | 2022-08-27 13:56 | NUR ---
DIABETIC FOOT CARE EDUCATION PROVIDED BY WOUND CARE * Wash your feet daily with lukewarm water and soap. * Dry your feet well, especially between the toes. * Keep the skin moisturized with lotion, but do not apply it between the toes. * Check your feet for blisters, cuts or sores. * Use an emery board to shape your toenails even with the ends of your toes. * Change daily into clean, soft socks or stockings, not too big or too small. * Keep your feet warm and dry. * Preferably wear special padded socks and shoes that fit well. * Never walk barefoot indoors or outdoors. * Examine your shoes everyday for cracks, araceli, nails or anything that could hurt your feet. * Tell your doctor if you find any of these problems or have any concerns after examining your feet. Addendum: 08/27/22 at 1403 by Pricilla Penn RN Amended: Links added.
--- NOTE | 2022-08-27 14:54 | NUR ---
PT DISCHARGED IN STABLE CONDITION. LEFT FACILITY VIA EMS. PICC R UPPER ARM. ALL BELONGINGS IN HAND. REPORT CALLED TO TANI AT [facility]. ALL QUESTIONS ANSWERED. Addendum: 08/27/22 at 1503 by Susan Polk RN Amended: Links added.
== END 2022-08-27 14:45 | DRG 720 ==
LOC: ER 08:07 → ED HOLD 12:08 → PCU 3S 16:35
PROVIDERS: ADMIT Family Medicine; ATTEND Family Medicine
PROC: 0JBR0ZZ Excision of Left Foot Subcutaneous Tissue and Fascia, Open Approach (ICD-10-PCS; principal; 2022-08-25 08:10)
PROC: 02HV33Z Insertion of Infusion Device into Superior Vena Cava, Percutaneous Approach (ICD-10-PCS; 2022-08-27)
PROC: B548ZZA Ultrasonography of Superior Vena Cava, Guidance (ICD-10-PCS; 2022-08-27)
DX: A41.9 Sepsis, unspecified organism (principal); G61.0 Guillain-Barre syndrome; E11.42 Type 2 diabetes mellitus with diabetic polyneuropathy; E87.1 Hypo-osmolality and hyponatremia; M86.172 Other acute osteomyelitis, left ankle and foot; N39.0 Urinary tract infection, site not specified; L97.529 Non-pressure chronic ulcer of other part of left foot with unspecified severity; B96.20 Unspecified Escherichia coli [E. coli] as the cause of diseases classified elsewhere; L03.116 Cellulitis of left lower limb; E11.51 Type 2 diabetes mellitus with diabetic peripheral angiopathy without gangrene; Z20.822 Contact with and (suspected) exposure to COVID-19; E11.621 Type 2 diabetes mellitus with foot ulcer; E11.65 Type 2 diabetes mellitus with hyperglycemia; E11.69 Type 2 diabetes mellitus with other specified complication; E78.00 Pure hypercholesterolemia, unspecified; F17.200 Nicotine dependence, unspecified, uncomplicated; F32.A Depression, unspecified; F41.9 Anxiety disorder, unspecified; E66.9 Obesity, unspecified; G89.4 Chronic pain syndrome; L02.612 Cutaneous abscess of left foot; I10 Essential (primary) hypertension; J44.9 Chronic obstructive pulmonary disease, unspecified; I25.10 Atherosclerotic heart disease of native coronary artery without angina pectoris; M86.672 Other chronic osteomyelitis, left ankle and foot; Z79.02 Long term (current) use of antithrombotics/antiplatelets; Z79.899 Other long term (current) drug therapy; Z83.3 Family history of diabetes mellitus; Z87.442 Personal history of urinary calculi; Z89.431 Acquired absence of right foot; Z89.432 Acquired absence of left foot; Z88.0 Allergy status to penicillin; Z88.2 Allergy status to sulfonamides; Z88.8 Allergy status to other drugs, medicaments and biological substances; Z86.718 Personal history of other venous thrombosis and embolism; Z68.36 Body mass index [BMI] 36.0-36.9, adult; Z71.6 Tobacco abuse counseling
CPT/HCPCS: 36415; 36569; 71045; 73600; 73700; 73720; 76942; 80053; 80061; 81001; 82948; 83036; 83605; 83735; 84100; 84145; 85025; 85610; 85651; 85730; 87040; 87070; 87075; 87077; 87081; 87088; 87186; 87635; 87811; 93005; 93926; 94760; 96365; 97110; 97161; 97530; 99285; A4615; A4618; A4649; A6222; A6253; A6260; A6266; A6446; A6449; A7000; C1751; G0378; J0696; J0878; J1650; J1815; J1956; J2020; J2250; J2270; J2704; J3010; J3490; J7030; J7120

== ENCOUNTER 2022-11-15 11:10 | Inpatient (IN) | payer MEDICAID ==
[~2022-11-15] VITALS: Ht 177.8 cm; Wt 100.0 kg
[~2022-11-15 11:10] MED LIST changes: +LISI1TAB51 PO; -LISI1TAB53 PO; -OMEP20CA16 PO
[2022-11-15 16:05] LABS: BASOPHILS # (AUTO) 0.1 X10'3 (0-0.2); BASOPHILS % (AUTO) 0.7 % (0-1); EOSINOPHILS # (AUTO) 0.1 X10'3 (0-0.9); EOSINOPHILS % (AUTO) 1.5 % (0-6); HEMATOCRIT 36.3 % (35.0-45.0); HEMOGLOBIN 12.7 g/dl (12.0-16.0); LYMPHOCYTES # (AUTO) 1.7 X10'3 (1.1-4.8); LYMPHOCYTES % (AUTO) 18.3 % (21-51); MEAN CORPUSCULAR HEMOGLOBIN 29.9 PG (27.0-31.0); MEAN CORPUSCULAR HGB CONC 34.9 g/dL (33.0-36.5); MEAN CORPUSCULAR VOLUME 85.5 FL (78-98); MEAN PLATELET VOLUME 7.7 FL (7.4-10.4); MONOCYTES # (AUTO) 0.6 X10'3 (0-0.9); MONOCYTES % (AUTO) 6.2 % (2-12); NEUTROPHILS # (AUTO) 6.9 X10'3 (1.8-7.7); NEUTROPHILS % (AUTO) 73.3 % (42-75); PLATELET COUNT 370 X10'3 (140-440); RED BLOOD COUNT 4.25 X10'6 (4.20-5.60); RED CELL DISTRIBUTION WIDTH 15.7 % (11.5-14.5); WHITE BLOOD COUNT 9.4 X10'3 (4.5-11.0)
[2022-11-15 16:21] LABS: ALANINE AMINOTRANSFERASE 16 U/L (12-78); ALBUMIN 3.3 G/DL (3.4-5.0); ALBUMIN/GLOBULIN RATIO 0.7 (1.1-1.5); ALKALINE PHOSPHATASE 109 IU/L (46-116); ANION GAP 5 (8-16); ASPARTATE AMINO TRANSFERASE 21 U/L (10-37); BILIRUBIN,TOTAL 0.4 MG/DL (0.1-1.0); BLOOD UREA NITROGEN 9 MG/DL (7-18); BUN/CREATININE RATIO 12.9 (6.6-38.0); CALCIUM 9.1 MG/DL (8.5-10.1); CHLORIDE 88 MMOL/L (99-107); GLUCOSE 79 MG/DL (70-104); POTASSIUM 3.9 MMOL/L (3.5-5.1); SODIUM 125 MMOL/L (135-145); TOTAL CARBON DIOXIDE 32.3 MMOL/L (24-32); TOTAL PROTEIN 8.1 G/DL (6.4-8.2); eGFR 88 ML/MIN
[2022-11-15 16:30] LABS: C-REACTIVE PROTEIN 2.61 MG/DL (0.0-0.5)
[2022-11-15] MEDS ORDERED: ondansetron/PF 4mg/2ml inj IV PRN (16:40)
[2022-11-15] MEDS ORDERED: mag hydrox/Alum hydrox/simeth 30ml oral suspension PO PRN (16:40)
[2022-11-15] MEDS ORDERED: magnesium hydroxide 30ml (MOM) UD suspension PO PRN (16:40)
[2022-11-15] MEDS ORDERED: CefTRIAXone 2gm/D5W 50ml BAG 50 ML IV ONE (16:40)
[2022-11-15] MEDS ORDERED: acetaminophen 325mg tablet PO PRN (16:40)
[2022-11-15] MEDS ORDERED: magnesium Cl slow-release 64mg tablet PO PRN (16:40)
[2022-11-15] MEDS ORDERED: magnesium 4gm in 100ml NS 100 ML IV PRN (16:40)
[2022-11-15] MEDS ORDERED: morphine 2 MG/ML inj. syringe IV PRN ×2 (16:40)
[2022-11-15] MEDS ORDERED: potassium Cl 20 mEq SR tablet PO PRN ×2 (16:40)
[2022-11-15] MEDS ORDERED: potassium Cl 40MEQ/1/2NS 520ml 520 ML IV PRN (16:40)
[2022-11-15] MEDS ORDERED: ACET-1025 PO (17:04)
[2022-11-15] MEDS ORDERED: METF-436 PO (17:04)
[2022-11-15] MEDS ORDERED: CLOP75TA34 PO (17:04)
[2022-11-15] MEDS ORDERED: QUET200T PO (17:04)
[2022-11-15] MEDS ORDERED: ALBU18HF2 INH (17:04)
[2022-11-15] MEDS ORDERED: BACL20TA PO (17:04)
[2022-11-15] MEDS ORDERED: METH-798 PO (17:04)
[2022-11-15] MEDS ORDERED: SIMV40TA PO (17:04)
[2022-11-15] MEDS ORDERED: LISI1TAB53 PO (17:04)
[2022-11-15] MEDS ORDERED: PREG150C PO (17:04)
[2022-11-15] MEDS ORDERED: MUPI22OI30 TP (17:04)
[2022-11-15 17:10] LABS: MAGNESIUM 1.6 MG/DL (1.5-2.4)
[2022-11-15] MEDS: normal saline 1000ml 1,000 ML IV SCH (17:11)
[2022-11-15 19:00] VITALS: BP 118/64
[2022-11-15 19:15] LABS: HEMOGLOBIN A1C 6.4 % (4.5-6.2)
[2022-11-15] MEDS: K and/or MAG REPLACEMENT MC SCH (20:00)
[2022-11-15] MEDS: docusate sod 100mg capsule PO SCH (21:01)
[2022-11-15] MEDS: linezolid 600mg/300ml PREMIX 300 ML IV SCH (21:01)
[2022-11-15] MEDS: enoxaparin 30mg/0.3ml syringe SQ SCH (21:02)
[2022-11-15 22:00] VITALS: BP 134/73
[2022-11-16] MEDS: normal saline 1000ml 1,000 ML IV SCH ×5 (02:40→22:40)
--- NOTE | 2022-11-16 06:20 | NUR ---
Problems reprioritized. Patient report given, questions answered & plan of care reviewed with Yudy PAINTING. Addendum: 11/16/22 at 0621 by Misti Welch RN Amended: Links added.
[2022-11-16 06:42] VITALS: BP 141/79
[2022-11-16 06:42] LABS: BASOPHILS # (AUTO) 0.1 X10'3 (0-0.2); BASOPHILS % (AUTO) 0.8 % (0-1); EOSINOPHILS # (AUTO) 0.2 X10'3 (0-0.9); HEMATOCRIT 37.2 % (35.0-45.0); LYMPHOCYTES # (AUTO) 1.3 X10'3 (1.1-4.8); LYMPHOCYTES % (AUTO) 13.4 % (21-51); MEAN CORPUSCULAR HEMOGLOBIN 29.8 PG (27.0-31.0); MEAN CORPUSCULAR HGB CONC 34.8 g/dL (33.0-36.5); MEAN CORPUSCULAR VOLUME 85.6 FL (78-98); MEAN PLATELET VOLUME 7.9 FL (7.4-10.4); MONOCYTES # (AUTO) 0.7 X10'3 (0-0.9); MONOCYTES % (AUTO) 6.9 % (2-12); NEUTROPHILS # (AUTO) 7.3 X10'3 (1.8-7.7); NEUTROPHILS % (AUTO) 76.9 % (42-75); PLATELET COUNT 347 X10'3 (140-440); RED BLOOD COUNT 4.35 X10'6 (4.20-5.60); RED CELL DISTRIBUTION WIDTH 15.8 % (11.5-14.5); WHITE BLOOD COUNT 9.5 X10'3 (4.5-11.0)
[2022-11-16 06:53] LABS: ANION GAP 9 (8-16); BLOOD UREA NITROGEN 8 MG/DL (7-18); BUN/CREATININE RATIO 11.4 (6.6-38.0); CHLORIDE 91 MMOL/L (99-107); GLUCOSE 129 MG/DL (70-104); MAGNESIUM 1.5 MG/DL (1.5-2.4); SODIUM 129 MMOL/L (135-145); TOTAL CARBON DIOXIDE 29.1 MMOL/L (24-32); eGFR 88 ML/MIN
[2022-11-16] MEDS: K and/or MAG REPLACEMENT MC SCH ×2 (08:00→19:34)
[2022-11-16] MEDS: CefTRIAXone 2gm/D5W 50ml BAG 50 ML IV SCH (08:12)
[2022-11-16] MEDS: enoxaparin 30mg/0.3ml syringe SQ SCH ×2 (08:12→20:07)
[2022-11-16] MEDS: docusate sod 100mg capsule PO SCH ×2 (08:12→20:07)
[2022-11-16] MEDS: linezolid 600mg/300ml PREMIX 300 ML IV SCH (08:50)
[2022-11-16 10:00] VITALS: BP 141/65
--- NOTE | 2022-11-16 12:15 | NUR ---
DM consult: Pt with T2DM, well controlled with A1c 6.4%, down from 6.6% 08/21/22 per EMR. DM education not warranted at this time. Noted pt receiving IV Zyvox. Pt seen at bedside provided with verbal low tyramine nutrition therapy education. Pt denied questions or written handout as pt remembered it from previous admit in August of this year. Pt reports a low appetite but denies food preferences or food allergies, currently documented with 75% PO intake of first meal. Pt reports difficulty chewing and agrees to soft to chew chopped food, d/w dietary. Per pt LBM this morning. Will continue to follow. Addendum: 11/16/22 at [address] Amended: Links added.
[2022-11-16] MEDS: metroNIDAZOLE-Flagyl 500mg/NS 100 ML IV SCH ×2 (13:17→20:07)
[2022-11-16] MEDS ORDERED: mupirocin 2% ointment 22GM TP PRN (16:30)
[2022-11-16] MEDS: metFORMIN 500mg tablet PO SCH (16:55)
[2022-11-16] MEDS ORDERED: albuterol 2.5 MG/3 ML nebule NEB PRN (17:35)
[2022-11-16] MEDS ORDERED: acetaminophen 325mg tablet PO PRN (17:40)
[2022-11-16 18:00] VITALS: BP 173/87
--- NOTE | 2022-11-16 18:30 | NUR ---
Report given to Misti PAINTING, patient resting well in bed eating dinner at this time.
[2022-11-16] MEDS: atorvastatin 20mg tablet PO SCH (20:07)
[2022-11-16] MEDS: pregabalin 75mg capsule PO SCH (20:07)
[2022-11-16] MEDS: cyclobenzaprine 10mg tablet PO SCH (20:08)
[2022-11-16] MEDS: quetiapine 100mg tablet PO PRN (20:12)
[2022-11-16 22:00] VITALS: BP 124/66
[2022-11-17] MEDS: metroNIDAZOLE-Flagyl 500mg/NS 100 ML IV SCH ×3 (04:44→20:31)
--- NOTE | 2022-11-17 06:30 | NUR ---
Problems reprioritized. Patient report given, questions answered & plan of care reviewed with Ayaka PAINTING. Addendum: 11/17/22 at 0630 by Misti Welch RN Amended: Links added.
[2022-11-17 07:08] LABS: BASOPHILS % (AUTO) 0.6 % (0-1); EOSINOPHILS # (AUTO) 0.1 X10'3 (0-0.9); EOSINOPHILS % (AUTO) 1.9 % (0-6); HEMATOCRIT 36.2 % (35.0-45.0); HEMOGLOBIN 12.8 g/dl (12.0-16.0); LYMPHOCYTES # (AUTO) 0.9 X10'3 (1.1-4.8); LYMPHOCYTES % (AUTO) 11.3 % (21-51); MEAN CORPUSCULAR HEMOGLOBIN 29.9 PG (27.0-31.0); MEAN CORPUSCULAR HGB CONC 35.2 g/dL (33.0-36.5); MEAN CORPUSCULAR VOLUME 84.9 FL (78-98); MEAN PLATELET VOLUME 7.5 FL (7.4-10.4); MONOCYTES # (AUTO) 0.6 X10'3 (0-0.9); MONOCYTES % (AUTO) 7.8 % (2-12); NEUTROPHILS # (AUTO) 6.2 X10'3 (1.8-7.7); NEUTROPHILS % (AUTO) 78.4 % (42-75); PLATELET COUNT 308 X10'3 (140-440); RED BLOOD COUNT 4.27 X10'6 (4.20-5.60); RED CELL DISTRIBUTION WIDTH 15.5 % (11.5-14.5)
[2022-11-17] MEDS: K and/or MAG REPLACEMENT MC SCH ×2 (08:00→20:00)
[2022-11-17 08:01] LABS: ALBUMIN 3.1 G/DL (3.4-5.0); ANION GAP 7 (8-16); BLOOD UREA NITROGEN 6 MG/DL (7-18); BUN/CREATININE RATIO 9.2 (6.6-38.0); CALCIUM 8.8 MG/DL (8.5-10.1); CHLORIDE 95 MMOL/L (99-107); CREATININE 0.65 MG/DL (0.40-0.90); GLUCOSE 127 MG/DL (70-104); MAGNESIUM 1.7 MG/DL (1.5-2.4); SODIUM 132 MMOL/L (135-145); eGFR > 90 ML/MIN
[2022-11-17] MEDS: normal saline 1000ml 1,000 ML IV SCH ×2 (08:40→20:31)
[2022-11-17 10:00] VITALS: BP 146/67
[2022-11-17] MEDS: enoxaparin 30mg/0.3ml syringe SQ SCH ×2 (10:00→20:32)
[2022-11-17] MEDS: clopidogrel 75mg tablet PO SCH (10:01)
[2022-11-17] MEDS: lisinopril 20mg tablet PO SCH (10:01)
[2022-11-17] MEDS: docusate sod 100mg capsule PO SCH ×2 (10:02→20:31)
[2022-11-17] MEDS: pregabalin 75mg capsule PO SCH ×3 (10:02→20:42)
[2022-11-17] MEDS: metFORMIN 500mg tablet PO SCH ×2 (10:02→16:14)
[2022-11-17] MEDS: HYDROchlorothiazide 25mg tablet PO SCH (10:02)
[2022-11-17] MEDS: cyclobenzaprine 10mg tablet PO SCH ×3 (10:02→20:42)
[2022-11-17] MEDS: CefTRIAXone 2gm/D5W 50ml BAG 50 ML IV SCH (10:03)
[2022-11-17 19:15] VITALS: BP 152/84
[2022-11-17] MEDS: atorvastatin 20mg tablet PO SCH (20:42)
[2022-11-17] MEDS: baclofen 10mg tablet PO PRN (20:42)
[2022-11-17] MEDS: quetiapine 100mg tablet PO PRN (21:16)
[2022-11-17 23:00] VITALS: BP 131/60
[2022-11-18] MEDS: metroNIDAZOLE-Flagyl 500mg/NS 100 ML IV SCH ×3 (04:47→21:26)
[2022-11-18] MEDS: normal saline 1000ml 1,000 ML IV SCH (04:48)
[2022-11-18 06:00] VITALS: BP 130/76
[2022-11-18 06:15] LABS: HEMOGLOBIN 12.5 g/dl (12.0-16.0); MONOCYTES # (AUTO) 0.5 X10'3 (0-0.9); WHITE BLOOD COUNT 8.1 X10'3 (4.5-11.0)
[2022-11-18 06:19] LABS: BASOPHILS % (AUTO) 0.6 % (0-1); EOSINOPHILS # (AUTO) 0.2 X10'3 (0-0.9); EOSINOPHILS % (AUTO) 2.6 % (0-6); HEMATOCRIT 36.9 % (35.0-45.0); LYMPHOCYTES # (AUTO) 1.5 X10'3 (1.1-4.8); LYMPHOCYTES % (AUTO) 18.1 % (21-51); MEAN CORPUSCULAR HGB CONC 33.8 g/dL (33.0-36.5); MEAN CORPUSCULAR VOLUME 85.7 FL (78-98); MEAN PLATELET VOLUME 7.9 FL (7.4-10.4); MONOCYTES % (AUTO) 6.7 % (2-12); NEUTROPHILS # (AUTO) 5.8 X10'3 (1.8-7.7); PLATELET COUNT 310 X10'3 (140-440); RED BLOOD COUNT 4.31 X10'6 (4.20-5.60); RED CELL DISTRIBUTION WIDTH 15.5 % (11.5-14.5)
--- NOTE | 2022-11-18 06:28 | NUR ---
Problems reprioritized. Patient report given, questions answered & plan of care reviewed with Ayaka. Addendum: 11/18/22 at 0629 by Rick Klein RN Amended: Links added.
[2022-11-18 06:34] LABS: ALBUMIN 2.9 G/DL (3.4-5.0); ANION GAP 9 (8-16); BLOOD UREA NITROGEN 8 MG/DL (7-18); BUN/CREATININE RATIO 12.5 (6.6-38.0); CALCIUM 8.6 MG/DL (8.5-10.1); CHLORIDE 92 MMOL/L (99-107); CREATININE 0.64 MG/DL (0.40-0.90); GLUCOSE 93 MG/DL (70-104); MAGNESIUM 1.6 MG/DL (1.5-2.4); POTASSIUM 3.9 MMOL/L (3.5-5.1); SODIUM 127 MMOL/L (135-145); eGFR > 90 ML/MIN
[2022-11-18] MEDS: enoxaparin 30mg/0.3ml syringe SQ SCH ×2 (08:00→21:27)
[2022-11-18] MEDS: clopidogrel 75mg tablet PO SCH (08:00)
[2022-11-18] MEDS: K and/or MAG REPLACEMENT MC SCH ×2 (08:00→20:00)
[2022-11-18] MEDS: cyclobenzaprine 10mg tablet PO SCH ×3 (09:46→21:27)
[2022-11-18] MEDS: baclofen 10mg tablet PO PRN ×2 (09:46→21:33)
[2022-11-18] MEDS: CefTRIAXone 2gm/D5W 50ml BAG 50 ML IV SCH (09:46)
[2022-11-18] MEDS: docusate sod 100mg capsule PO SCH ×2 (09:47→20:00)
[2022-11-18] MEDS: HYDROchlorothiazide 25mg tablet PO SCH (09:47)
[2022-11-18] MEDS: metFORMIN 500mg tablet PO SCH ×2 (09:47→17:30)
[2022-11-18] MEDS: pregabalin 75mg capsule PO SCH ×3 (09:47→21:27)
[2022-11-18] MEDS: lisinopril 20mg tablet PO SCH (09:48)
[2022-11-18 10:00] VITALS: BP 133/83
[2022-11-18 19:00] VITALS: BP 111/57
[2022-11-18] MEDS: atorvastatin 20mg tablet PO SCH (21:27)
[2022-11-18] MEDS: quetiapine 100mg tablet PO PRN (21:27)
[2022-11-18 22:00] VITALS: BP 111/57
[2022-11-19] VITALS (13 sets, daily range): BP systolic 114–152; BP diastolic 63–78
[2022-11-19] MEDS: metroNIDAZOLE-Flagyl 500mg/NS 100 ML IV SCH (04:51)
[2022-11-19 06:29] LABS: BASOPHILS # (AUTO) 0.1 X10'3 (0-0.2); BASOPHILS % (AUTO) 0.8 % (0-1); EOSINOPHILS # (AUTO) 0.2 X10'3 (0-0.9); EOSINOPHILS % (AUTO) 2.4 % (0-6); HEMATOCRIT 38.2 % (35.0-45.0); LYMPHOCYTES # (AUTO) 1.4 X10'3 (1.1-4.8); LYMPHOCYTES % (AUTO) 18.7 % (21-51); MEAN CORPUSCULAR HEMOGLOBIN 29.7 PG (27.0-31.0); MEAN CORPUSCULAR HGB CONC 33.9 g/dL (33.0-36.5); MEAN CORPUSCULAR VOLUME 87.7 FL (78-98); MEAN PLATELET VOLUME 7.8 FL (7.4-10.4); MONOCYTES # (AUTO) 0.6 X10'3 (0-0.9); MONOCYTES % (AUTO) 7.5 % (2-12); NEUTROPHILS # (AUTO) 5.5 X10'3 (1.8-7.7); NEUTROPHILS % (AUTO) 70.6 % (42-75); PLATELET COUNT 292 X10'3 (140-440); RED BLOOD COUNT 4.36 X10'6 (4.20-5.60); RED CELL DISTRIBUTION WIDTH 15.3 % (11.5-14.5); WHITE BLOOD COUNT 7.7 X10'3 (4.5-11.0)
--- NOTE | 2022-11-19 06:30 | NUR ---
Problems reprioritized. Patient report given, questions answered & plan of care reviewed with JUSTINE. Addendum: 11/19/22 at 0644 by Rick Klein RN Amended: Links added.
[2022-11-19] MEDS: metFORMIN 500mg tablet PO SCH ×2 (07:30→13:37)
[2022-11-19] MEDS: CefTRIAXone 2gm/D5W 50ml BAG 50 ML IV SCH (07:52)
[2022-11-19] MEDS: cyclobenzaprine 10mg tablet PO SCH ×2 (08:00→13:37)
[2022-11-19] MEDS: pregabalin 75mg capsule PO SCH ×2 (08:00→13:37)
[2022-11-19] MEDS: docusate sod 100mg capsule PO SCH (08:00)
[2022-11-19] MEDS: enoxaparin 30mg/0.3ml syringe SQ SCH (08:00)
[2022-11-19 08:33] LABS: ALBUMIN 2.8 G/DL (3.4-5.0); ANION GAP 11 (8-16); BLOOD UREA NITROGEN 11 MG/DL (7-18); BUN/CREATININE RATIO 15.1 (6.6-38.0); CALCIUM 8.4 MG/DL (8.5-10.1); CHLORIDE 97 MMOL/L (99-107); CREATININE 0.73 MG/DL (0.40-0.90); GLUCOSE 88 MG/DL (70-104); MAGNESIUM 1.5 MG/DL (1.5-2.4); SODIUM 133 MMOL/L (135-145); eGFR 83 ML/MIN
--- NOTE | 2022-11-19 08:49 | NUR ---
Initial: pt admitted w/ Acute on chronic osteomyelitis of the left foot/ankle per EMR. Currently on Carb control diet w/ mostly 100% intake of meals meeting est needs at this time. LBM 11/16 receiving routine colace. No nutrition intervention implemented at this time, will continue to monitor. Recs: 1. Continue Carb control diet as tolerated; soft/chopped per pt request 2. Bowel care per rx 3. Scaled wts Addendum: 11/19/22 at [address] Amended: Links added.
[2022-11-19] MEDS ORDERED: vancomycin 1,000mg inj ONE (09:35)
[2022-11-19] MEDS ORDERED: ondansetron/PF 4mg/2ml inj IV PRN (09:35)
[2022-11-19] MEDS ORDERED: proCHLORperazine 10 MG/2 ml inj IV PRN (09:35)
[2022-11-19] MEDS ORDERED: morphine 4 MG/ML inj SYRINge IV PRN (09:35)
[2022-11-19] MEDS ORDERED: morphine 2 MG/ML inj. syringe IV PRN (09:35)
[2022-11-19] MEDS ORDERED: meperidine/PF 25mg/ml syringe IV PRN ×3 (09:35)
[2022-11-19] MEDS ORDERED: ringers solution, lacted 1,000 ML IV SCH (09:35)
[2022-11-19] MEDS ORDERED: BUPIVAcaine 0.5% inj/PF 30 ML ONE (09:35)
[2022-11-19] MEDS ORDERED: sevoflurane 250ml liquid IH ONE (10:00)
[2022-11-19] MEDS ORDERED: FENTANYL CITRATE/PF 50 MCG/1 ML VIAL ONE (10:03)
[2022-11-19] MEDS ORDERED: midazolam 1 mg/ML 2ml injection ONE (10:06)
[2022-11-19] MEDS ORDERED: BUPIVAcaine 0.5% inj/PF 30 ml vial IJ ONE (10:20)
[2022-11-19] MEDS ORDERED: dexamethasone sod phosphate 4mg/ml inj. ONE (10:26)
[2022-11-19] MEDS ORDERED: ondansetron/PF 4mg/2ml inj ONE (10:26)
[2022-11-19] MEDS ORDERED: propofol inj 20 ML IV ONE (10:26)
--- NOTE | 2022-11-19 10:35 | NUR ---
Received from OR via BED, accompanied by Anesthesiologist and report given by TERE Anesthesiologist. PATIENT WAKING UP, NO S/S OF PAIN, V/S WNL, 20G TO LAC, LEFT FOOT KAT WRAP DRESSING C/D/I. Addendum: 11/19/22 at 1057 by Suman Herzog RN Amended: Links added.
[2022-11-19] MEDS ORDERED: METR-159 PO (10:55)
[2022-11-19] MEDS ORDERED: LEVO750T68 PO (10:55)
--- NOTE | 2022-11-19 11:25 | NUR ---
PATIENT HAS MET ALL CRITERIA FOR TRANSFER TO THE SURGICAL FLOOR. VSS. DRESSINGS INTACT. BED LOW, CALL LIGHT PRESENT AND 2 RAILS UP. RN PRESENT TO ACCEPT CARE OF PATIENT AND REPORT HAS BEEN CALLED. ALL QUESTIONS ANSWERED TO ACCEPTING RN. Addendum: 11/19/22 at 1139 by Suman Herzog RN Amended: Links added.
[2022-11-19] MEDS: clopidogrel 75mg tablet PO SCH (13:37)
== END 2022-11-19 14:31 | disposition home or self-care (01) | DRG 344 ==
LOC: ER 11:14 → ED HOLD 16:41 → EDBEDREQ 17:23 → SUR 3N 18:59
PROVIDERS: ADMIT Family Medicine; ATTEND Family Medicine
PROC: 0S9G3ZZ Drainage of Left Ankle Joint, Percutaneous Approach (ICD-10-PCS; 2022-11-15)
PROC: 0Y9L0ZZ Drainage of Left Ankle Region, Open Approach (ICD-10-PCS; 2022-11-19)
PROC: 0QBM0ZX Excision of Left Tarsal, Open Approach, Diagnostic (ICD-10-PCS; principal; 2022-11-19 10:00)
DX: E11.69 Type 2 diabetes mellitus with other specified complication (principal); M86.172 Other acute osteomyelitis, left ankle and foot; E11.42 Type 2 diabetes mellitus with diabetic polyneuropathy; E87.1 Hypo-osmolality and hyponatremia; M86.672 Other chronic osteomyelitis, left ankle and foot; E66.9 Obesity, unspecified; E78.00 Pure hypercholesterolemia, unspecified; F17.210 Nicotine dependence, cigarettes, uncomplicated; F32.A Depression, unspecified; F41.9 Anxiety disorder, unspecified; J44.9 Chronic obstructive pulmonary disease, unspecified; I25.10 Atherosclerotic heart disease of native coronary artery without angina pectoris; I10 Essential (primary) hypertension; Z83.3 Family history of diabetes mellitus; Z87.442 Personal history of urinary calculi; Z88.0 Allergy status to penicillin; Z88.1 Allergy status to other antibiotic agents; Z88.2 Allergy status to sulfonamides; Z68.31 Body mass index [BMI] 31.0-31.9, adult; Z88.8 Allergy status to other drugs, medicaments and biological substances; Z86.718 Personal history of other venous thrombosis and embolism; Z87.440 Personal history of urinary (tract) infections; Z79.899 Other long term (current) drug therapy; Z71.6 Tobacco abuse counseling
CPT/HCPCS: 36415; 80048; 80053; 82948; 83036; 83605; 83735; 84145; 85025; 85651; 86140; 87040; 87070; 87075; 87077; 87081; 87102; 87186; 93005; 94760; 99285; A4615; A4618; A6223; A6446; A6449; A7000; G0378; J0696; J1100; J1650; J2020; J2250; J2270; J2405; J2704; J3010; J3370; J3490; J7030; J7120; S0020

== ENCOUNTER 2023-12-06 11:22 | Inpatient (IN) | payer MEDICAID ==
[~2023-12-06] VITALS: Ht 172.7 cm; Wt 108.3 kg
[~2023-12-06 11:22] MED LIST changes: +ACET-1025 PO; +ALBU18HF2 INH; -ALBU8HFA PO; +BACL20TA PO; -BACL20TA2 PO; -CLOP75TA15 PO; +CLOP75TA34 PO; +LIDO1ADH58; -LISI1TAB51 PO; +LISI1TAB53 PO; -LORA10TA7 PO; -METF-1203 PO; +METF-436 PO; +MUPI22OI30 TP; +PREG150C PO; -PREG150C46 PO; +QUET200T PO; -QUET200T31 PO; +SIMV-343 PO; -SIMV-45 PO
[2023-12-06 12:43] LABS: BASOPHILS % (AUTO) 0.3 % (0-1); EOSINOPHILS % (AUTO) 0.1 % (0-6); HEMATOCRIT 40.7 % (35.0-45.0); HEMOGLOBIN 14.1 g/dl (12.0-16.0); LYMPHOCYTES # (AUTO) 0.5 X10'3 (1.1-4.8); LYMPHOCYTES % (AUTO) 4.1 % (21-51); MEAN CORPUSCULAR HEMOGLOBIN 29.9 PG (27.0-31.0); MEAN CORPUSCULAR HGB CONC 34.6 g/dL (33.0-36.5); MEAN CORPUSCULAR VOLUME 86.5 FL (78-98); MEAN PLATELET VOLUME 8.2 FL (7.4-10.4); MONOCYTES # (AUTO) 0.6 X10'3 (0-0.9); MONOCYTES % (AUTO) 4.6 % (2-12); NEUTROPHILS # (AUTO) 10.9 X10'3 (1.8-7.7); NEUTROPHILS % (AUTO) 90.9 % (42-75); PLATELET COUNT 241 X10'3 (140-440); RED BLOOD COUNT 4.71 X10'6 (4.20-5.60); RED CELL DISTRIBUTION WIDTH 13.7 % (11.5-14.5)
[2023-12-06 13:00] LABS: BILIRUBIN,URINE NEGATIVE (Neg); CLARITY,URINE CLEAR (Clear); COLOR,URINE YELLOW (Yellow); GLUCOSE, URINE NEGATIVE (Neg); KETONES,URINE NEGATIVE (Neg); LEUKOCYTE ESTERASE ,URINE NEGATIVE (Neg); NITRITES, URINE NEGATIVE (Neg); OCCULT BLOOD,URINE NEGATIVE (Neg); PROTEIN,URINE TRACE mg/dl (Neg); UROBILINOGEN,URINE 0.2 E.U/dL (0.2-1.0)
[2023-12-06 13:01] LABS: UA COLLECTION TYPE CLN CATCH MIDSTREAM
[2023-12-06 13:06] LABS: BACTERIA,URINE FEW /HPF (Neg); HYALINE CASTS 0-3 /LPF (NEGATIVE); MUCUS STRANDS NONE SEEN /LPF (Neg); RBC,URINE 0-2 /HPF (0-2); SQUAMOUS EPITHELIAL CELL,UR MANY /LPF (FEW); WBC,URINE 0-4 /HPF (0-4)
[2023-12-06 13:21] LABS: ALANINE AMINOTRANSFERASE 18 U/L (12-78); ALBUMIN 3.7 G/DL (3.4-5.0); ALBUMIN/GLOBULIN RATIO 0.8 (1.1-1.5); ALKALINE PHOSPHATASE 98 IU/L (46-116); ANION GAP 9 (8-16); ASPARTATE AMINO TRANSFERASE 21 U/L (10-37); BILIRUBIN,TOTAL 0.6 MG/DL (0.1-1.0); BLOOD UREA NITROGEN 12 MG/DL (7-18); BUN/CREATININE RATIO 16.9 (10.0-20.0); CALCIUM 9.4 MG/DL (8.5-10.1); CHLORIDE 93 MMOL/L (99-107); CREATININE 0.71 MG/DL (0.40-0.90); GLUCOSE 96 MG/DL (70-104); POTASSIUM 3.7 MMOL/L (3.5-5.1); SODIUM 129 MMOL/L (135-145); TOTAL CARBON DIOXIDE 26.6 MMOL/L (24-32); TOTAL PROTEIN 8.5 G/DL (6.4-8.2); eCRCL 91 ML/MIN; eGFR 86 ML/MIN
[2023-12-06] MEDS ORDERED: glucagon, human recombinant 1mg kit SUBCUT PRN (17:30)
[2023-12-06] MEDS ORDERED: dextrose 50%-water 50ml dispensing syringe IV PRN ×2 (17:30)
[2023-12-06] MEDS ORDERED: mag hydrox/Alum hydrox/simeth 30ml oral suspension PO PRN (17:30)
[2023-12-06] MEDS ORDERED: magnesium hydroxide 30ml (MOM) UD suspension PO PRN (17:30)
[2023-12-06] MEDS ORDERED: magnesium 4gm in 100ml NS 100 ML IV PRN (17:30)
[2023-12-06] MEDS ORDERED: potassium Cl 40MEQ/1/2NS 520ml 520 ML IV PRN (17:30)
[2023-12-06] MEDS ORDERED: insulin Lispro (HumaLOG) vial - multi-dose SQ SCH (17:30)
[2023-12-06] MEDS ORDERED: magnesium 2GM in 50ml NS 50 ML IV PRN (17:30)
[2023-12-06] MEDS ORDERED: HYDROcodone/acetaminophen 5mg/325mg tablet PO PRN (17:30)
[2023-12-06] MEDS ORDERED: acetaminophen 325mg tablet PO PRN (17:30)
[2023-12-06] MEDS ORDERED: ondansetron/PF 4mg/2ml inj IV PRN (17:30)
[2023-12-06] MEDS ORDERED: potassium Cl 20 mEq SR tablet PO PRN ×2 (17:30)
[2023-12-06] MEDS ORDERED: DEXTROSE 15 GM of carb/4 tabs (each vial/BOTTLE has 4 tablets) PO PRN ×2 (17:30)
[2023-12-06] MEDS ORDERED: morphine 2 MG/ML inj. syringe IV PRN (17:30)
[2023-12-06] MEDS ORDERED: MESSAGE TO PHARMACY PO ONE (17:30)
[2023-12-06] MEDS ORDERED: HYDROcodone/acetaminophen 10/325mg tab PO PRN (17:30)
[2023-12-06] MEDS ORDERED: magnesium Cl slow-release 64mg tablet PO PRN (17:30)
[2023-12-06] MEDS ORDERED: hydrALAZINE 20mg/ml inj. IV PRN (17:40)
[2023-12-06] MEDS ORDERED: metoprolol tartrate 1mg/ml inj IV ONE (17:40)
[2023-12-06] MEDS ORDERED: DOXY100T2 PO (19:58)
[2023-12-06] MEDS ORDERED: LISI1TAB51 PO (19:58)
[2023-12-06 20:00] VITALS: BP 120/85; PULSE 105; RESP 16; RESP 18; TEMP 98.5; O2SAT 95; O2SAT 98
[2023-12-06] MEDS: docusate sod 100mg capsule PO SCH (20:00)
[2023-12-06] MEDS: K and/or MAG REPLACEMENT MC SCH (20:00)
[2023-12-06] MEDS: vancomycin/NS 1 GM ADD-VANTAGE 250 ML IV SCH (20:05)
[2023-12-06] MEDS: normal saline 1000ml 1,000 ML IV SCH (20:09)
[2023-12-06] MEDS: insulin glargine (Lantus) pen - multi-dose SQ SCH (21:00)
[2023-12-06 22:00] VITALS: BP 150/76; PULSE 100; RESP 16; TEMP 101.3; O2SAT 95
[2023-12-07] VITALS (7 sets, daily range): BP systolic 133–146; BP diastolic 58–72; PULSE 84–99; RESP 14–18; TEMP 97.6–99.4; O2SAT 90–95
[2023-12-07] MEDS ORDERED: piperacillin/tazo 3.375gm/50ml 50 ML IV SCH
[2023-12-07] MEDS: pregabalin 75mg capsule PO SCH ×6 (00:43→21:00)
[2023-12-07] MEDS: QUEtiapine 25mg tablet PO PRN ×2 (00:49→20:51)
[2023-12-07] MEDS: cefepime 2g/NS 100ml ADVANTAGE 100 ML IV SCH ×3 (01:06→16:36)
[2023-12-07] MEDS: vancomycin/NS 1 GM ADD-VANTAGE 250 ML IV SCH ×3 (03:31→20:08)
[2023-12-07] MEDS: normal saline 1000ml 1,000 ML IV SCH ×3 (03:32→19:28)
[2023-12-07 06:52] LABS: BASOPHILS % (AUTO) 0.5 % (0-1); EOSINOPHILS % (AUTO) 0.2 % (0-6); HEMATOCRIT 37.8 % (35.0-45.0); MEAN CORPUSCULAR HEMOGLOBIN 29.8 PG (27.0-31.0); MEAN CORPUSCULAR HGB CONC 34.4 g/dL (33.0-36.5); MEAN CORPUSCULAR VOLUME 86.8 FL (78-98); MEAN PLATELET VOLUME 8.3 FL (7.4-10.4); MONOCYTES # (AUTO) 0.7 X10'3 (0-0.9); MONOCYTES % (AUTO) 9.5 % (2-12); NEUTROPHILS # (AUTO) 5.5 X10'3 (1.8-7.7); NEUTROPHILS % (AUTO) 75.8 % (42-75); PLATELET COUNT 232 X10'3 (140-440); RED BLOOD COUNT 4.36 X10'6 (4.20-5.60); RED CELL DISTRIBUTION WIDTH 13.4 % (11.5-14.5); WHITE BLOOD COUNT 7.2 X10'3 (4.5-11.0)
[2023-12-07 07:10] LABS: ALANINE AMINOTRANSFERASE 19 U/L (12-78); ALBUMIN 3.1 G/DL (3.4-5.0); ALBUMIN/GLOBULIN RATIO 0.7 (1.1-1.5); ALKALINE PHOSPHATASE 82 IU/L (46-116); ANION GAP 8 (8-16); ASPARTATE AMINO TRANSFERASE 19 U/L (10-37); BILIRUBIN,TOTAL 0.5 MG/DL (0.1-1.0); BLOOD UREA NITROGEN 11 MG/DL (7-18); BUN/CREATININE RATIO 16.4 (10.0-20.0); CALCIUM 8.9 MG/DL (8.5-10.1); CHLORIDE 97 MMOL/L (99-107); CHOL/HDL RATIO 5.8 (0.00-4.99); CHOLESTEROL 193 MG/DL (0-200); CREATININE 0.67 MG/DL (0.40-0.90); GLUCOSE 126 MG/DL (70-104); HDL CHOLESTEROL 33 MG/DL (35-60); LDL CHOLESTEROL 117 MG/DL (50-100); MAGNESIUM 1.9 MG/DL (1.5-2.4); POTASSIUM 3.7 MMOL/L (3.5-5.1); SODIUM 132 MMOL/L (135-145); TOTAL CARBON DIOXIDE 27.2 MMOL/L (24-32); TOTAL PROTEIN 7.5 G/DL (6.4-8.2); TRIGLYCERIDES 131 MG/DL (20-135); eCRCL 97 ML/MIN; eGFR > 90 ML/MIN
[2023-12-07] MEDS: docusate sod 100mg capsule PO SCH ×2 (07:41→20:00)
[2023-12-07] MEDS: enoxaparin 40mg/0.4ml syringe SUBCUT SCH (07:46)
[2023-12-07] MEDS: K and/or MAG REPLACEMENT MC SCH ×2 (08:00→20:00)
[2023-12-07] MEDS ORDERED: CefTRIAXone/D5W-Rocephin 1gm 50 ML IV SCH (08:00)
[2023-12-07] MEDS ORDERED: mupirocin 2% ointment 22GM TP PRN (10:00)
[2023-12-07] MEDS ORDERED: acetaminophen 325mg tablet PO PRN (10:20)
[2023-12-07] MEDS ORDERED: quetiapine 100mg tablet PO PRN (10:20)
[2023-12-07] MEDS ORDERED: albuterol 2.5 MG/3 ML nebule NEB PRN (10:20)
[2023-12-07] MEDS ORDERED: baclofen 10mg tablet PO PRN (10:20)
[2023-12-07] MEDS: clopidogrel 75mg tablet PO SCH (10:24)
[2023-12-07] MEDS ORDERED: iohexol 300mg/ml 100ml inj. ONE (10:45)
[2023-12-07] MEDS: MESSAGE TO NURSING IV SCH (11:52)
[2023-12-07] MEDS ORDERED: metFORMIN 500mg tablet PO SCH (17:30)
[2023-12-07] MEDS ORDERED: VANCOMYCIN LEVEL IV ONE (18:30)
[2023-12-07] MEDS ORDERED: atorvastatin 20mg tablet PO SCH (21:00)
[2023-12-07] MEDS: insulin glargine (Lantus) pen - multi-dose SQ SCH (21:00)
[2023-12-08] MEDS: cefepime 2g/NS 100ml ADVANTAGE 100 ML IV SCH ×2 (00:49→07:32)
[2023-12-08] MEDS: vancomycin/NS 1 GM ADD-VANTAGE 250 ML IV SCH (03:22)
[2023-12-08 04:05] VITALS: O2SAT 99
[2023-12-08 06:00] VITALS: BP 122/58; PULSE 71; RESP 17; TEMP 97.2; O2SAT 92
[2023-12-08 06:19] LABS: BASOPHILS % (AUTO) 0.8 % (0-1); EOSINOPHILS # (AUTO) 0.1 X10'3 (0-0.9); EOSINOPHILS % (AUTO) 3.5 % (0-6); HEMATOCRIT 36.6 % (35.0-45.0); HEMOGLOBIN 12.7 g/dl (12.0-16.0); MEAN CORPUSCULAR HEMOGLOBIN 30.2 PG (27.0-31.0); MEAN CORPUSCULAR HGB CONC 34.6 g/dL (33.0-36.5); MEAN CORPUSCULAR VOLUME 87.3 FL (78-98); MEAN PLATELET VOLUME 7.7 FL (7.4-10.4); MONOCYTES # (AUTO) 0.6 X10'3 (0-0.9); MONOCYTES % (AUTO) 14.5 % (2-12); NEUTROPHILS # (AUTO) 2.4 X10'3 (1.8-7.7); NEUTROPHILS % (AUTO) 57.2 % (42-75); PLATELET COUNT 219 X10'3 (140-440); RED BLOOD COUNT 4.19 X10'6 (4.20-5.60); RED CELL DISTRIBUTION WIDTH 13.3 % (11.5-14.5); WHITE BLOOD COUNT 4.1 X10'3 (4.5-11.0)
[2023-12-08 06:34] LABS: ALANINE AMINOTRANSFERASE 20 U/L (12-78); ALBUMIN 2.7 G/DL (3.4-5.0); ALBUMIN/GLOBULIN RATIO 0.6 (1.1-1.5); ALKALINE PHOSPHATASE 75 IU/L (46-116); ANION GAP 9 (8-16); ASPARTATE AMINO TRANSFERASE 17 U/L (10-37); BILIRUBIN,TOTAL 0.3 MG/DL (0.1-1.0); BLOOD UREA NITROGEN 14 MG/DL (7-18); BUN/CREATININE RATIO 23.3 (10.0-20.0); CALCIUM 8.9 MG/DL (8.5-10.1); CHLORIDE 104 MMOL/L (99-107); GLUCOSE 114 MG/DL (70-104); POTASSIUM 3.7 MMOL/L (3.5-5.1); SODIUM 138 MMOL/L (135-145); TOTAL CARBON DIOXIDE 25.4 MMOL/L (24-32); eCRCL 108 ML/MIN; eGFR > 90 ML/MIN
[2023-12-08] MEDS: pregabalin 75mg capsule PO SCH ×2 (07:35→13:11)
[2023-12-08] MEDS: enoxaparin 40mg/0.4ml syringe SUBCUT SCH (07:35)
[2023-12-08] MEDS: clopidogrel 75mg tablet PO SCH (07:36)
[2023-12-08] MEDS: docusate sod 100mg capsule PO SCH (07:38)
[2023-12-08] MEDS: K and/or MAG REPLACEMENT MC SCH (07:38)
[2023-12-08] MEDS ORDERED: lisinopril 20mg tablet PO SCH (08:00)
[2023-12-08] MEDS ORDERED: HYDROchlorothiazide 25mg tablet PO SCH (08:00)
[2023-12-08] MEDS: normal saline 1000ml 1,000 ML IV SCH (09:59)
[2023-12-08 10:00] VITALS: BP 140/65; PULSE 62; RESP 15; TEMP 98.3; O2SAT 100
[2023-12-08 10:47] VITALS: RESP 18; O2SAT 97
[2023-12-08] MEDS: MESSAGE TO NURSING IV SCH (11:00)
[2023-12-08] MEDS ORDERED: VANCOmycin 1250MG/NS 250ml Bag 250 ML IV SCH (11:00)
[2023-12-08] MEDS ORDERED: CEPH250T PO (12:12)
[2023-12-09] MEDS ORDERED: VANCOMYCIN LEVEL IV ONE (10:30)
== END 2023-12-08 13:30 | disposition home or self-care (01) | DRG 383 ==
LOC: ER 11:22 → ED HOLD 17:33 → ORTHO 4S 19:10
PROVIDERS: ADMIT Internal Medicine; ATTEND Internal Medicine
PROC: BW2110Z Computerized Tomography (CT Scan) of Abdomen and Pelvis using Low Osmolar Contrast, Unenhanced and Enhanced (ICD-10-PCS; principal; 2023-12-07)
DX: L03.116 Cellulitis of left lower limb (principal); E11.22 Type 2 diabetes mellitus with diabetic chronic kidney disease; E87.8 Other disorders of electrolyte and fluid balance, not elsewhere classified; E87.1 Hypo-osmolality and hyponatremia; J44.89 Other specified chronic obstructive pulmonary disease; F32.A Depression, unspecified; F41.9 Anxiety disorder, unspecified; N18.2 Chronic kidney disease, stage 2 (mild); E78.00 Pure hypercholesterolemia, unspecified; I12.9 Hypertensive chronic kidney disease with stage 1 through stage 4 chronic kidney disease, or unspecified chronic kidney disease; Z83.3 Family history of diabetes mellitus; Z86.718 Personal history of other venous thrombosis and embolism; Z87.440 Personal history of urinary (tract) infections; Z87.442 Personal history of urinary calculi; Z89.512 Acquired absence of left leg below knee; Z88.0 Allergy status to penicillin
CPT/HCPCS: 36415; 71046; 74177; 80053; 80061; 80202; 81001; 82948; 83036; 83605; 83735; 84145; 85025; 87040; 87081; 93971; 99285; A6212; A6258; G0378; J0692; J1650; J1815; J3370; J3490; J7030; Q9967

== ENCOUNTER 2024-04-13 08:45 | Day surgery (SDC) | payer MEDICAID ==
[~2024-04-13] VITALS: Ht 172.7 cm; Wt 113.6 kg
[~2024-04-13 08:45] MED LIST changes: +LISI1TAB51 PO
[2024-04-13 09:22] VITALS: BP 138/77; PULSE 105; RESP 16
[2024-04-13] MEDS ORDERED: MIDAZolam 1 MG/ML 5ML VIAL ONE (09:41)
[2024-04-13] MEDS ORDERED: fentaNYL/PF 50MCG/1 ML 2ML syringe ONE (09:41)
[2024-04-13 10:08] VITALS: BP 108/80; PULSE 86; RESP 15; O2SAT 95
[2024-04-13 10:18] VITALS: BP 118/70; PULSE 88; RESP 14; O2SAT 95
[2024-04-13 10:28] VITALS: BP 115/102; PULSE 87; RESP 12; O2SAT 96
[2024-04-13 10:38] VITALS: BP 107/69; PULSE 84; RESP 13; O2SAT 95
== END 2024-04-13 11:00 | disposition home or self-care (01) ==
LOC: GI LAB 08:45
PROVIDERS: ATTEND Internal Medicine Gastroenterology
DX: Z12.11 Encounter for screening for malignant neoplasm of colon (principal); K63.5 Polyp of colon; K64.8 Other hemorrhoids; E11.40 Type 2 diabetes mellitus with diabetic neuropathy, unspecified; E66.9 Obesity, unspecified; J44.9 Chronic obstructive pulmonary disease, unspecified; I73.9 Peripheral vascular disease, unspecified; Z90.49 Acquired absence of other specified parts of digestive tract; Z68.38 Body mass index [BMI] 38.0-38.9, adult
CPT/HCPCS: 45385; 82948; 99152; J2250; J3010; J7030; Z7512; A4620; C1889

== ENCOUNTER 2024-07-16 09:12 | Inpatient (IN) | payer MEDICAID ==
[~2024-07-16] VITALS: Ht 172.7 cm; Wt 109.9 kg
[2024-07-16 10:57] LABS: BASOPHILS # (AUTO) 0.1 X10'3 (0-0.2); BASOPHILS % (AUTO) 0.6 % (0-1); EOSINOPHILS # (AUTO) 0.1 X10'3 (0-0.9); EOSINOPHILS % (AUTO) 0.7 % (0-6); HEMATOCRIT 36.7 % (35.0-45.0); HEMOGLOBIN 12.6 g/dl (12.0-16.0); LYMPHOCYTES # (AUTO) 1.4 X10'3 (1.1-4.8); LYMPHOCYTES % (AUTO) 14.2 % (21-51); MEAN CORPUSCULAR HEMOGLOBIN 29.7 PG (27.0-31.0); MEAN CORPUSCULAR HGB CONC 34.4 g/dL (33.0-36.5); MEAN CORPUSCULAR VOLUME 86.4 FL (78-98); MEAN PLATELET VOLUME 7.3 FL (7.4-10.4); MONOCYTES # (AUTO) 0.7 X10'3 (0-0.9); MONOCYTES % (AUTO) 7.7 % (2-12); NEUTROPHILS # (AUTO) 7.4 X10'3 (1.8-7.7); NEUTROPHILS % (AUTO) 76.8 % (42-75); PLATELET COUNT 406 X10'3 (140-440); RED BLOOD COUNT 4.24 X10'6 (4.20-5.60); RED CELL DISTRIBUTION WIDTH 14.2 % (11.5-14.5); WHITE BLOOD COUNT 9.7 X10'3 (4.5-11.0)
[2024-07-16 11:02] LABS: ALBUMIN 3.6 G/DL (3.4-5.0); ANION GAP 7 (8-16); BLOOD UREA NITROGEN 16 MG/DL (7-18); BUN/CREATININE RATIO 26.2 (10.0-20.0); CALCIUM 9.6 MG/DL (8.5-10.1); CHLORIDE 91 MMOL/L (99-107); CREATININE 0.61 MG/DL (0.40-0.90); GLUCOSE 88 MG/DL (70-104); POTASSIUM 3.5 MMOL/L (3.5-5.1); SODIUM 128 MMOL/L (135-145); TOTAL CARBON DIOXIDE 29.8 MMOL/L (24-32); eCRCL 105 ML/MIN; eGFR > 90 ML/MIN
[2024-07-16] MEDS ORDERED: acetaminophen 650mg rectal suppository RC PRN (11:35)
[2024-07-16] MEDS ORDERED: bisacodyl 10mg suppository rectal RC PRN (11:35)
[2024-07-16] MEDS ORDERED: mag hydrox/Alum hydrox/simeth 30ml oral suspension PO PRN (11:35)
[2024-07-16] MEDS ORDERED: ondansetron/PF 4mg/2ml inj IV PRN (11:35)
[2024-07-16] MEDS ORDERED: morphine 2 MG/ML inj. syringe IV PRN ×2 (11:35)
[2024-07-16] MEDS ORDERED: diphenhydrAMINE 25mg capsule PO PRN (11:35)
[2024-07-16] MEDS ORDERED: ondansetron 4mg rapidly disintigrating tab PO PRN (11:35)
[2024-07-16] MEDS ORDERED: diphenhydrAMINE 50 mg/ml inj IV PRN (11:35)
[2024-07-16 12:25] LABS: APTT 29 SECONDS (22-32); PROTHROMBIN TIME 10.9 SECONDS (9.0-12.0)
[2024-07-16] MEDS ORDERED: dextrose 50%-water 50ml dispensing syringe IV PRN ×2 (12:30)
[2024-07-16] MEDS ORDERED: glucagon, human recombinant 1mg kit SUBCUT PRN (12:30)
[2024-07-16] MEDS ORDERED: DEXTROSE 15 GM of carb/4 tabs (each vial/BOTTLE has 4 tablets) PO PRN (12:30)
[2024-07-16 12:45] LABS: HEMOGLOBIN A1C 5.8 % (4.5-6.2); MAGNESIUM 1.6 MG/DL (1.5-2.4); PHOSPHORUS 3.6 MG/DL (2.3-4.5)
[2024-07-16] MEDS: normal saline 1000ml 1,000 ML IV SCH (13:22)
[2024-07-16 13:31] LABS: THYROID STIMULATING HORMONE 0.82 ulU/ml (0.34-4.50)
[2024-07-16] MEDS ORDERED: LORA10TA7 PO (15:18)
[2024-07-16] MEDS ORDERED: FLUT16SP BOTHNARES (15:20)
[2024-07-16] MEDS ORDERED: BUDE10.22 INH (15:20)
[2024-07-16] MEDS ORDERED: SEMA14TA2 PO (15:21)
[2024-07-16 15:48] LABS: BILIRUBIN,URINE NEGATIVE (Neg); CLARITY,URINE CLEAR (Clear); COLOR,URINE YELLOW (Yellow); GLUCOSE, URINE NEGATIVE (Neg); KETONES,URINE NEGATIVE (Neg); LEUKOCYTE ESTERASE ,URINE NEGATIVE (Neg); NITRITES, URINE NEGATIVE (Neg); OCCULT BLOOD,URINE NEGATIVE (Neg); PROTEIN,URINE NEGATIVE (Neg); UA COLLECTION TYPE CLN CATCH MIDSTREAM; UROBILINOGEN,URINE 0.2 E.U/dL (0.2-1.0)
[2024-07-16] MEDS: INSULIN LISPRO 100 UNIT/ML INSULN.PEN MULTI-DOSE SQ SCH (17:00)
[2024-07-16 18:00] VITALS: BP 141/69; PULSE 73; RESP 17; TEMP 98.1; O2SAT 97
[2024-07-16] MEDS ORDERED: albuterol 2.5 MG/3 ML nebule NEB PRN (18:05)
[2024-07-16] MEDS ORDERED: baclofen 10mg tablet PO PRN (18:05)
[2024-07-16] MEDS: Budesonide/Formoterol Fumarate (Symbicort 80-4.5 Mcg Inhaler) IH SCH (20:00)
[2024-07-16] MEDS: Methocarbamol 750 MG TAB PO SCH (21:00)
[2024-07-16] MEDS: docusate sod 100mg capsule PO SCH (21:32)
[2024-07-16] MEDS: heparin, porcine 5000 units/ml vial SQ SCH (21:32)
[2024-07-16] MEDS: HYDROcodone/acetaminophen 10/325mg tab PO PRN (21:33)
[2024-07-16] MEDS: temazepam 15mg capsule PO PRN (21:33)
[2024-07-16] MEDS: atorvastatin 20mg tablet PO SCH (21:33)
[2024-07-16] MEDS: pregabalin 75mg capsule PO SCH (21:33)
[2024-07-16] MEDS: fluticasone nasal spray 16GM bottle NS SCH (21:33)
[2024-07-16 22:00] VITALS: BP 141/64; PULSE 78; RESP 18; TEMP 96.9; O2SAT 96
[2024-07-16] MEDS: insulin glargine (Lantus) pen - multi-dose SQ SCH (22:35)
[2024-07-17 06:39] LABS: BASOPHILS # (AUTO) 0.1 X10'3 (0-0.2); BASOPHILS % (AUTO) 0.9 % (0-1); EOSINOPHILS # (AUTO) 0.2 X10'3 (0-0.9); EOSINOPHILS % (AUTO) 2.4 % (0-6); HEMATOCRIT 36.7 % (35.0-45.0); HEMOGLOBIN 12.4 g/dl (12.0-16.0); LYMPHOCYTES # (AUTO) 1.5 X10'3 (1.1-4.8); LYMPHOCYTES % (AUTO) 23.4 % (21-51); MEAN CORPUSCULAR HEMOGLOBIN 29.4 PG (27.0-31.0); MEAN CORPUSCULAR HGB CONC 33.9 g/dL (33.0-36.5); MEAN CORPUSCULAR VOLUME 86.7 FL (78-98); MEAN PLATELET VOLUME 7.3 FL (7.4-10.4); MONOCYTES # (AUTO) 0.6 X10'3 (0-0.9); MONOCYTES % (AUTO) 9.1 % (2-12); NEUTROPHILS % (AUTO) 64.2 % (42-75); PLATELET COUNT 367 X10'3 (140-440); RED BLOOD COUNT 4.23 X10'6 (4.20-5.60); RED CELL DISTRIBUTION WIDTH 14.1 % (11.5-14.5); WHITE BLOOD COUNT 6.3 X10'3 (4.5-11.0)
[2024-07-17 07:06] LABS: ALANINE AMINOTRANSFERASE 29 U/L (12-78); ALBUMIN/GLOBULIN RATIO 0.7 (1.1-1.5); ALKALINE PHOSPHATASE 77 IU/L (46-116); ANION GAP 6 (8-16); ASPARTATE AMINO TRANSFERASE 25 U/L (10-37); BILIRUBIN,TOTAL 0.2 MG/DL (0.1-1.0); BLOOD UREA NITROGEN 13 MG/DL (7-18); BUN/CREATININE RATIO 21.7 (10.0-20.0); CALCIUM 8.8 MG/DL (8.5-10.1); CHLORIDE 96 MMOL/L (99-107); CHOL/HDL RATIO 4.8 (0.00-4.99); CHOLESTEROL 121 MG/DL (0-200); GLUCOSE 89 MG/DL (70-104); HDL CHOLESTEROL 25 MG/DL (35-60); LDL CHOLESTEROL 55 MG/DL (50-100); POTASSIUM 3.5 MMOL/L (3.5-5.1); SODIUM 132 MMOL/L (135-145); TOTAL CARBON DIOXIDE 29.6 MMOL/L (24-32); TOTAL PROTEIN 7.3 G/DL (6.4-8.2); TRIGLYCERIDES 233 MG/DL (20-135); eCRCL 107 ML/MIN; eGFR > 90 ML/MIN
[2024-07-17 07:32] VITALS: BP 140/62; PULSE 74; RESP 17; TEMP 97.2; O2SAT 97
[2024-07-17] MEDS: clopidogrel 75mg tablet PO SCH (07:34)
[2024-07-17] MEDS: loratadine 10mg tablet PO SCH (07:35)
[2024-07-17] MEDS: lisinopril 20mg tablet PO SCH (07:35)
[2024-07-17] MEDS: pantoprazole 40mg Tablet.DR PO SCH (07:35)
[2024-07-17] MEDS: HYDROchlorothiazide 12.5mg capsule PO SCH (07:35)
[2024-07-17] MEDS: nicotine 21mg patch - 24 hr TD SCH (07:36)
[2024-07-17] MEDS: levoFLOXACIN-Levaquin 750MG/D5 150 ML IV SCH (07:36)
[2024-07-17 08:20] VITALS: RESP 12; O2SAT 96
[2024-07-17 11:39] VITALS: BP 154/72; PULSE 83; RESP 12; TEMP 97.4; O2SAT 93
[2024-07-17] MEDS: ringers solution, lacted 1,000 ML IV ONE (15:04)
[2024-07-17 18:00] VITALS: BP 183/90; PULSE 95; RESP 18; TEMP 98.1; O2SAT 98
[2024-07-17] MEDS: quetiapine 100mg tablet PO PRN (19:50)
[2024-07-17 22:00] VITALS: BP 141/59; PULSE 82; RESP 18; TEMP 97.7; O2SAT 95
[2024-07-18 06:00] VITALS: BP 142/62; PULSE 78; RESP 18; TEMP 96.8; O2SAT 96
[2024-07-18 08:03] LABS: BASOPHILS % (AUTO) 0.8 % (0-1); EOSINOPHILS # (AUTO) 0.1 X10'3 (0-0.9); EOSINOPHILS % (AUTO) 1.5 % (0-6); HEMATOCRIT 33.7 % (35.0-45.0); HEMOGLOBIN 11.5 g/dl (12.0-16.0); LYMPHOCYTES # (AUTO) 1.2 X10'3 (1.1-4.8); LYMPHOCYTES % (AUTO) 20.3 % (21-51); MEAN CORPUSCULAR HEMOGLOBIN 29.8 PG (27.0-31.0); MEAN CORPUSCULAR VOLUME 87.6 FL (78-98); MEAN PLATELET VOLUME 7.5 FL (7.4-10.4); MONOCYTES # (AUTO) 0.5 X10'3 (0-0.9); NEUTROPHILS # (AUTO) 4.2 X10'3 (1.8-7.7); NEUTROPHILS % (AUTO) 69.4 % (42-75); PLATELET COUNT 334 X10'3 (140-440); RED BLOOD COUNT 3.85 X10'6 (4.20-5.60); WHITE BLOOD COUNT 6.1 X10'3 (4.5-11.0)
[2024-07-18 08:34] LABS: ALANINE AMINOTRANSFERASE 23 U/L (12-78); ALBUMIN 2.8 G/DL (3.4-5.0); ALBUMIN/GLOBULIN RATIO 0.7 (1.1-1.5); ALKALINE PHOSPHATASE 68 IU/L (46-116); ANION GAP 10 (8-16); ASPARTATE AMINO TRANSFERASE 16 U/L (10-37); BILIRUBIN,TOTAL 0.2 MG/DL (0.1-1.0); BLOOD UREA NITROGEN 11 MG/DL (7-18); CALCIUM 8.7 MG/DL (8.5-10.1); CHLORIDE 98 MMOL/L (99-107); CREATININE 0.55 MG/DL (0.40-0.90); GLUCOSE 79 MG/DL (70-104); POTASSIUM 3.6 MMOL/L (3.5-5.1); SODIUM 136 MMOL/L (135-145); TOTAL CARBON DIOXIDE 28.1 MMOL/L (24-32); TOTAL PROTEIN 6.7 G/DL (6.4-8.2); eCRCL 117 ML/MIN; eGFR > 90 ML/MIN
[2024-07-18 10:00] VITALS: BP 140/68; PULSE 82; RESP 15; TEMP 97.1; O2SAT 94
[2024-07-18] MEDS ORDERED: iohexol 350 MG/ML 50ML vial IV ONE (15:38)
[2024-07-18] MEDS ORDERED: iohexol 350MG/ML 100ml bottle IV ONE ×2 (15:39→16:17)
[2024-07-18 18:00] VITALS: BP 160/81; PULSE 94; RESP 15; TEMP 97.8; O2SAT 97
[2024-07-18 20:00] VITALS: RESP 15; O2SAT 97
[2024-07-18 22:00] VITALS: BP 130/63; PULSE 79; RESP 14; TEMP 97.8; O2SAT 97
[2024-07-19] VITALS (7 sets, daily range): BP systolic 101–152; BP diastolic 56–82; PULSE 68–85; RESP 12–16; TEMP 96.1–97.6; O2SAT 92–97
[2024-07-19 05:36] LABS: BASOPHILS % (AUTO) 0.7 % (0-1); EOSINOPHILS # (AUTO) 0.1 X10'3 (0-0.9); HEMATOCRIT 31.3 % (35.0-45.0); HEMOGLOBIN 10.9 g/dl (12.0-16.0); LYMPHOCYTES # (AUTO) 1.5 X10'3 (1.1-4.8); LYMPHOCYTES % (AUTO) 24.9 % (21-51); MEAN CORPUSCULAR HEMOGLOBIN 30.2 PG (27.0-31.0); MEAN CORPUSCULAR HGB CONC 34.8 g/dL (33.0-36.5); MEAN CORPUSCULAR VOLUME 86.8 FL (78-98); MEAN PLATELET VOLUME 7.3 FL (7.4-10.4); MONOCYTES # (AUTO) 0.5 X10'3 (0-0.9); MONOCYTES % (AUTO) 7.8 % (2-12); NEUTROPHILS # (AUTO) 3.9 X10'3 (1.8-7.7); NEUTROPHILS % (AUTO) 64.6 % (42-75); RED BLOOD COUNT 3.61 X10'6 (4.20-5.60); RED CELL DISTRIBUTION WIDTH 13.9 % (11.5-14.5)
[2024-07-19 05:51] LABS: PLATELET COUNT 324 X10'3 (140-440)
[2024-07-19 05:52] LABS: ALANINE AMINOTRANSFERASE 23 U/L (12-78); ALBUMIN 2.7 G/DL (3.4-5.0); ALBUMIN/GLOBULIN RATIO 0.7 (1.1-1.5); ALKALINE PHOSPHATASE 67 IU/L (46-116); ANION GAP 7 (8-16); ASPARTATE AMINO TRANSFERASE 15 U/L (10-37); BILIRUBIN,TOTAL 0.3 MG/DL (0.1-1.0); BLOOD UREA NITROGEN 11 MG/DL (7-18); BUN/CREATININE RATIO 17.2 (10.0-20.0); CALCIUM 8.6 MG/DL (8.5-10.1); CHLORIDE 98 MMOL/L (99-107); CREATININE 0.64 MG/DL (0.40-0.90); GLUCOSE 73 MG/DL (70-104); POTASSIUM 3.4 MMOL/L (3.5-5.1); SODIUM 133 MMOL/L (135-145); TOTAL CARBON DIOXIDE 28.4 MMOL/L (24-32); TOTAL PROTEIN 6.6 G/DL (6.4-8.2); eCRCL 100 ML/MIN; eGFR > 90 ML/MIN
[2024-07-19] MEDS ORDERED: magnesium sulf-water 4G/100mL 100 ML IV PRN (07:20)
[2024-07-19] MEDS ORDERED: magnesium sulf-water 2g/50mL 50 ML IV PRN (07:20)
[2024-07-19] MEDS ORDERED: potassium Cl 20 mEq SR tablet PO PRN (07:20)
[2024-07-19] MEDS ORDERED: magnesium Cl slow-release 64mg tablet PO PRN (07:20)
[2024-07-19] MEDS ORDERED: potassium Cl 40MEQ/1/2NS 520ml 520 ML IV PRN (07:20)
[2024-07-19] MEDS: K and/or MAG REPLACEMENT MC SCH (08:10)
[2024-07-19] MEDS: DEXTROSE 15 GM of carb/4 tabs (each vial/BOTTLE has 4 tablets) PO PRN (08:16)
[2024-07-19] MEDS: potassium Cl 20 mEq SR tablet PO PRN (08:16)
[2024-07-19] MEDS: levoFLOXACIN 750MG TABLET PO SCH (13:11)
[2024-07-19] MEDS: insulin glargine (Lantus) pen - multi-dose SQ SCH (20:36)
[2024-07-20] VITALS (12 sets, daily range): BP systolic 102–175; BP diastolic 58–95; PULSE 74–104; RESP 14–18; TEMP 97.7–98.7; O2SAT 95–99
[2024-07-20] MEDS ORDERED: metoprolol tartrate 1mg/ml inj IV PRN (03:30)
[2024-07-20] MEDS ORDERED: nitroGLYCERIN 0.4mg SUBLingual tab SL PRN (03:30)
[2024-07-20] MEDS ORDERED: aminophylline 250mg/10ml inj. IV PRN (03:30)
[2024-07-20] MEDS: levoFLOXACIN-Levaquin 750MG/D5 150 ML IV SCH (07:17)
[2024-07-20 07:53] LABS: BASOPHILS # (AUTO) 0.1 X10'3 (0-0.2); BASOPHILS % (AUTO) 0.8 % (0-1); EOSINOPHILS # (AUTO) 0.1 X10'3 (0-0.9); EOSINOPHILS % (AUTO) 1.8 % (0-6); HEMATOCRIT 35.2 % (35.0-45.0); HEMOGLOBIN 11.9 g/dl (12.0-16.0); LYMPHOCYTES % (AUTO) 14.6 % (21-51); MEAN CORPUSCULAR HEMOGLOBIN 29.7 PG (27.0-31.0); MEAN CORPUSCULAR HGB CONC 33.9 g/dL (33.0-36.5); MEAN CORPUSCULAR VOLUME 87.5 FL (78-98); MEAN PLATELET VOLUME 7.4 FL (7.4-10.4); MONOCYTES # (AUTO) 0.5 X10'3 (0-0.9); MONOCYTES % (AUTO) 6.7 % (2-12); NEUTROPHILS # (AUTO) 5.2 X10'3 (1.8-7.7); NEUTROPHILS % (AUTO) 76.1 % (42-75); PLATELET COUNT 347 X10'3 (140-440); RED BLOOD COUNT 4.02 X10'6 (4.20-5.60); RED CELL DISTRIBUTION WIDTH 13.8 % (11.5-14.5); WHITE BLOOD COUNT 6.8 X10'3 (4.5-11.0)
[2024-07-20 08:13] LABS: ALANINE AMINOTRANSFERASE 23 U/L (12-78); ALBUMIN 3.1 G/DL (3.4-5.0); ALBUMIN/GLOBULIN RATIO 0.8 (1.1-1.5); ALKALINE PHOSPHATASE 76 IU/L (46-116); ANION GAP 7 (8-16); ASPARTATE AMINO TRANSFERASE 19 U/L (10-37); BILIRUBIN,TOTAL 0.3 MG/DL (0.1-1.0); BLOOD UREA NITROGEN 11 MG/DL (7-18); BUN/CREATININE RATIO 17.5 (10.0-20.0); CALCIUM 9.2 MG/DL (8.5-10.1); CHLORIDE 97 MMOL/L (99-107); CREATININE 0.63 MG/DL (0.40-0.90); GLUCOSE 87 MG/DL (70-104); MAGNESIUM 1.7 MG/DL (1.5-2.4); POTASSIUM 4.1 MMOL/L (3.5-5.1); SODIUM 133 MMOL/L (135-145); TOTAL CARBON DIOXIDE 28.8 MMOL/L (24-32); TOTAL PROTEIN 7.2 G/DL (6.4-8.2); eCRCL 102 ML/MIN; eGFR > 90 ML/MIN
[2024-07-20] MEDS: magnesium hydroxide 30ml (MOM) UD suspension PO PRN (08:20)
[2024-07-20] MEDS: acetaminophen 325mg tablet PO PRN (15:45)
[2024-07-20] MEDS: regadenoson 0.4mg/5ml syringe IV PRN (17:05)
[2024-07-21] VITALS (23 sets, daily range): BP systolic 91–146; BP diastolic 36–71; PULSE 68–86; RESP 8–18; TEMP 98; O2SAT 92–100
[2024-07-21 07:44] LABS: BASOPHILS % (AUTO) 0.7 % (0-1); EOSINOPHILS # (AUTO) 0.2 X10'3 (0-0.9); EOSINOPHILS % (AUTO) 2.8 % (0-6); HEMOGLOBIN 12.1 g/dl (12.0-16.0); LYMPHOCYTES # (AUTO) 1.1 X10'3 (1.1-4.8); LYMPHOCYTES % (AUTO) 18.8 % (21-51); MEAN CORPUSCULAR HEMOGLOBIN 29.9 PG (27.0-31.0); MEAN CORPUSCULAR HGB CONC 34.5 g/dL (33.0-36.5); MEAN CORPUSCULAR VOLUME 86.5 FL (78-98); MEAN PLATELET VOLUME 7.2 FL (7.4-10.4); MONOCYTES # (AUTO) 0.4 X10'3 (0-0.9); MONOCYTES % (AUTO) 6.7 % (2-12); NEUTROPHILS # (AUTO) 4.3 X10'3 (1.8-7.7); PLATELET COUNT 349 X10'3 (140-440); RED BLOOD COUNT 4.05 X10'6 (4.20-5.60); RED CELL DISTRIBUTION WIDTH 13.9 % (11.5-14.5); WHITE BLOOD COUNT 6.1 X10'3 (4.5-11.0)
[2024-07-21 07:46] LABS: PROTHROMBIN TIME 10.9 SECONDS (9.0-12.0)
[2024-07-21 07:50] LABS: ALANINE AMINOTRANSFERASE 19 U/L (12-78); ALBUMIN 3.2 G/DL (3.4-5.0); ALBUMIN/GLOBULIN RATIO 0.8 (1.1-1.5); ALKALINE PHOSPHATASE 79 IU/L (46-116); ANION GAP 4 (8-16); ASPARTATE AMINO TRANSFERASE 18 U/L (10-37); BILIRUBIN,TOTAL 0.3 MG/DL (0.1-1.0); BLOOD UREA NITROGEN 12 MG/DL (7-18); BUN/CREATININE RATIO 19.7 (10.0-20.0); CALCIUM 9.2 MG/DL (8.5-10.1); CHLORIDE 97 MMOL/L (99-107); CREATININE 0.61 MG/DL (0.40-0.90); GLUCOSE 81 MG/DL (70-104); MAGNESIUM 1.9 MG/DL (1.5-2.4); POTASSIUM 3.8 MMOL/L (3.5-5.1); SODIUM 130 MMOL/L (135-145); TOTAL CARBON DIOXIDE 29.2 MMOL/L (24-32); TOTAL PROTEIN 7.1 G/DL (6.4-8.2); eCRCL 105 ML/MIN; eGFR > 90 ML/MIN
[2024-07-21] MEDS: ringers solution, lacted 1,000 ML IV SCH (07:50)
[2024-07-21] MEDS ORDERED: ondansetron/PF 4mg/2ml inj IV PRN (07:50)
[2024-07-21] MEDS ORDERED: morphine 4 MG/ML inj SYRINge IV PRN (07:50)
[2024-07-21] MEDS ORDERED: labetalol 20mg/4ml (5mg/ml) syringe IV PRN (07:50)
[2024-07-21] MEDS ORDERED: morphine 2 MG/ML inj. syringe IV PRN (07:50)
[2024-07-21] MEDS ORDERED: hydrALAZINE 20mg/ml inj. IV PRN ×2 (07:50→16:00)
[2024-07-21] MEDS ORDERED: ondansetron/PF 4mg/2ml inj ONE (09:24)
[2024-07-21] MEDS ORDERED: rocuronium 10mg/ml inj IV ONE ×3 (09:24→13:06)
[2024-07-21] MEDS ORDERED: fentaNYL /PF 50mcg/ml 5ml ampule ONE (09:24)
[2024-07-21] MEDS ORDERED: LIDOcaine 2% (20mg/ml) 5ml vial ONE (09:24)
[2024-07-21] MEDS ORDERED: MIDAZolam 1 MG/ML 5ML VIAL ONE (09:24)
[2024-07-21] MEDS ORDERED: propofol inj 20 ML IV ONE (09:24)
[2024-07-21] MEDS ORDERED: sevoflurane 250ml liquid IH ONE (09:30)
[2024-07-21] MEDS ORDERED: albumin (Human) 5% 250ml 250 ML IV ONE ×3 (10:07→12:57)
[2024-07-21] MEDS: albumin (Human) 5% 250ml 500 ML IV ONE (10:30)
[2024-07-21] MEDS ORDERED: acetaminophen 1,000mg/100ml IV 100 ML IV ONE (10:34)
[2024-07-21] MEDS ORDERED: ePHEDrine 50MG/ML INJ. ONE (10:45)
[2024-07-21] MEDS ORDERED: heparin 1,000unit/ml 10ml vial 10 ML ONE ×2 (11:02→13:06)
[2024-07-21] MEDS: heparin 10,000 units/1 ML INJ ONE (11:12)
[2024-07-21] MEDS: iohexol 300 MG/1 ML 50ml polymer ONE ×2 (12:18→13:33)
[2024-07-21] MEDS ORDERED: fentaNYL/PF 50MCG/1 ML 2ML syringe ONE (12:24)
[2024-07-21] MEDS: iohexol 300 MG/1 ML 50ml polymer IV ONE (13:14)
[2024-07-21] MEDS ORDERED: sugammadex 200mg/2ml injection IV ONE (13:37)
[2024-07-21 14:27] LABS: ISTAT ANION GAP 11 (8-12); ISTAT BUN 10 mg/dL (7-18); ISTAT CL 96 mmol/L (99-107); ISTAT CREATININE 0.6 mg/dL (0.6-1.1); ISTAT GLUCOSE 121 mg/dL (70-104); ISTAT HGB 9.9 g/dl (12.0-16.0); ISTAT Hct 29 %PCV (35-45); ISTAT IONIZED CALCIUM 1.17 mmol/L (1.03-1.32); ISTAT K 4.4 mmol/L (3.5-5.1); ISTAT NA 132 mmol/L (135-145); ISTAT TOTAL CO2 25 mmol/L (24-32); ISTAT eGFR > 90 ML/MIN; POC BUN/CREATININE RATIO 16.7 (6.6-38.0)
[2024-07-21 14:32] LABS: APTT > 139 SECONDS (22-32)
[2024-07-21] MEDS: fentaNYL/PF 50MCG/1 ML 2ML syringe IV PRN ×2 (15:00→15:30)
[2024-07-21 15:38] LABS: APTT > 139 SECONDS (22-32)
[2024-07-21] MEDS ORDERED: HYDROmorphone 1 mg/ml syringe IV PRN (18:15)
[2024-07-21] MEDS: HYDROmorphone inj. 0.5 MG/0.5 ML DISP.SYRIN IV PRN (20:22)
[2024-07-21] MEDS: albumin (Human) 5% 250ml 250 ML IV ONE ×2 (21:53→22:43)
[2024-07-22] VITALS (28 sets, daily range): BP systolic 87–185; BP diastolic 33–68; PULSE 78–115; RESP 11–25; O2SAT 89–97
[2024-07-22 02:33] LABS: BASOPHILS % (AUTO) 0.5 % (0-1); EOSINOPHILS # (AUTO) 0.1 X10'3 (0-0.9); EOSINOPHILS % (AUTO) 1.7 % (0-6); HEMATOCRIT 25.1 % (35.0-45.0); HEMOGLOBIN 8.6 g/dl (12.0-16.0); LYMPHOCYTES # (AUTO) 0.8 X10'3 (1.1-4.8); LYMPHOCYTES % (AUTO) 11.3 % (21-51); MEAN CORPUSCULAR HGB CONC 34.4 g/dL (33.0-36.5); MEAN CORPUSCULAR VOLUME 87.1 FL (78-98); MEAN PLATELET VOLUME 7.3 FL (7.4-10.4); MONOCYTES # (AUTO) 0.5 X10'3 (0-0.9); MONOCYTES % (AUTO) 7.4 % (2-12); NEUTROPHILS # (AUTO) 5.7 X10'3 (1.8-7.7); NEUTROPHILS % (AUTO) 79.1 % (42-75); PLATELET COUNT 308 X10'3 (140-440); RED BLOOD COUNT 2.88 X10'6 (4.20-5.60); RED CELL DISTRIBUTION WIDTH 14.3 % (11.5-14.5); WHITE BLOOD COUNT 7.1 X10'3 (4.5-11.0)
[2024-07-22 02:47] LABS: ALANINE AMINOTRANSFERASE 18 U/L (12-78); ALBUMIN 3.1 G/DL (3.4-5.0); ALBUMIN/GLOBULIN RATIO 1.1 (1.1-1.5); ALKALINE PHOSPHATASE 56 IU/L (46-116); ANION GAP 7 (8-16); ASPARTATE AMINO TRANSFERASE 13 U/L (10-37); BILIRUBIN,TOTAL 0.5 MG/DL (0.1-1.0); BLOOD UREA NITROGEN 11 MG/DL (7-18); BUN/CREATININE RATIO 18.3 (10.0-20.0); CALCIUM 8.2 MG/DL (8.5-10.1); CHLORIDE 99 MMOL/L (99-107); GLUCOSE 95 MG/DL (70-104); MAGNESIUM 1.6 MG/DL (1.5-2.4); POTASSIUM 3.9 MMOL/L (3.5-5.1); SODIUM 133 MMOL/L (135-145); TOTAL PROTEIN 5.9 G/DL (6.4-8.2); eCRCL 107 ML/MIN; eGFR > 90 ML/MIN
[2024-07-22] MEDS: albumin (human) 25% 100 ML IV solution IV ONE (06:57)
[2024-07-22] MEDS: apixaban 5mg tablet PO SCH (06:59)
[2024-07-22] MEDS: linezolid 600mg/300ml PREMIX 300 ML IV SCH (12:36)
[2024-07-22] MEDS: HYDROcodone/acetaminophen 5mg/325mg tablet PO PRN (14:46)
[2024-07-22] MEDS: furosemide 20 MG/2 ML vial IV SCH (16:00)
[2024-07-22 18:18] LABS: HEMATOCRIT 27.7 % (35.0-45.0); HEMOGLOBIN 9.6 g/dl (12.0-16.0); MEAN CORPUSCULAR HEMOGLOBIN 30.1 PG (27.0-31.0); MEAN CORPUSCULAR HGB CONC 34.5 g/dL (33.0-36.5); MEAN CORPUSCULAR VOLUME 87.4 FL (78-98); MEAN PLATELET VOLUME 7.4 FL (7.4-10.4); PLATELET COUNT 314 X10'3 (140-440); RED BLOOD COUNT 3.17 X10'6 (4.20-5.60); RED CELL DISTRIBUTION WIDTH 14.5 % (11.5-14.5); WHITE BLOOD COUNT 7.5 X10'3 (4.5-11.0)
[2024-07-22] MEDS: acetaminophen 325mg tablet PO PRN (18:31)
[2024-07-23] VITALS (37 sets, daily range): BP systolic 70–127; BP diastolic 30–58; PULSE 82–96; RESP 10–18; O2SAT 91–100
[2024-07-23 03:47] LABS: BASOPHILS % (AUTO) 0.6 % (0-1); EOSINOPHILS # (AUTO) 0.1 X10'3 (0-0.9); EOSINOPHILS % (AUTO) 1.4 % (0-6); HEMOGLOBIN 8.6 g/dl (12.0-16.0); LYMPHOCYTES # (AUTO) 0.8 X10'3 (1.1-4.8); LYMPHOCYTES % (AUTO) 13.9 % (21-51); MEAN CORPUSCULAR HEMOGLOBIN 29.9 PG (27.0-31.0); MEAN CORPUSCULAR HGB CONC 34.3 g/dL (33.0-36.5); MEAN CORPUSCULAR VOLUME 87.2 FL (78-98); MEAN PLATELET VOLUME 7.1 FL (7.4-10.4); MONOCYTES # (AUTO) 0.7 X10'3 (0-0.9); MONOCYTES % (AUTO) 11.4 % (2-12); NEUTROPHILS # (AUTO) 4.4 X10'3 (1.8-7.7); NEUTROPHILS % (AUTO) 72.7 % (42-75); PLATELET COUNT 275 X10'3 (140-440); RED BLOOD COUNT 2.87 X10'6 (4.20-5.60); RED CELL DISTRIBUTION WIDTH 14.6 % (11.5-14.5); WHITE BLOOD COUNT 6.1 X10'3 (4.5-11.0)
[2024-07-23 04:06] LABS: ALANINE AMINOTRANSFERASE 16 U/L (12-78); ALBUMIN 3.2 G/DL (3.4-5.0); ALBUMIN/GLOBULIN RATIO 1.1 (1.1-1.5); ALKALINE PHOSPHATASE 49 IU/L (46-116); ANION GAP 5 (8-16); ASPARTATE AMINO TRANSFERASE 8 U/L (10-37); BILIRUBIN,TOTAL 0.4 MG/DL (0.1-1.0); BLOOD UREA NITROGEN 16 MG/DL (7-18); BUN/CREATININE RATIO 18.6 (10.0-20.0); CALCIUM 8.4 MG/DL (8.5-10.1); CHLORIDE 95 MMOL/L (99-107); CREATININE 0.86 MG/DL (0.40-0.90); GLUCOSE 122 MG/DL (70-104); MAGNESIUM 1.9 MG/DL (1.5-2.4); POTASSIUM 3.8 MMOL/L (3.5-5.1); SODIUM 129 MMOL/L (135-145); TOTAL CARBON DIOXIDE 29.5 MMOL/L (24-32); TOTAL PROTEIN 6.1 G/DL (6.4-8.2); eCRCL 75 ML/MIN; eGFR 69 ML/MIN
[2024-07-23] MEDS ORDERED: normal saline 1000ml 1,000 ML IV SCH (08:25)
[2024-07-23] MEDS: albumin (Human) 5% 250ml 250 ML IV ONE ×2 (08:51→10:07)
[2024-07-23] MEDS ORDERED: cefepime 2g/NS 100ml ADVANTAGE 100 ML IV SCH (10:40)
[2024-07-23] MEDS: metroNIDAZOLE-Flagyl 500mg/NS 100 ML IV SCH (12:00)
[2024-07-23] MEDS: ketorolac trometh 30MG/ML vial 30 MG/ML VIAL IV PRN (18:00)
[2024-07-23] MEDS: cefepime 2g/NS 100ml ADVANTAGE 100 ML IV SCH (20:25)
[2024-07-24] VITALS (25 sets, daily range): BP systolic 106–161; BP diastolic 43–74; PULSE 74–93; RESP 10–19; TEMP 98.2–98.7; O2SAT 93–99
[2024-07-24 03:57] LABS: BASOPHILS % (AUTO) 0.6 % (0-1); EOSINOPHILS # (AUTO) 0.2 X10'3 (0-0.9); EOSINOPHILS % (AUTO) 2.1 % (0-6); HEMATOCRIT 24.4 % (35.0-45.0); HEMOGLOBIN 8.4 g/dl (12.0-16.0); LYMPHOCYTES # (AUTO) 0.7 X10'3 (1.1-4.8); LYMPHOCYTES % (AUTO) 9.5 % (21-51); MEAN CORPUSCULAR HEMOGLOBIN 30.1 PG (27.0-31.0); MEAN CORPUSCULAR HGB CONC 34.5 g/dL (33.0-36.5); MEAN CORPUSCULAR VOLUME 87.2 FL (78-98); MEAN PLATELET VOLUME 7.3 FL (7.4-10.4); MONOCYTES # (AUTO) 0.8 X10'3 (0-0.9); MONOCYTES % (AUTO) 9.9 % (2-12); NEUTROPHILS # (AUTO) 6.2 X10'3 (1.8-7.7); NEUTROPHILS % (AUTO) 77.9 % (42-75); PLATELET COUNT 263 X10'3 (140-440); RED BLOOD COUNT 2.79 X10'6 (4.20-5.60); RED CELL DISTRIBUTION WIDTH 14.6 % (11.5-14.5); WHITE BLOOD COUNT 7.9 X10'3 (4.5-11.0)
[2024-07-24 04:03] LABS: ALANINE AMINOTRANSFERASE 21 U/L (12-78); ALBUMIN 3.1 G/DL (3.4-5.0); ALKALINE PHOSPHATASE 53 IU/L (46-116); ANION GAP 7 (8-16); ASPARTATE AMINO TRANSFERASE 15 U/L (10-37); BILIRUBIN,TOTAL 0.4 MG/DL (0.1-1.0); BLOOD UREA NITROGEN 21 MG/DL (7-18); CALCIUM 8.5 MG/DL (8.5-10.1); CHLORIDE 95 MMOL/L (99-107); CREATININE 0.84 MG/DL (0.40-0.90); GLUCOSE 154 MG/DL (70-104); MAGNESIUM 1.9 MG/DL (1.5-2.4); POTASSIUM 4.1 MMOL/L (3.5-5.1); SODIUM 129 MMOL/L (135-145); TOTAL CARBON DIOXIDE 27.3 MMOL/L (24-32); TOTAL PROTEIN 6.2 G/DL (6.4-8.2); eCRCL 76 ML/MIN; eGFR 70 ML/MIN
[2024-07-24] MEDS: quetiapine 100mg tablet PO SCH (20:22)
[2024-07-25] VITALS (11 sets, daily range): BP systolic 90–138; BP diastolic 46–78; PULSE 75–96; RESP 11–20; TEMP 97.2–98.8; O2SAT 95–100
[2024-07-25 07:29] LABS: BASOPHILS % (AUTO) 0.4 % (0-1); EOSINOPHILS # (AUTO) 0.2 X10'3 (0-0.9); EOSINOPHILS % (AUTO) 3.4 % (0-6); HEMATOCRIT 24.3 % (35.0-45.0); HEMOGLOBIN 8.4 g/dl (12.0-16.0); LYMPHOCYTES # (AUTO) 0.9 X10'3 (1.1-4.8); LYMPHOCYTES % (AUTO) 14.1 % (21-51); MEAN CORPUSCULAR HEMOGLOBIN 30.6 PG (27.0-31.0); MEAN CORPUSCULAR HGB CONC 34.7 g/dL (33.0-36.5); MEAN CORPUSCULAR VOLUME 88.1 FL (78-98); MEAN PLATELET VOLUME 7.6 FL (7.4-10.4); MONOCYTES # (AUTO) 0.6 X10'3 (0-0.9); MONOCYTES % (AUTO) 10.1 % (2-12); NEUTROPHILS # (AUTO) 4.5 X10'3 (1.8-7.7); PLATELET COUNT 226 X10'3 (140-440); RED BLOOD COUNT 2.76 X10'6 (4.20-5.60); RED CELL DISTRIBUTION WIDTH 14.4 % (11.5-14.5); WHITE BLOOD COUNT 6.3 X10'3 (4.5-11.0)
[2024-07-25 07:47] LABS: ALANINE AMINOTRANSFERASE 22 U/L (12-78); ALBUMIN 2.9 G/DL (3.4-5.0); ALBUMIN/GLOBULIN RATIO 0.8 (1.1-1.5); ALKALINE PHOSPHATASE 49 IU/L (46-116); ANION GAP 8 (8-16); ASPARTATE AMINO TRANSFERASE 19 U/L (10-37); BILIRUBIN,TOTAL 0.3 MG/DL (0.1-1.0); BLOOD UREA NITROGEN 22 MG/DL (7-18); BUN/CREATININE RATIO 28.6 (10.0-20.0); CALCIUM 8.6 MG/DL (8.5-10.1); CHLORIDE 97 MMOL/L (99-107); CREATININE 0.77 MG/DL (0.40-0.90); GLUCOSE 103 MG/DL (70-104); POTASSIUM 3.6 MMOL/L (3.5-5.1); SODIUM 130 MMOL/L (135-145); TOTAL CARBON DIOXIDE 25.3 MMOL/L (24-32); TOTAL PROTEIN 6.4 G/DL (6.4-8.2); eCRCL 83 ML/MIN; eGFR 78 ML/MIN
[2024-07-25 08:05] LABS: FERRITIN 208 NG/ML (8-252)
[2024-07-25 08:44] LABS: % IRON SATURATION 17 % (11-46); IRON 29 UG/DL (49-151); TOTAL IRON BINDING CAPACITY 174 UG/DL (259-388)
[2024-07-25] MEDS: normal saline 1000ml 1,000 ML IV SCH (19:25)
[2024-07-26] VITALS (11 sets, daily range): BP systolic 101–135; BP diastolic 46–60; PULSE 78–118; RESP 13–24; TEMP 97–99.9; O2SAT 94–98
[2024-07-26] MEDS: linezolid 600mg tablet PO SCH (02:37)
[2024-07-26 07:12] LABS: BASOPHILS % (AUTO) 0.6 % (0-1); EOSINOPHILS # (AUTO) 0.2 X10'3 (0-0.9); EOSINOPHILS % (AUTO) 3.4 % (0-6); HEMATOCRIT 25.7 % (35.0-45.0); HEMOGLOBIN 8.5 g/dl (12.0-16.0); LYMPHOCYTES % (AUTO) 14.4 % (21-51); MEAN CORPUSCULAR HEMOGLOBIN 29.5 PG (27.0-31.0); MEAN CORPUSCULAR HGB CONC 33.3 g/dL (33.0-36.5); MEAN CORPUSCULAR VOLUME 88.4 FL (78-98); MEAN PLATELET VOLUME 7.4 FL (7.4-10.4); MONOCYTES # (AUTO) 0.7 X10'3 (0-0.9); MONOCYTES % (AUTO) 10.1 % (2-12); NEUTROPHILS # (AUTO) 4.7 X10'3 (1.8-7.7); NEUTROPHILS % (AUTO) 71.5 % (42-75); PLATELET COUNT 285 X10'3 (140-440); RED CELL DISTRIBUTION WIDTH 14.6 % (11.5-14.5); WHITE BLOOD COUNT 6.6 X10'3 (4.5-11.0)
[2024-07-26 07:47] LABS: ALANINE AMINOTRANSFERASE 24 U/L (12-78); ALBUMIN/GLOBULIN RATIO 0.9 (1.1-1.5); ALKALINE PHOSPHATASE 53 IU/L (46-116); ANION GAP 9 (8-16); ASPARTATE AMINO TRANSFERASE 15 U/L (10-37); BILIRUBIN,TOTAL 0.4 MG/DL (0.1-1.0); BLOOD UREA NITROGEN 21 MG/DL (7-18); BUN/CREATININE RATIO 30.9 (10.0-20.0); CALCIUM 8.6 MG/DL (8.5-10.1); CHLORIDE 100 MMOL/L (99-107); CREATININE 0.68 MG/DL (0.40-0.90); GLUCOSE 94 MG/DL (70-104); POTASSIUM 3.6 MMOL/L (3.5-5.1); SODIUM 133 MMOL/L (135-145); TOTAL CARBON DIOXIDE 23.8 MMOL/L (24-32); TOTAL PROTEIN 6.4 G/DL (6.4-8.2); eCRCL 94 ML/MIN; eGFR 90 ML/MIN
[2024-07-26] MEDS: metroNIDAZOLE 500mg tablet PO SCH (12:39)
[2024-07-26] MEDS: cefepime 2g/NS 100ml ADVANTAGE 100 ML IV SCH (16:40)
[2024-07-27] VITALS (7 sets, daily range): BP systolic 102–139; BP diastolic 46–56; PULSE 79–90; RESP 14–24; TEMP 97.4–99.5; O2SAT 94–99
[2024-07-27] MEDS ORDERED: METR-159 PO (15:33)
[2024-07-28] MEDS ORDERED: ferrous sulfate 325mg tablet PO SCH (08:00)
== END 2024-07-27 15:39 | disposition home health service (06) | DRG 181 ==
LOC: ER 09:13 → ED HOLD 11:39 → ORTHO 4S 16:00 → CICU 2S 07-21 14:46 → PCU 3S 07-24 16:47
PROVIDERS: ADMIT Family Medicine; ATTEND Family Medicine
PROC: 06BP0ZZ Excision of Right Saphenous Vein, Open Approach (ICD-10-PCS; 2024-07-21)
PROC: B41FZZZ Fluoroscopy of Right Lower Extremity Arteries (ICD-10-PCS; 2024-07-21)
PROC: 04CM0ZZ Extirpation of Matter from Right Popliteal Artery, Open Approach (ICD-10-PCS; principal; 2024-07-21 09:30)
DX: E11.51 Type 2 diabetes mellitus with diabetic peripheral angiopathy without gangrene (principal); A41.9 Sepsis, unspecified organism; I27.20 Pulmonary hypertension, unspecified; E11.610 Type 2 diabetes mellitus with diabetic neuropathic arthropathy; L03.115 Cellulitis of right lower limb; E87.1 Hypo-osmolality and hyponatremia; E11.621 Type 2 diabetes mellitus with foot ulcer; M86.8X7 Other osteomyelitis, ankle and foot; E11.40 Type 2 diabetes mellitus with diabetic neuropathy, unspecified; E11.69 Type 2 diabetes mellitus with other specified complication; L97.519 Non-pressure chronic ulcer of other part of right foot with unspecified severity; S91.301A Unspecified open wound, right foot, initial encounter; E78.5 Hyperlipidemia, unspecified; E11.65 Type 2 diabetes mellitus with hyperglycemia; E66.9 Obesity, unspecified; E87.6 Hypokalemia; F32.A Depression, unspecified; G89.4 Chronic pain syndrome; I11.0 Hypertensive heart disease with heart failure; I50.32 Chronic diastolic (congestive) heart failure; K57.30 Diverticulosis of large intestine without perforation or abscess without bleeding; K76.0 Fatty (change of) liver, not elsewhere classified; D64.9 Anemia, unspecified; F41.9 Anxiety disorder, unspecified; Z68.34 Body mass index [BMI] 34.0-34.9, adult; Z72.0 Tobacco use; Z79.02 Long term (current) use of antithrombotics/antiplatelets; Z83.3 Family history of diabetes mellitus; Z86.718 Personal history of other venous thrombosis and embolism; Z88.0 Allergy status to penicillin; Z88.1 Allergy status to other antibiotic agents; Z88.8 Allergy status to other drugs, medicaments and biological substances; Z88.2 Allergy status to sulfonamides; Z89.512 Acquired absence of left leg below knee; X58.XXXA Exposure to other specified factors, initial encounter; Y93.89 Activity, other specified; Y92.89 Other specified places as the place of occurrence of the external cause; Y99.8 Other external cause status
CPT/HCPCS: 36415; 36569; 71045; 73590; 73630; 73718; 75635; 76942; 78452; 80047; 80048; 80053; 80061; 81003; 82607; 82728; 82948; 83036; 83540; 83550; 83605; 83735; 83880; 84100; 84145; 84443; 85025; 85027; 85610; 85651; 85730; 86885; 86900; 86901; 87040; 87070; 87077; 87081; 87088; 93005; 93017; 93922; 93970; 94640; 94760; 97110; 97116; 97161; 97164; 97530; 97535; 99285; A4615; A4618; A6213; A6258; A6402; A6446; A6449; A6455; A7000; A9500; C1751; C1758; C1768; G0378; J0131; J0692; J1170; J1644; J1815; J1885; J1956; J2020; J2250; J2405; J2704; J2765; J2785; J3010; J3490; J7030; J7040; J7120; P9045; P9047; Q9967

== ENCOUNTER 2024-07-29 17:22 | Inpatient (IN) | payer MEDICAID ==
[~2024-07-29] VITALS: Ht 172.7 cm; Wt 113.6 kg
[~2024-07-29 17:22] MED LIST changes: -ACET-1025 PO; +BUDE10.22 INH; +FLUT16SP BOTHNARES; -LIDO1ADH58; -LISI1TAB53 PO; +LORA10TA7 PO; +METR-159 PO; -MUPI22OI30 TP; +SEMA14TA2 PO
--- NOTE | 2024-07-29 17:53 | NUR ---
patient placed in room and on the monitor.
[2024-07-29 19:25] LABS: BASOPHILS # (AUTO) 0.1 X10'3 (0-0.2); EOSINOPHILS # (AUTO) 0.3 X10'3 (0-0.9); EOSINOPHILS % (AUTO) 2.5 % (0-6); HEMATOCRIT 26.3 % (35.0-45.0); HEMOGLOBIN 8.9 g/dl (12.0-16.0); LYMPHOCYTES # (AUTO) 1.9 X10'3 (1.1-4.8); LYMPHOCYTES % (AUTO) 15.5 % (21-51); MEAN CORPUSCULAR HEMOGLOBIN 29.8 PG (27.0-31.0); MEAN CORPUSCULAR VOLUME 87.7 FL (78-98); MONOCYTES # (AUTO) 1.1 X10'3 (0-0.9); MONOCYTES % (AUTO) 9.4 % (2-12); NEUTROPHILS # (AUTO) 8.7 X10'3 (1.8-7.7); NEUTROPHILS % (AUTO) 71.6 % (42-75); PLATELET COUNT 414 X10'3 (140-440); RED CELL DISTRIBUTION WIDTH 14.4 % (11.5-14.5); WHITE BLOOD COUNT 12.2 X10'3 (4.5-11.0)
[2024-07-29 19:43] LABS: ALANINE AMINOTRANSFERASE 26 U/L (12-78); ALBUMIN 3.3 G/DL (3.4-5.0); ALBUMIN/GLOBULIN RATIO 0.9 (1.1-1.5); ALKALINE PHOSPHATASE 75 IU/L (46-116); ANION GAP 9 (8-16); ASPARTATE AMINO TRANSFERASE 20 U/L (10-37); BILIRUBIN,TOTAL 0.5 MG/DL (0.1-1.0); BLOOD UREA NITROGEN 21 MG/DL (7-18); BUN/CREATININE RATIO 34.4 (10.0-20.0); CALCIUM 9.3 MG/DL (8.5-10.1); CHLORIDE 97 MMOL/L (99-107); CREATININE 0.61 MG/DL (0.40-0.90); GLUCOSE 98 MG/DL (70-104); POTASSIUM 3.4 MMOL/L (3.5-5.1); SODIUM 133 MMOL/L (135-145); TOTAL CARBON DIOXIDE 27.2 MMOL/L (24-32); TOTAL PROTEIN 7.1 G/DL (6.4-8.2); eCRCL 105 ML/MIN; eGFR > 90 ML/MIN
[2024-07-29 19:49] LABS: MAGNESIUM 1.8 MG/DL (1.5-2.4); PRO BRAIN NATRIURETIC PEPTIDE 360 PG/ML (0-125)
[2024-07-29] MEDS ORDERED: iohexol 350MG/ML 100ml bottle IV ONE (20:06)
[2024-07-29] MEDS: normal saline 1000ml 1,000 ML IV ONE (20:40)
[2024-07-29] MEDS: CefTRIAXone/D5W-Rocephin 1gm 50 ML IV ONE (20:41)
[2024-07-29] MEDS: ondansetron/PF 4mg/2ml inj IV ONE (20:41)
[2024-07-29] MEDS: morphine 4 MG/ML inj SYRINge IV ONE (20:41)
[2024-07-29] MEDS ORDERED: acetaminophen 325mg tablet PO PRN (21:30)
[2024-07-29] MEDS ORDERED: magnesium sulf-water 4G/100mL 100 ML IV PRN (21:30)
[2024-07-29] MEDS ORDERED: magnesium Cl slow-release 64mg tablet PO PRN (21:30)
[2024-07-29] MEDS ORDERED: morphine 2 MG/ML inj. syringe IV PRN ×2 (21:30)
[2024-07-29] MEDS ORDERED: potassium Cl 20 mEq SR tablet PO PRN (21:30)
[2024-07-29] MEDS ORDERED: magnesium sulf-water 2g/50mL 50 ML IV PRN (21:30)
[2024-07-29] MEDS ORDERED: potassium Cl 40MEQ/1/2NS 520ml 520 ML IV PRN (21:30)
[2024-07-29] MEDS ORDERED: magnesium hydroxide 30ml (MOM) UD suspension PO PRN (21:30)
[2024-07-29] MEDS ORDERED: glucagon, human recombinant 1mg kit SUBCUT PRN (21:40)
[2024-07-29] MEDS ORDERED: non-formulary drug (Albuterol Sulfate (Ventolin Hfa) 2 PUFFS) INH PRN (21:40)
[2024-07-29] MEDS ORDERED: dextrose 50%-water 50ml dispensing syringe IV PRN ×2 (21:40)
[2024-07-29] MEDS ORDERED: DEXTROSE 15 GM of carb/4 tabs (each vial/BOTTLE has 4 tablets) PO PRN ×2 (21:40)
[2024-07-29 22:13] LABS: APTT 26 SECONDS (22-32); INR 1.1 INR; PROTHROMBIN TIME 11.3 SECONDS (9.0-12.0)
[2024-07-29] MEDS ORDERED: albuterol 2.5 MG/3 ML nebule NEB PRN (22:15)
[2024-07-29] MEDS ORDERED: baclofen 10mg tablet PO PRN (22:15)
[2024-07-29] MEDS: nicotine 14mg patch - 24hr TD ONE (22:48)
--- NOTE | 2024-07-29 22:55 | NUR ---
MED RECONCILLIATION COMPLETED BY ADMITTING RESIDENT .
--- NOTE | 2024-07-29 22:56 | NUR ---
REPORT ATTEMPTED X 1, RN UNAVAILABLE AND TO CALL BACK SHORTLY.
[2024-07-29 23:00] VITALS: BP 121/67; PULSE 65; RESP 16; TEMP 97.8; O2SAT 96
--- NOTE | 2024-07-29 23:50 | NUR ---
Received report from Say PAINTING, patient is in room 348B, Stable, assuming care of patient.
[2024-07-30] VITALS (9 sets, daily range): BP systolic 98–153; BP diastolic 43–82; PULSE 72–93; RESP 14–20; TEMP 97.5–98.5; O2SAT 92–98
[2024-07-30] MEDS: potassium Cl 20 mEq SR tablet PO PRN (00:10)
[2024-07-30] MEDS: quetiapine 100mg tablet PO PRN (00:11)
[2024-07-30] MEDS: metroNIDAZOLE-Flagyl 500mg/NS 100 ML IV SCH (00:11)
[2024-07-30] MEDS: cefepime 2g/NS 100ml ADVANTAGE 100 ML IV SCH (00:29)
[2024-07-30] MEDS: albuterol 2.5 MG/3 ML nebule NEB SCH (02:54)
[2024-07-30 04:46] LABS: BASOPHILS # (AUTO) 0.1 X10'3 (0-0.2); BASOPHILS % (AUTO) 0.8 % (0-1); EOSINOPHILS # (AUTO) 0.3 X10'3 (0-0.9); EOSINOPHILS % (AUTO) 3.1 % (0-6); HEMATOCRIT 23.1 % (35.0-45.0); HEMOGLOBIN 7.8 g/dl (12.0-16.0); LYMPHOCYTES # (AUTO) 1.8 X10'3 (1.1-4.8); LYMPHOCYTES % (AUTO) 21.7 % (21-51); MEAN CORPUSCULAR HEMOGLOBIN 29.7 PG (27.0-31.0); MEAN CORPUSCULAR HGB CONC 33.8 g/dL (33.0-36.5); MEAN CORPUSCULAR VOLUME 87.8 FL (78-98); MEAN PLATELET VOLUME 6.9 FL (7.4-10.4); MONOCYTES # (AUTO) 0.8 X10'3 (0-0.9); MONOCYTES % (AUTO) 9.2 % (2-12); NEUTROPHILS # (AUTO) 5.4 X10'3 (1.8-7.7); NEUTROPHILS % (AUTO) 65.2 % (42-75); PLATELET COUNT 356 X10'3 (140-440); RED BLOOD COUNT 2.63 X10'6 (4.20-5.60); RED CELL DISTRIBUTION WIDTH 14.3 % (11.5-14.5); WHITE BLOOD COUNT 8.2 X10'3 (4.5-11.0)
[2024-07-30 04:55] LABS: ALBUMIN 2.7 G/DL (3.4-5.0); ANION GAP 6 (8-16); BLOOD UREA NITROGEN 13 MG/DL (7-18); BUN/CREATININE RATIO 21.3 (10.0-20.0); CALCIUM 8.2 MG/DL (8.5-10.1); CHLORIDE 103 MMOL/L (99-107); CREATININE 0.61 MG/DL (0.40-0.90); GLUCOSE 99 MG/DL (70-104); POTASSIUM 3.8 MMOL/L (3.5-5.1); SODIUM 137 MMOL/L (135-145); TOTAL CARBON DIOXIDE 28.5 MMOL/L (24-32); eCRCL 105 ML/MIN; eGFR > 90 ML/MIN
[2024-07-30] MEDS: normal saline 1000ml 1,000 ML IV ONE (05:31)
[2024-07-30] MEDS: normal saline 1000ml 1,000 ML IV SCH (05:32)
--- NOTE | 2024-07-30 06:16 | NUR ---
[place] jumpbasting armhole baster: I have reviewed and agree with all interventions, assessments performed and documented by [place] RN .
--- NOTE | 2024-07-30 06:59 | NUR ---
Spoke with Dr. Perez, he gave the order that is OK to use PICC
--- NOTE | 2024-07-30 06:59 | NUR ---
Patient in room KUSUM 348. I have received report from Zac and had the opportunity to ask questions and assume patient care.
[2024-07-30] MEDS: INSULIN LISPRO 100 UNIT/ML INSULN.PEN MULTI-DOSE SQ SCH (07:00)
[2024-07-30] MEDS: K and/or MAG REPLACEMENT MC SCH (08:00)
[2024-07-30] MEDS: HYDROchlorothiazide 12.5mg capsule PO SCH (08:00)
[2024-07-30] MEDS: SEMAGLUTIDE PO SCH (08:00)
[2024-07-30] MEDS ORDERED: METHOCARBAMOL PO SCH (08:00)
[2024-07-30] MEDS ORDERED: lisinopril 20mg tablet PO SCH (08:00)
[2024-07-30] MEDS: budesonide 0.5mg/2ml UD nebule IH SCH (08:00)
[2024-07-30] MEDS: enoxaparin 40mg/0.4ml syringe SUBCUT SCH (08:14)
[2024-07-30] MEDS: pregabalin 75mg capsule PO SCH (08:15)
[2024-07-30] MEDS: clopidogrel 75mg tablet PO SCH (08:16)
[2024-07-30] MEDS: HYDROcodone/acetaminophen 10/325mg tab PO PRN (09:55)
--- NOTE | 2024-07-30 11:06 | NUR ---
PRESSURE ULCER EDUCATION: DEFINITION: A pressure ulcer is an area of skin that breaks down when you stay in one position too long. The constant pressure against the skin reduces the blood flow to that area and the affected tissue dies. CAUSES: "Being bedridden or in a wheelchair "Fragile skin "Having a chronic condition, such as diabetes or vascular disease "Inability to move certain parts of your body without assistance "Older age "Incontinence of urine or stool SYMPTOMS: "A reddened area that DOES NOT turn white when pressed on - this can be the beginning of a pressure ulcer "A blister, deep sore or a crater - these can be advanced pressure ulcers FIRST AID: "Relieve the pressure on this area "Keep the area clean and dry "Call your primary doctor if you see any of the above symptoms "DO NOT massage the area "DO NOT use a donut shaped or ring shaped pillow- these actually interfere with the blood flow and cause complications PREVENTION: "Check for pressure ulcers everyday "Change position at least every two hours to relieve pressure "Use items that help relieve pressure- pillows, sheepskin, foam padding, and powders. "Keep skin clean and dry "Eat healthy well balanced meals "Exercise daily IF YOU SEE ANY OF THESE SYMPTOMS WHILE IN THE HOSPITAL - TELL YOUR NURSE IMMEDIATELY. IF YOU SEE ANY OF THESE SYMPTOMS WHILE AT HOME OR HAVE ANY QUESTIONS OR CONCERNS ABOUT PRESSURE ULCERS - CALL YOUR PRIMARY DOCTOR IMMEDIATELY. Addendum: 07/30/24 at 1107 by Femi Ellis RN Amended: Links added.
--- NOTE | 2024-07-30 13:13 | NUR ---
epic manager Marya inquired if patient would be willing to try Rehab. Patient stated she would not go to rehab and still prefers to go home at Discharge.
--- NOTE | 2024-07-30 18:39 | NUR ---
Problems reprioritized. Patient report given, questions answered & plan of care reviewed with Zac PAINTING.
--- NOTE | 2024-07-30 18:53 | NUR ---
Patient in room KUSUM 348. I have received report from Cheo PAINTING and had the opportunity to ask questions and assume patient care.
[2024-07-30] MEDS: simvastatin 20mg tablet PO SCH (20:09)
[2024-07-31] VITALS (26 sets, daily range): BP systolic 88–146; BP diastolic 42–67; PULSE 37–107; RESP 10–18; TEMP 96.7–99.5; O2SAT 92–100
--- NOTE | 2024-07-31 05:46 | NUR ---
[place] fireworks display specialist: I have reviewed and agree with all interventions, assessments performed and documented by [place] RN.
--- NOTE | 2024-07-31 06:24 | NUR ---
Problems reprioritized. Patient report given, questions answered & plan of care reviewed with Cheo PAINTING.
--- NOTE | 2024-07-31 06:36 | NUR ---
Patient in room KUSUM 348. I have received report from Zac PAINTING and had the opportunity to ask questions and assume patient care.
--- NOTE | 2024-07-31 08:11 | NUR ---
Dr. Zarate called for patient bleeding from fem pop site. Order to call house sup to prepare OR for repair. House Sup Chasity called and notified. Patient VS are stable at 108/76, HR 94, 98% O2. Pressure applied to fem pop site. Patient with LR @100 ml/hr. Patient A&Ox4 and talking with staff. Bleeding has slowed but restarts when pressure relieved. Will continue with the plan of care, pressure still maintained.
--- NOTE | 2024-07-31 08:25 | NUR ---
Message: Yudy surg [address], K 348b Patient heard a "pop" at graft site and it is bleeding profusely. Dr Zarate and OR team on way to take patient into surgery. Cannot get ahold of resident.
[2024-07-31] MEDS: heparin 10,000 units/1 ML INJ ONE (08:40)
[2024-07-31] MEDS: morphine 4 MG/ML inj SYRINge IV ONE ×2 (08:44→08:48)
--- NOTE | 2024-07-31 08:44 | NUR ---
1st vial of morphine 4mg IV wasted with [facility] RN's. New order for 4mg morphine will be given
[2024-07-31] MEDS ORDERED: midazolam 1 mg/ML 2ml injection ONE (08:56)
[2024-07-31] MEDS ORDERED: fentaNYL/PF 50MCG/1 ML 2ML syringe ONE (08:56)
[2024-07-31] MEDS ORDERED: sevoflurane 250ml liquid IH ONE (09:12)
[2024-07-31] MEDS ORDERED: ceFAZolin 1000mg inj ONE ×2 (10:37)
[2024-07-31] MEDS ORDERED: propofol inj 20 ML IV ONE (10:37)
[2024-07-31] MEDS ORDERED: rocuronium 10mg/ml inj IV ONE (10:37)
[2024-07-31] MEDS ORDERED: ePHEDrine 50MG/ML INJ. ONE (10:37)
[2024-07-31] MEDS ORDERED: neostigmine methylsulfate 1 MG/ML 10ml vial ONE (10:37)
[2024-07-31] MEDS ORDERED: glycopyrrolate 0.2mg/ml inj ONE (10:38)
--- NOTE | 2024-07-31 10:48 | NUR ---
Received from OR via HOSPITAL BED, accompanied by Anesthesiologist and report given by ALBERTINA Anesthesiologist. PATIENT WAKING UP, NO S/S OF PAIN, V/S WNL, 20G TO RIGHT UPPER ARM PICC, ART LINE RUE, FRYE CATHETER DRAINING 5 CC OF CLOUDY YELLOW URINE, RIGHT GROIN DRESSING C/D/I. RIGHT UPPER LEG SUTURES C/D/I WITH REDNESS. RIGHT FOOT DRESSING C/D/I. RIGHT POPLITEAL PULSE NOTED VIA DOPPLER. Addendum: 07/31/24 at 1111 by Suman Herzog RN Amended: Links added.
[2024-07-31] MEDS ORDERED: morphine 2 MG/ML inj. syringe IV PRN (10:55)
[2024-07-31] MEDS ORDERED: proCHLORperazine 10 MG/2 ml inj IV PRN (10:55)
[2024-07-31] MEDS ORDERED: ondansetron/PF 4mg/2ml inj IV PRN (10:55)
[2024-07-31] MEDS ORDERED: meperidine/PF 25mg/ml syringe IV PRN ×2 (10:55)
[2024-07-31] MEDS: ringers solution, lacted 1,000 ML IV SCH (10:55)
[2024-07-31 11:05] LABS: ISTAT ANION GAP 11 (8-12); ISTAT BUN 10 mg/dL (7-18); ISTAT CL 103 mmol/L (99-107); ISTAT CREATININE 0.5 mg/dL (0.6-1.1); ISTAT GLUCOSE 148 mg/dL (70-104); ISTAT HGB 8.8 g/dl (12.0-16.0); ISTAT Hct 26 %PCV (35-45); ISTAT IONIZED CALCIUM 1.18 mmol/L (1.03-1.32); ISTAT K 4.3 mmol/L (3.5-5.1); ISTAT NA 137 mmol/L (135-145); ISTAT TOTAL CO2 23 mmol/L (24-32); ISTAT eGFR > 90 ML/MIN
[2024-07-31] MEDS: meperidine/PF 25mg/ml syringe IV PRN (11:13)
[2024-07-31] MEDS: heparin 10,000 units/1 ML INJ IV ONE (11:15)
[2024-07-31] MEDS: morphine 4 MG/ML inj SYRINge IV PRN (11:18)
--- NOTE | 2024-07-31 11:45 | NUR ---
1137 RN ASSESSED THAT FRYE WAS NOT IN THE PLACE. REINSERTED NEW FRYE CATHETER VIA STERILE WAY. 500 CC OF CLEAR YELLOW URINE NOTED. PATIENT TOLERATED PROCEDURE WELL. NO S/S OF DISCOMFORT AT THIS TIME.
[2024-07-31] MEDS: acetaminophen 1,000mg/100ml IV 100 ML IV ONE (11:48)
--- NOTE | 2024-07-31 12:18 | NUR ---
PATIENT HAS MET ALL CRITERIA FOR TRANSFER TO SURGICAL FLOOR. VSS. DRESSINGS INTACT. BED LOW, CALL LIGHT PRESENT AND 2 RAILS UP. RN PRESENT TO ACCEPT CARE OF PATIENT AND REPORT HAS BEEN CALLED. ALL QUESTIONS ANSWERED TO ACCEPTING RN-VINCENT. Addendum: 07/31/24 at 1228 by Suman Herzog RN Amended: Links added.
--- NOTE | 2024-07-31 12:26 | NUR ---
Report received from Du PAINTING: contained bleed, pt received 2U PRBCs, Rodríguez inserted in OR, Pt returned to room on bed, pt alert and oriented, Post op VS started. Island dressing has been marked where shadowing has occured.
--- NOTE | 2024-07-31 15:20 | NUR ---
At 0750 Pt found with profuse tevin blood on floor while on the BSC, pt assisted to bed, immediate pressure applied to surgical incision. typists supervisor notified Dr. Oshea. Pt transferred to OR at 0907. Bleed was contained and patient back to floor 1245, Pt arrived a/0 x4, small amt of shadowing to island dressing, Post- op vitals started. IV ABX admin. Pt resting comfortably,
--- NOTE | 2024-07-31 18:51 | NUR ---
Report given back to Zac and Shefali rn'S from Cheo and Yudy RN's. Pt resting comfortably in bed, no current bleeding.
--- NOTE | 2024-07-31 19:03 | NUR ---
Patient in room [facility]. I have received report from ASPEN RN/VINCENT RN and had the opportunity to ask questions and assume patient care.
[2024-08-01] VITALS (10 sets, daily range): BP systolic 95–120; BP diastolic 47–60; PULSE 80–92; RESP 14–20; TEMP 97.1–99.5; O2SAT 92–99
[2024-08-01 05:04] LABS: BASOPHILS % (AUTO) 0.5 % (0-1); EOSINOPHILS # (AUTO) 0.2 X10'3 (0-0.9); LYMPHOCYTES % (AUTO) 12.6 % (21-51); MEAN CORPUSCULAR HEMOGLOBIN 30.2 PG (27.0-31.0); MEAN CORPUSCULAR HGB CONC 33.7 g/dL (33.0-36.5); MEAN CORPUSCULAR VOLUME 89.7 FL (78-98); MEAN PLATELET VOLUME 6.9 FL (7.4-10.4); MONOCYTES # (AUTO) 0.5 X10'3 (0-0.9); MONOCYTES % (AUTO) 6.9 % (2-12); PLATELET COUNT 278 X10'3 (140-440); RED BLOOD COUNT 2.32 X10'6 (4.20-5.60); RED CELL DISTRIBUTION WIDTH 14.4 % (11.5-14.5); WHITE BLOOD COUNT 7.8 X10'3 (4.5-11.0)
[2024-08-01 05:10] LABS: ALBUMIN 1.9 G/DL (3.4-5.0); ANION GAP 9 (8-16); BLOOD UREA NITROGEN 7 MG/DL (7-18); BUN/CREATININE RATIO 18.4 (10.0-20.0); CALCIUM 6.9 MG/DL (8.5-10.1); CHLORIDE 108 MMOL/L (99-107); CREATININE 0.38 MG/DL (0.40-0.90); GLUCOSE 85 MG/DL (70-104); POTASSIUM 3.5 MMOL/L (3.5-5.1); SODIUM 141 MMOL/L (135-145); TOTAL CARBON DIOXIDE 23.7 MMOL/L (24-32); eCRCL 169 ML/MIN; eGFR > 90 ML/MIN
[2024-08-01 05:25] LABS: HEMATOCRIT 20.8 % (35.0-45.0)
--- NOTE | 2024-08-01 05:38 | NUR ---
Critical lab value for Hemoglobin 7.0 and Hematocrit 20.8 called in from the lab. Doctor Resident Rj notified, no new orders given, told to wait until day shift.
--- NOTE | 2024-08-01 06:01 | NUR ---
[place] reed press feeder: I have reviewed and agree with all interventions, assessments performed and documented by [place] RN.
--- NOTE | 2024-08-01 06:33 | NUR ---
Problems reprioritized. Patient report given, questions answered & plan of care reviewed with Yudy PAINTING.
[2024-08-01 10:19] LABS: HEMATOCRIT 24.6 % (35.0-45.0); HEMOGLOBIN 8.3 g/dl (12.0-16.0); MEAN CORPUSCULAR HEMOGLOBIN 30.4 PG (27.0-31.0); MEAN CORPUSCULAR HGB CONC 33.8 g/dL (33.0-36.5); MEAN PLATELET VOLUME 6.9 FL (7.4-10.4); PLATELET COUNT 341 X10'3 (140-440); RED BLOOD COUNT 2.74 X10'6 (4.20-5.60); RED CELL DISTRIBUTION WIDTH 15.2 % (11.5-14.5); WHITE BLOOD COUNT 9.7 X10'3 (4.5-11.0)
[2024-08-01] MEDS: metroNIDAZOLE 500mg tablet PO SCH (17:08)
--- NOTE | 2024-08-01 19:00 | NUR ---
Patient in room [facility]. I have received report from Kat CHUNG and Yudy PAINTING and had the opportunity to ask questions and assume patient care.
--- NOTE | 2024-08-01 19:02 | NUR ---
Report given to Rosie RN, pt resting comfortably in bed
--- NOTE | 2024-08-01 19:02 | NUR ---
Yudy Rn and Kat RN gave report to Rosie PAINTING. Rosie will be taking over care.
[2024-08-01] MEDS: quetiapine 100mg tablet PO ONE (21:00)
[2024-08-01] MEDS: HYDROcodone/acetaminophen 5mg/325mg tablet PO PRN (23:38)
[2024-08-02] VITALS (11 sets, daily range): BP systolic 134–151; BP diastolic 59–69; PULSE 84–96; RESP 16–20; TEMP 97.7–98.1; O2SAT 92–98
[2024-08-02 06:01] LABS: BASOPHILS # (AUTO) 0.1 X10'3 (0-0.2); BASOPHILS % (AUTO) 0.7 % (0-1); EOSINOPHILS # (AUTO) 0.2 X10'3 (0-0.9); EOSINOPHILS % (AUTO) 2.6 % (0-6); HEMATOCRIT 25.2 % (35.0-45.0); HEMOGLOBIN 8.3 g/dl (12.0-16.0); LYMPHOCYTES % (AUTO) 13.2 % (21-51); MEAN CORPUSCULAR HEMOGLOBIN 29.9 PG (27.0-31.0); MEAN CORPUSCULAR HGB CONC 32.9 g/dL (33.0-36.5); MEAN CORPUSCULAR VOLUME 90.7 FL (78-98); MEAN PLATELET VOLUME 6.8 FL (7.4-10.4); MONOCYTES # (AUTO) 0.5 X10'3 (0-0.9); MONOCYTES % (AUTO) 6.5 % (2-12); PLATELET COUNT 316 X10'3 (140-440); RED BLOOD COUNT 2.78 X10'6 (4.20-5.60); RED CELL DISTRIBUTION WIDTH 15.1 % (11.5-14.5); WHITE BLOOD COUNT 7.8 X10'3 (4.5-11.0)
[2024-08-02 06:07] LABS: ALBUMIN 2.4 G/DL (3.4-5.0); ANION GAP 6 (8-16); BLOOD UREA NITROGEN 8 MG/DL (7-18); BUN/CREATININE RATIO 14.8 (10.0-20.0); CALCIUM 8.3 MG/DL (8.5-10.1); CHLORIDE 105 MMOL/L (99-107); CREATININE 0.54 MG/DL (0.40-0.90); GLUCOSE 112 MG/DL (70-104); SODIUM 138 MMOL/L (135-145); TOTAL CARBON DIOXIDE 26.6 MMOL/L (24-32); eCRCL 119 ML/MIN; eGFR > 90 ML/MIN
--- NOTE | 2024-08-02 06:30 | NUR ---
Problems reprioritized. Patient report given, questions answered & plan of care reviewed with Kat CHUNG and Deandra PAINTING.
[2024-08-02] MEDS: RYBELSUS PO SCH (08:34)
--- NOTE | 2024-08-02 15:16 | NUR ---
Spoke to Dr. Zarate regarding pt surgical dressings, change dressing to keep clean and dry. Anne needs to be dc'd, pt is able to get up and walk with PT when she feels ready to. Desmond for pain. Addendum: 08/02/24 at 1520 by Kat Coffman LVN continue to keep pt from being 90 degrees upright
--- NOTE | 2024-08-02 18:17 | NUR ---
Patient in room [facility]. I have received report from Kat CHUNG and Deandra PAINTING and had the opportunity to ask questions and assume patient care.
--- NOTE | 2024-08-02 18:46 | NUR ---
Problems reprioritized. Patient report given, questions answered & plan of care reviewed with Rosie PAINTING.
[2024-08-02] MEDS: ondansetron/PF 4mg/2ml inj IV PRN (19:04)
[2024-08-02] MEDS: quetiapine 100mg tablet PO SCH (20:20)
[2024-08-03 02:53] VITALS: O2SAT 96
[2024-08-03] MEDS: mag hydrox/Alum hydrox/simeth 30ml oral suspension PO PRN (03:48)
[2024-08-03 04:06] LABS: BASOPHILS % (AUTO) 0.4 % (0-1); EOSINOPHILS # (AUTO) 0.2 X10'3 (0-0.9); EOSINOPHILS % (AUTO) 1.8 % (0-6); HEMATOCRIT 27.6 % (35.0-45.0); HEMOGLOBIN 9.3 g/dl (12.0-16.0); LYMPHOCYTES # (AUTO) 0.9 X10'3 (1.1-4.8); LYMPHOCYTES % (AUTO) 8.6 % (21-51); MEAN CORPUSCULAR HEMOGLOBIN 30.3 PG (27.0-31.0); MEAN CORPUSCULAR HGB CONC 33.8 g/dL (33.0-36.5); MEAN CORPUSCULAR VOLUME 89.7 FL (78-98); MEAN PLATELET VOLUME 6.7 FL (7.4-10.4); MONOCYTES # (AUTO) 0.6 X10'3 (0-0.9); MONOCYTES % (AUTO) 5.4 % (2-12); NEUTROPHILS # (AUTO) 8.9 X10'3 (1.8-7.7); NEUTROPHILS % (AUTO) 83.8 % (42-75); PLATELET COUNT 351 X10'3 (140-440); RED BLOOD COUNT 3.08 X10'6 (4.20-5.60); RED CELL DISTRIBUTION WIDTH 15.6 % (11.5-14.5); WHITE BLOOD COUNT 10.7 X10'3 (4.5-11.0)
[2024-08-03 04:13] LABS: ALBUMIN 2.7 G/DL (3.4-5.0); ANION GAP 4 (8-16); BLOOD UREA NITROGEN 6 MG/DL (7-18); BUN/CREATININE RATIO 10.9 (10.0-20.0); CALCIUM 9.1 MG/DL (8.5-10.1); CHLORIDE 99 MMOL/L (99-107); CREATININE 0.55 MG/DL (0.40-0.90); GLUCOSE 96 MG/DL (70-104); POTASSIUM 3.6 MMOL/L (3.5-5.1); SODIUM 135 MMOL/L (135-145); TOTAL CARBON DIOXIDE 31.7 MMOL/L (24-32); eCRCL 117 ML/MIN; eGFR > 90 ML/MIN
--- NOTE | 2024-08-03 06:40 | NUR ---
Problems reprioritized. Patient report given, questions answered & plan of care reviewed with Aretha CHUNG and Melida PAINTING.
--- NOTE | 2024-08-03 06:45 | NUR ---
Patient in room [facility]. I have received report from Rosie RN with Brooke her and had the opportunity to ask questions and assume patient care.
[2024-08-03 07:00] VITALS: BP 145/78; PULSE 88; RESP 18; TEMP 97.1; O2SAT 95
[2024-08-03 08:00] VITALS: RESP 18; O2SAT 95
[2024-08-03 12:51] VITALS: BP 126/69; PULSE 82; RESP 18; TEMP 97.9; O2SAT 97
--- NOTE | 2024-08-03 15:42 | NUR ---
Reviewed [employer] charting and agree with findings. Pt DC to home with family to resume [facility]. Spoke with [facility] who assure that meds would be delivered today and advised pt to take when they arrive then attempt to get back on previous schedule.
== END 2024-08-03 15:45 | disposition home health service (06) | DRG 181 ==
LOC: ER 17:22 → ED HOLD 21:36 → SUR 3N 23:30
PROVIDERS: ADMIT Surgery Surgical Critical Care; ATTEND Family Medicine
PROC: B42H1ZZ Computerized Tomography (CT Scan) of Bilateral Lower Extremity Arteries using Low Osmolar Contrast (ICD-10-PCS; 2024-07-29)
PROC: 0YW Anatomical Regions, Lower Extremities, Revision (ICD-10-PCS; 2024-07-31)
PROC: 04CK0ZZ Extirpation of Matter from Right Femoral Artery, Open Approach (ICD-10-PCS; 2024-07-31)
PROC: 30233N1 Transfusion of Nonautologous Red Blood Cells into Peripheral Vein, Percutaneous Approach (ICD-10-PCS; 2024-07-31)
PROC: 0Y370ZZ Control Bleeding in Right Femoral Region, Open Approach (ICD-10-PCS; principal; 2024-07-31 09:12)
DX: T82.838A Hemorrhage due to vascular prosthetic devices, implants and grafts, initial encounter (principal); E11.610 Type 2 diabetes mellitus with diabetic neuropathic arthropathy; E11.51 Type 2 diabetes mellitus with diabetic peripheral angiopathy without gangrene; E87.1 Hypo-osmolality and hyponatremia; L03.115 Cellulitis of right lower limb; M86.8X7 Other osteomyelitis, ankle and foot; S81.801A Unspecified open wound, right lower leg, initial encounter; E11.40 Type 2 diabetes mellitus with diabetic neuropathy, unspecified; E11.69 Type 2 diabetes mellitus with other specified complication; F32.A Depression, unspecified; E78.00 Pure hypercholesterolemia, unspecified; G89.4 Chronic pain syndrome; G47.00 Insomnia, unspecified; Y83.8 Other surgical procedures as the cause of abnormal reaction of the patient, or of later complication, without mention of misadventure at the time of the procedure; E66.8 Other obesity; X58.XXXA Exposure to other specified factors, initial encounter; F41.9 Anxiety disorder, unspecified; Z79.84 Long term (current) use of oral hypoglycemic drugs; Z79.899 Other long term (current) drug therapy; Z88.0 Allergy status to penicillin; Z88.2 Allergy status to sulfonamides; Z86.718 Personal history of other venous thrombosis and embolism; Z83.3 Family history of diabetes mellitus; Z87.442 Personal history of urinary calculi; Z88.8 Allergy status to other drugs, medicaments and biological substances; Z68.38 Body mass index [BMI] 38.0-38.9, adult; Y93.89 Activity, other specified; Y92.89 Other specified places as the place of occurrence of the external cause; Y99.8 Other external cause status
CPT/HCPCS: 36415; 36430; 71045; 73706; 80047; 80048; 80053; 82948; 83735; 83880; 84145; 85025; 85027; 85610; 85730; 86885; 86900; 86901; 86920; 87081; 93926; 93971; 94640; 94760; 96365; 96375; 97116; 97161; 97530; 99285; A4314; A4618; A6253; A6258; A6446; A6449; A7000; C1758; G0378; J0131; J0690; J0692; J0696; J1644; J1650; J1815; J2175; J2250; J2270; J2405; J2704; J2710; J3010; J3490; J7030; J7040; J7120; P9016; Q9967

== ENCOUNTER 2024-10-11 08:44 | Outpatient (CLI) | payer MEDICAID ==
[~2024-10-11 08:44] MED LIST changes: -METR-159 PO
== END 2024-10-11 23:59 | disposition home or self-care (01) ==
LOC: VAS 08:44
PROVIDERS: ATTEND Surgery
DX: I73.9 Peripheral vascular disease, unspecified (principal)
CPT/HCPCS: 93922; 93925

== ENCOUNTER 2024-11-12 10:20 | Emergency (ER) | payer MEDICAID ==
[~2024-11-12] VITALS: Ht 167.6 cm; Wt 113.6 kg
[2024-11-12 11:18] LABS: BASOPHILS % (AUTO) 0.4 % (0-1); EOSINOPHILS % (AUTO) 0.4 % (0-6); HEMATOCRIT 36.4 % (35.0-45.0); HEMOGLOBIN 12.5 g/dl (12.0-16.0); LYMPHOCYTES # (AUTO) 1.1 X10'3 (1.1-4.8); LYMPHOCYTES % (AUTO) 11.8 % (21-51); MEAN CORPUSCULAR HEMOGLOBIN 29.4 PG (27.0-31.0); MEAN CORPUSCULAR HGB CONC 34.3 g/dL (33.0-36.5); MEAN CORPUSCULAR VOLUME 85.6 FL (78-98); MEAN PLATELET VOLUME 8.4 FL (7.4-10.4); MONOCYTES # (AUTO) 0.7 X10'3 (0-0.9); MONOCYTES % (AUTO) 7.5 % (2-12); NEUTROPHILS # (AUTO) 7.5 X10'3 (1.8-7.7); NEUTROPHILS % (AUTO) 79.9 % (42-75); PLATELET COUNT 330 X10'3 (140-440); RED BLOOD COUNT 4.25 X10'6 (4.20-5.60); RED CELL DISTRIBUTION WIDTH 14.5 % (11.5-14.5); WHITE BLOOD COUNT 9.4 X10'3 (4.5-11.0)
[2024-11-12 11:29] LABS: ALANINE AMINOTRANSFERASE 38 U/L (12-78); ALBUMIN 4.2 G/DL (3.4-5.0); ALKALINE PHOSPHATASE 97 IU/L (46-116); ANION GAP 10 (8-16); ASPARTATE AMINO TRANSFERASE 45 U/L (10-37); BILIRUBIN,TOTAL 0.6 MG/DL (0.1-1.0); BLOOD UREA NITROGEN 40 MG/DL (7-18); BUN/CREATININE RATIO 30.5 (10.0-20.0); CALCIUM 9.3 MG/DL (8.5-10.1); CHLORIDE 99 MMOL/L (99-107); CREATININE 1.31 MG/DL (0.40-0.90); GLUCOSE 128 MG/DL (70-104); POTASSIUM 3.7 MMOL/L (3.5-5.1); SODIUM 139 MMOL/L (135-145); TOTAL CARBON DIOXIDE 29.7 MMOL/L (24-32); TOTAL PROTEIN 8.6 G/DL (6.4-8.2); eCRCL 45 ML/MIN; eGFR 42 ML/MIN
[2024-11-12] MEDS: normal saline 1000ML IV soln IVB ONE (13:38)
[2024-11-12] MEDS: LORazepam 2 mg/ml vial IV ONE ×2 (16:40→20:00)
[2024-11-12] MEDS: normal saline 1000ml 1,000 ML IV ONE (21:05)
[2024-11-12 21:34] LABS: GLUCOSE,CSF 58 MG/DL (40-75); TOTAL PROTEIN,CSF 48 MG/DL (15-45)
[2024-11-12 22:36] LABS: APPEARANCE,CSF CLEAR; CSF SUPERNATANT COLOR COLORLESS; CSF VOLUME 8.3 ML; TUBE# COUNTED 4
[2024-11-12 22:37] LABS: CSF RBC 11.7 /CU MM (0); CSF WBC CT 0.5 /CU MM (0-5)
[2024-11-12] MEDS ORDERED: IBUP-1984 PO (22:53)
[2024-11-12] MEDS ORDERED: ACET-1025 PO (22:53)
[2024-11-12 23:38] VITALS: BP 105/55; PULSE 68; RESP 16; TEMP 98.9; O2SAT 93
== END 2024-11-12 23:49 | disposition home or self-care (01) ==
LOC: ER 10:21
DX: E86.0 Dehydration (principal); J11.1 Influenza due to unidentified influenza virus with other respiratory manifestations; E11.9 Type 2 diabetes mellitus without complications; F41.9 Anxiety disorder, unspecified; E78.00 Pure hypercholesterolemia, unspecified; Z88.0 Allergy status to penicillin; Z88.2 Allergy status to sulfonamides; Z88.8 Allergy status to other drugs, medicaments and biological substances; Z88.1 Allergy status to other antibiotic agents; Z91.030 Bee allergy status; Z79.899 Other long term (current) drug therapy; Z86.718 Personal history of other venous thrombosis and embolism; Z86.73 Personal history of transient ischemic attack (TIA), and cerebral infarction without residual deficits; Z87.440 Personal history of urinary (tract) infections; Z89.512 Acquired absence of left leg below knee; W06.XXXA Fall from bed, initial encounter; Y93.89 Activity, other specified; Y92.89 Other specified places as the place of occurrence of the external cause; Y99.8 Other external cause status
CPT/HCPCS: 36415; 62270; 80053; 82945; 82948; 84157; 85025; 85651; 87015; 87070; 87502; 87503; 89051; 96361; 96374; 99285; J2060; J7030; A4615; C1758